=== PATIENT | female | born 1935 | race Caucasian/White ===

== ENCOUNTER 2019-05-07 17:13 | Inpatient (IN) | payer OTHER, BC ==
--- NOTE | 2019-05-07 17:26 | PDOC ---
History of Present Illness - General Stated Complaint: FALL Time Seen by Provider: 05/07/19 17:23 Past History - Past Medical History Allergies/Adverse Reactions: Allergies Allergy/AdvReac Type Severity Reaction Status Date / Time Penicillins Allergy Mild Rash Verified 05/07/19 17:27 Home Medications: Ambulatory Orders NK [No Known Home Medication] 05/07/19 COPD: Yes - Psycho Social/Smoking Cessation Hx Smoking History: Current every day smoker Have you smoked in the past 12 months: Yes Number of Cigarettes Smoked Daily: 30 'Breaking Loose' booklet given: 10/02/13 Hx Alcohol Use: No Drug/Substance Use Hx: No Substance Use Type: None ED Treatment Course - LABORATORY CBC & Chemistry Diagram: 05/07/19 18:00 05/07/19 18:00 Medical Decision Making - Medical Decision Making 05/07/19 17:49 HPI: 84yo F hx B12 deficiency (hasn't taken meds for years), smoking, and no physician f/u x 4years (doesn't want to go to doctor, PCP Nelson) presents from home (lives alone on bottom floor, ambulates without assistance, daughter-in- law lives upstairs) BIBA from home with likely syncope (vs mechanical fall) with head injury at approx 1100 this AM, unable to stand on own for approx 5hrs , in setting of NB diarrhea x several days. Riplnygu-nt-old lives upstairs but pt takes care of self on own. Pt refuses any sx. Pt states she just tripped and fell but denies LOC, head injury, any pains, any injuries, states couldn't get up so needed EMS to help but can't say why she couldn't stand up on her own. Pt denies head injury or falling on face despite obvious facial/head trauma. Pt denies syncope but cannot explain what happened or talk through events ( although once [id number] states something, pt will later repeat it as if she remembers it). At baseline pt ambulates without assistance. Remaining hx per [id number]. Endorses NB diarrhea x6 episodes over past several days. States pt is eating and drinking normally. Denies nausea, vomiting, abdominal pain, fever, chills, constipation, blood in stool, dysuria, hematuria, generalized weakness, fatigue, odd or off food, sick contacts, recent travel. Today LKN [id number] when [id number] left home. Pt returned at 1600 to find pt on floor between bathroom and kitchen. Due to cold lunch on table, daughter-in- law believes she had been there since 1100. Was unable to get pt up so called EMS. Pt denies headache, dizziness, vertigo, numbness/tingling, weakness, vision changes, shortness of breath, cough, chest pain, palpitations, leg swelling, confusion, blood thinner use, prodromal CP or palpitations or lightheadedness/dizziness, seizure like activity, incontinence, tongue-biting, back pain, neck pain, hip pain, abdominal pain. Pt states in [place] prior to fall. [id number] [place] [facility] [place] prior to today. PCP - Annlyle but hasn't been in approx 4yrs ROS: Constitutional: Negative for chills, fever, fatigue, diaphoresis. HENT: Negative for sore throat, rhinorrhea, congestion. Eyes: Negative for visual disturbance. Respiratory: Negative for shortness of breath, cough, and wheezing. Cardiovascular: Negative for chest pain, palpitations, and leg swelling. Gastrointestinal: Negative for abdominal pain, blood in stool, constipation, diarrhea, nausea, and vomiting. Genitourinary: Negative for dysuria, flank pain, and hematuria. Musculoskeletal: Negative for myalgias, back pain, and neck pain. Skin: Negative for rash. Neurological: Positive for syncope (pt denies) vs fall. Negative for light- headedness, dizziness, vertigo, weakness, numbness and headaches. Psychiatric/Behavioral: Negative for behavioral problems and confusion. PE: Gen: Alert, NAD, comfortable-appearing. HEENT: PERRL, EOMI, dry MM, NC, +ecchymosis and swelling to R forehead, + abrasion and swelling to chin. No conjunctival pallor. Sclera are non-icteric. Oropharynx is clear. CV: Regular rate and rhythm. No murmurs, rubs, or gallops. PULM: No resp distress. CTAB, no wheezes, rales, or rhonchi. ABD: soft, NT/ND, no rebound tenderness or guarding, no CVA tenderness. +Perineal excoriations per nurse Castellano. BACK: No TTP of c/t/l-spine. No step-offs or deformities. MSK: No bony deformities. 2+ pulses in all extremities. Pelvis stable, intact. NEURO: AAOx3. PERRL. CN 2-12 intact. 5/5 strength in all extremities. Sensation to light touch intact in all extremities. No pronator drift. No dysmetria. No dysdiadochokinesia. No abnormal nystagmus. EXTREMITIES: No cyanosis. No clubbing. No edema. No calf tenderness. PSYCH: Normal mood and thought pattern. SKIN: Warm and dry. Normal capillary refill. No rashes. Multiple ecchymoses diffusely. Abrasions to b/l big toes. No jaundice. MDM: 84yo F hx B12 deficiency (hasn't taken meds for years), smoking, and no physician f/u x 4years (doesn't want to go to doctor, PCP Nelson) presents from home (lives alone on bottom floor, ambulates without assistance, daughter-in- law lives upstairs) BIBA from home with likely syncope (vs mechanical fall) with head injury at approx 1100 this AM, unable to stand on own for approx 5hrs , in setting of NB diarrhea x several days. Hemodynamically stable, afebrile, neurologically intact, +ecchymosis and swelling to R forehead, +abrasion and swelling to chin. Ddx: vasovagal syncope 2/2 dehydration 2/2 diarrhea, SAH, ICH, TIA, ACS/ME, arrhythmia, infectious pathology (UTI, PNA), metabolic derangement, anemia, thyroid pathology. Obtain CTH/c-spine per [place] and [place] rules to r/o fx or ICH. No other pains or e/o trauma. -CTH/c-spine -CXR -EKG -CBC,CMP,Mg,Phos,Cardiac profile,Lipase,TSH,UA/UC -IVF -Dispo: likely admit tele obs for syncope eval 05/07/19 18:41 EKG reviewed: sinus rhythm with premature atrial complexes with aberrant conduction, 84bpm, normal intervals, QTc 465ms, low voltage QRS, no e/o acute ischemia. Compared to 08/19/13, new premature atrial complexes with aberrant conduction. 05/07/19 19:31 Labs reviewed. Trop 0.41. CK 1837 -2nd L IVF ordered CBC,CMP WBC 6.1 K/mm3 (4.0-10.0) 05/07/19 18:00 RBC 4.94 M/mm3 (3.60-5.2) 05/07/19 18:00 Hgb 14.2 GM/dL (10.7-15.3) 05/07/19 18:00 Hct 43.3 % (32.4-45.2) 05/07/19 18:00 MCV 87.6 fl (80-96) 05/07/19 18:00 MCH 28.7 pg (25.7-33.7) 05/07/19 18:00 MCHC 32.7 g/dl (32.0-36.0) 05/07/19 18:00 RDW 14.4 % (11.6-15.6) D 05/07/19 18:00 Plt Count 200 K/MM3 (134-434) 05/07/19 18:00 MPV 8.5 fl (7.5-11.1) 05/07/19 18:00 Absolute Neuts (auto) 5.7 K/mm3 (1.5-8.0) 05/07/19 18:00 Neutrophils % 93.7 % (42.8-82.8) H D 05/07/19 18:00 Lymphocytes % 2.3 % (8-40) L D 05/07/19 18:00 Monocytes % 3.9 % (3.8-10.2) 05/07/19 18:00 Eosinophils % 0.0 % (0-4.5) D 05/07/19 18:00 Basophils % 0.1 % (0-2.0) 05/07/19 18:00 Nucleated RBC % 0 % (0-0) 05/07/19 18:00 Sodium 139 mmol/L (136-145) 05/07/19 18:00 Potassium 4.1 mmol/L (3.5-5.1) 05/07/19 18:00 Chloride 109 mmol/L (98-107) H 05/07/19 18:00 Carbon Dioxide 23 mmol/L (21-32) 05/07/19 18:00 Anion Gap 7 MMOL/L (8-16) L 05/07/19 18:00 BUN 21.4 mg/dL (7-18) H 05/07/19 18:00 Creatinine 0.9 mg/dL (0.55-1.3) 05/07/19 18:00 Est GFR (CKD-EPI)AfAm 68.53 05/07/19 18:00 Est GFR (CKD-EPI)NonAf 59.13 05/07/19 18:00 Random Glucose 121 mg/dL (74-106) H 05/07/19 18:00 Calcium 8.6 mg/dL (8.5-10.1) 05/07/19 18:00 Phosphorus 2.6 mg/dL (2.5-4.9) 05/07/19 18:00 Magnesium 2.3 mg/dL (1.8-2.4) 05/07/19 18:00 Total Bilirubin 0.8 mg/dL (0.2-1) 05/07/19 18:00 AST 45 U/L (15-37) H 05/07/19 18:00 ALT 27 U/L (13-61) 05/07/19 18:00 Alkaline Phosphatase 178 U/L (45-117) H 05/07/19 18:00 Creatine Kinase 1837 U/L (26-192) H 05/07/19 18:00 Creatine Kinase Index 0.5 % (0.0-5.0) 05/07/19 18:00 CK-MB (CK-2) 11.0 ng/mL (0.5-3.6) H 05/07/19 18:00 Troponin I 0.41 ng/ml (0.00-0.05) H 05/07/19 18:00 Total Protein 6.9 g/dl (6.4-8.2) 05/07/19 18:00 Albumin 3.2 g/dl (3.4-5.0) L 05/07/19 18:00 Lipase 103 U/L (73-393) 05/07/19 18:00 TSH 0.82 uIU/ml (0.358-3.74) 05/07/19 18:00 CTH reviewed. Negative for acute pathology. Pending CT c-spine read, CXR, labs. Pt informed of results and agrees to admission. Pt signed out to Dr Castro. Discharge - Discharge Information Problems reviewed: Yes Clinical Impression/Diagnosis: Head injury, Syncope and collapse, Syncope, Elevated troponin - Follow up/Referral Referrals: Aretha Damon MD [Staff Physician] - - Patient Discharge Instructions - Post Discharge Activity
[2019-05-07] MEDS ORDERED: SODIUM CHLORIDE 0.9% 500 ML INFUS.BAG IV ONE ×2 (17:48→19:30)
[2019-05-07 18:26] VITALS: BMI 21.2
[2019-05-07 18:26] LABS: BASO % 0.1 % (0-2.0); HEMATOCRIT 43.3 % (32.4-45.2); HEMOGLOBIN 14.2 GM/dL (10.7-15.3); LYMPH % 2.3 % (8-40); MCH 28.7 pg (25.7-33.7); MCHC 32.7 g/dl (32.0-36.0); MEAN CELL VOLUME 87.6 fl (80-96); MEAN PLT VOLUME 8.5 fl (7.5-11.1); MONO % 3.9 % (3.8-10.2); NEUT % 93.7 % (42.8-82.8); PLATELET COUNT 200 K/MM3 (134-434); RBC 4.94 M/mm3 (3.60-5.2); RDW 14.4 % (11.6-15.6); WHITE BLOOD COUNT 6.1 K/mm3 (4.0-10.0)
[2019-05-07 18:58] LABS: PROTHROMBIN TIME (PATIENT) 11.8 SEC (9.7-13.0)
[2019-05-07 19:01] LABS: ACTIVATED PTT 24.3 SECONDS (25.2-36.5)
[2019-05-07 19:07] LABS: MAGNESIUM 2.3 mg/dL (1.8-2.4)
[2019-05-07 19:11] LABS: ALBUMIN 3.2 g/dl (3.4-5.0); BILIRUBIN,TOTAL 0.8 mg/dL (0.2-1); BLOOD UREA NITROGEN 21.4 mg/dL (7-18); CALCIUM 8.6 mg/dL (8.5-10.1); CREATININE 0.9 mg/dL (0.55-1.3); PHOSPHOROUS 2.6 mg/dL (2.5-4.9); POTASSIUM 4.1 mmol/L (3.5-5.1); TOT PROT 6.9 g/dl (6.4-8.2)
[2019-05-07 19:23] LABS: EPI CELLS 2.4 /HPF (0-5/HPF); HYALINE CASTS 34 /lpf (0-8); URINE APPEARANCE CLOUDY; URINE BACTERIA 12.4 /hpf (NEGATIVE); URINE BILIRUBIN NEGATIVE (NEGATIVE); URINE COLOR YELLOW; URINE GLUCOSE (UA) NEGATIVE (NEGATIVE); URINE KETONE TRACE (NEGATIVE); URINE LEUK ESTERASE NEGATIVE (NEGATIVE); URINE NITRITE NEGATIVE (NEGATIVE); URINE PROTEIN TRACE (NEGATIVE); URINE RBC 3 /hpf (0-4); URINE UROBILINOGEN 0.2 mg/dL (0.2-1.0); URINE WBC 2 /hpf (0-5)
[2019-05-07] MEDS ORDERED: ASPIRIN 81 MG CHEWABLE TABLETS PO ONE (19:46)
--- NOTE | 2019-05-07 19:54 | PDOC ---
*Physical Exam - Vital Signs Last Vital Signs Temp Pulse Resp BP Pulse Ox 99.1 F 82 16 125/70 99 05/07/19 17:28 05/07/19 17:28 05/07/19 17:28 05/07/19 17:28 05/07/19 17:28 ED Treatment Course - LABORATORY CBC & Chemistry Diagram: 05/07/19 18:00 05/07/19 18:00 - ADDITIONAL ORDERS Additional order review: Laboratory Results 05/07/19 05/07/19 05/07/19 18:00 18:00 18:00 PT with INR 11.80 INR 1.00 PTT (Actin FS) 24.3 L Sodium Potassium Chloride Carbon Dioxide Anion Gap BUN Creatinine Est GFR (CKD-EPI)AfAm Est GFR (CKD-EPI)NonAf Random Glucose Calcium Phosphorus Magnesium 2.3 Total Bilirubin AST ALT Alkaline Phosphatase Creatine Kinase Creatine Kinase Index CK-MB (CK-2) Troponin I Total Protein Albumin Lipase 103 TSH Urine Color Yellow Urine Appearance Cloudy Urine pH 5.0 Ur Specific [place] 1.029 Urine Protein Trace Urine Glucose (UA) Negative Urine Ketones Trace H Urine Blood 1+ H Urine Nitrite Negative Urine Bilirubin Negative Urine Urobilinogen 0.2 Ur Leukocyte Esterase Negative Urine WBC (Auto) 2 Urine RBC (Auto) 3 Urine Casts (Auto) 34 U Epithel Cells (Auto) 2.4 Urine Bacteria (Auto) 12.4 05/07/19 18:00 PT with INR INR PTT (Actin FS) Sodium 139 Potassium 4.1 Chloride 109 H Carbon Dioxide 23 Anion Gap 7 L BUN 21.4 H Creatinine 0.9 Est GFR (CKD-EPI)AfAm 68.53 Est GFR (CKD-EPI)NonAf 59.13 Random Glucose 121 H Calcium 8.6 Phosphorus 2.6 Magnesium Total Bilirubin 0.8 AST 45 H ALT 27 Alkaline Phosphatase 178 H Creatine Kinase 1837 H Creatine Kinase Index 0.5 CK-MB (CK-2) 11.0 H Troponin I 0.41 H Total Protein 6.9 Albumin 3.2 L Lipase TSH 0.82 Urine Color Urine Appearance Urine pH Ur Specific [place] Urine Protein Urine Glucose (UA) Urine Ketones Urine Blood Urine Nitrite Urine Bilirubin Urine Urobilinogen Ur Leukocyte Esterase Urine WBC (Auto) Urine RBC (Auto) Urine Casts (Auto) U Epithel Cells (Auto) Urine Bacteria (Auto) 05/07/19 18:00 RBC 4.94 MCV 87.6 MCHC 32.7 RDW 14.4 D MPV 8.5 Neutrophils % 93.7 H D Lymphocytes % 2.3 L D Monocytes % 3.9 Eosinophils % 0.0 D Basophils % 0.1 - RADIOLOGY Radiograph Interpretation: CT/HEAD CT WITHOUT CONTRAST Cranial CT without contrast Impression: No CT evidence of acute intracranial pathology. 05/07/19 19:56 CT/CERVICAL SPINE CT W/O CONTR Cervical spine CT without contrast Impression: No fracture is identified. 05/07/19 21:25 - Medications Given in the ED: ED Medications Discontinued Medications Generic Name Dose Route Start Last Admin Trade Name Freq PRN Reason Stop Dose Admin Sodium Chloride 1,000 ml 05/07/19 17:48 05/07/19 18:48 Normal Saline - IV 05/07/19 17:49 1,000 ml ONCE ONE Administration Medical Decision Making - Medical Decision Making The pt is an 84F w/ no reported PMH who presents s/p syncopal fall Received sign out from day team Pt noted to have Troponinemia to 0.41 -Will give ASA 324mg PO once Lytes unremarkable No leukocytosis No anemia Plan for admission for syncope and Troponinemia 05/07/19 19:48 Call placed to [facility], message left, awaiting call back 05/07/19 21:25 Increase in Trop from 0.41 to 0.61 noted, pt s/p ASA. Repeat ECG similar to previous. Pt currently w/o chest pain/pressure Case discussed with Dr. Guaman, will not initiate AC at this time Inpatient team updated 05/08/19 04:38 Discharge - Discharge Information Problems reviewed: Yes Clinical Impression/Diagnosis: Syncope and collapse, Elevated troponin Head injury Qualifiers: Encounter type: initial encounter Qualified Code(s): S09.90XA - Unspecified injury of head, initial encounter Syncope Qualifiers: Syncope type: unspecified Qualified Code(s): R55 - Syncope and collapse Condition: Fair - Admission Yes - Follow up/Referral - Patient Discharge Instructions - Post Discharge Activity
--- NOTE | 2019-05-07 19:55 | PDOC ---
Documentation entered by Shanna Flood SCRIBE, acting as scribe for Megan Jean Baptiste MD. Megan Jean Baptiste MD: This documentation has been prepared by the amberibe, Shanna Flood SCRIBE, under my direction and personally reviewed by me in its entirety. I confirm that the documentation accurately reflects all work, treatment, procedures, and medical decision making performed by me. Attending Attestation - Resident Resident Name: Samantha Valdez - ED Attending Attestation I have performed the following: I have examined & evaluated the patient, The case was reviewed & discussed with the resident, I agree w/resident's findings & plan, Exceptions are as noted - HPI HPI: 05/07/19 19:50 84-year-old female brought in by ambulance from home after being found on the floor by the family at approximately 4 PM this afternoon HPI the family states that 730 the patient was and her normal state which is alert and oriented and ambulatory taking care of her activities of daily living They have noted over the past few weeks she seems to have had some increased confusion, she has been weaker than usual and she has had 3-4 episodes of diarrhea Patient was not aware that she fell until was pointed out to her that she had abrasions on the chin and her forehead - Physicial Exam PE: 05/08/19 00:07 I agree with the resident's physical exam - Medical Decision Making 05/07/19 19:55CAT scan of the head did not show any acute intracranial pathology , no skull fracture no bleed no infarct Her troponin however is elevated to 0.41 Her CPKs also above 1800 consistent with being on the floor for some time Patient needs to be admitted to telemetry Impression probable syncope, TIA, ACS
[2019-05-07] MEDS ORDERED: ASPIRIN 81 MG CHEWABLE TABLETS ONE (19:58)
[2019-05-07 20:47] LABS: MACROCYTOSIS 1+; PLATELET ESTIMATE ADEQUATE
--- NOTE | 2019-05-08 00:44 | HP ---
Admitting History and Physical - Primary Care Physician PCP: Giuliana Llamas - Admission Chief Complaint: Syncope History of Present Illness: This is a 84 y/o woman with a PMHx of Who presents to the ED by ambulance from home after being found on the floor by the family at approximately 4 PM yesterday afternoon. Per the ED record: HPI the family states that 730 the patient was and her normal state which is alert and oriented and ambulatory taking care of her activities of daily living. They have noted over the past few weeks she seems to have had some increased confusion, she has been weaker than usual and she has had 3-4 episodes of diarrhea. The patient was not aware that she fell until was pointed out to her that she had abrasions on the chin and her forehead History Source: Family Member Limitations to Obtaining History: Clinical Condition, Poor Historian - Past Medical History Heme/Onc: Yes: B12 Deficiency - Smoking History Smoking history: Current every day smoker Have you smoked in the past 12 months: Yes Aproximately how many cigarettes per day: 30 - Alcohol/Substance Use Hx Alcohol Use: No History of Substance Use: reports: None - Social History Usual Living Arrangement: Yes: Alone ADL: Family Assistance History of Recent Travel: No Home Medications - Allergies Allergies/Adverse Reactions: Allergies Allergy/AdvReac Type Severity Reaction Status Date / Time Penicillins Allergy Mild Rash Verified 05/07/19 17:27 - Home Medications Home Medications: Ambulatory Orders NK [No Known Home Medication] 05/07/19 Family Medical History Family History: Unable to Obtain Review of Systems Unable to obtain ROS, reason: Poor Historian Physical Examination Vital Signs: Vital Signs Temperature 99.1 F 05/07/19 17:28 Pulse Rate 81 05/07/19 23:48 Respiratory Rate 20 05/07/19 23:48 Blood Pressure 110/60 05/07/19 23:48 O2 Sat by Pulse Oximetry (%) 99 05/07/19 23:48 Constitutional: Yes: Well Nourished, No Distress, Calm Eyes: Yes: WNL, Conjunctiva Clear, EOM Intact HENT: Yes: Normocephalic, Other (superficial abrasions to face, chin) Neck: Yes: WNL, Supple, Trachea Midline Cardiovascular: Yes: Pulse Irregular, S1, S2 Respiratory: Yes: WNL, Regular, CTA Bilaterally Gastrointestinal: Yes: WNL, Normal Bowel Sounds, Soft Renal/: Yes: Incontinence Breast(s): Yes: WNL Musculoskeletal: Yes: WNL Extremities: Yes: WNL Edema: No Peripheral Pulses WNL: Yes Integumentary: Yes: Erythema, Other (scab, erthema to b/l knees- appears old) Wound/Incision: Yes: Open to air Neurological: Yes: Alert, Confusion, Cran Nerves II-XII Intact ...Motor Strength: WNL Psychiatric: Yes: Alert Labs: CBC, BMP 05/07/19 18:00 05/07/19 18:00 Laboratory Results - last 24 hr 05/07/19 05/07/19 05/07/19 18:00 18:00 18:00 WBC 6.1 RBC 4.94 Hgb 14.2 Hct 43.3 MCV 87.6 MCH 28.7 MCHC 32.7 RDW 14.4 D Plt Count 200 MPV 8.5 Absolute Neuts (auto) 5.7 Total Counted 100 Neutrophils % 93.7 H D Neutrophils % (Manual) 82.0 Band Neutrophils % 8.0 Lymphocytes % 2.3 L D Lymphocytes % (Manual) 6.0 L Monocytes % 3.9 Monocytes % (Manual) 4 Eosinophils % 0.0 D Basophils % 0.1 Nucleated RBC % 0 Differential Comment Man diff performed Platelet Estimate Adequate Platelet Comment Slide scanned. Polychromasia 1+ Macrocytosis 1+ PT with INR INR PTT (Actin FS) Sodium 139 Potassium 4.1 Chloride 109 H Carbon Dioxide 23 Anion Gap 7 L BUN 21.4 H Creatinine 0.9 Est GFR (CKD-EPI)AfAm 68.53 Est GFR (CKD-EPI)NonAf 59.13 Random Glucose 121 H Calcium 8.6 Phosphorus 2.6 Magnesium 2.3 Total Bilirubin 0.8 AST 45 H ALT 27 Alkaline Phosphatase 178 H Creatine Kinase 1837 H Creatine Kinase Index 0.5 CK-MB (CK-2) 11.0 H Troponin I 0.41 H Total Protein 6.9 Albumin 3.2 L Lipase 103 Vitamin B12 TSH 0.82 Urine Color Urine Appearance Urine pH Ur Specific [place] Urine Protein Urine Glucose (UA) Urine Ketones Urine Blood Urine Nitrite Urine Bilirubin Urine Urobilinogen Ur Leukocyte Esterase Urine WBC (Auto) Urine RBC (Auto) Urine Casts (Auto) U Pathogenic Cast Auto U Epithel Cells (Auto) Urine Bacteria (Auto) 05/07/19 05/07/19 05/07/19 18:00 18:00 21:40 WBC RBC Hgb Hct MCV MCH MCHC RDW Plt Count MPV Absolute Neuts (auto) Total Counted Neutrophils % Neutrophils % (Manual) Band Neutrophils % Lymphocytes % Lymphocytes % (Manual) Monocytes % Monocytes % (Manual) Eosinophils % Basophils % Nucleated RBC % Differential Comment Platelet Estimate Platelet Comment Polychromasia Macrocytosis PT with INR 11.80 INR 1.00 PTT (Actin FS) 24.3 L Sodium Potassium Chloride Carbon Dioxide Anion Gap BUN Creatinine Est GFR (CKD-EPI)AfAm Est GFR (CKD-EPI)NonAf Random Glucose Calcium Phosphorus Magnesium Total Bilirubin AST ALT Alkaline Phosphatase Creatine Kinase 3037 H Creatine Kinase Index 0.6 CK-MB (CK-2) 18.4 H Troponin I 0.61 H* Total Protein Albumin Lipase Vitamin B12 TSH Urine Color Yellow Urine Appearance Cloudy Urine pH 5.0 Ur Specific [place] 1.029 Urine Protein Trace Urine Glucose (UA) Negative Urine Ketones Trace H Urine Blood 1+ H Urine Nitrite Negative Urine Bilirubin Negative Urine Urobilinogen 0.2 Ur Leukocyte Esterase Negative Urine WBC (Auto) 2 Urine RBC (Auto) 3 Urine Casts (Auto) 34 U Pathogenic Cast Auto Few U Epithel Cells (Auto) 2.4 Urine Bacteria (Auto) 12.4 05/07/19 21:40 WBC RBC Hgb Hct MCV MCH MCHC RDW Plt Count MPV Absolute Neuts (auto) Total Counted Neutrophils % Neutrophils % (Manual) Band Neutrophils % Lymphocytes % Lymphocytes % (Manual) Monocytes % Monocytes % (Manual) Eosinophils % Basophils % Nucleated RBC % Differential Comment Platelet Estimate Platelet Comment Polychromasia Macrocytosis PT with INR INR PTT (Actin FS) Sodium Potassium Chloride Carbon Dioxide Anion Gap BUN Creatinine Est GFR (CKD-EPI)AfAm Est GFR (CKD-EPI)NonAf Random Glucose Calcium Phosphorus Magnesium Total Bilirubin AST ALT Alkaline Phosphatase Creatine Kinase Creatine Kinase Index CK-MB (CK-2) Troponin I Total Protein Albumin Lipase Vitamin B12 312 TSH Urine Color Urine Appearance Urine pH Ur Specific [place] Urine Protein Urine Glucose (UA) Urine Ketones Urine Blood Urine Nitrite Urine Bilirubin Urine Urobilinogen Ur Leukocyte Esterase Urine WBC (Auto) Urine RBC (Auto) Urine Casts (Auto) U Pathogenic Cast Auto U Epithel Cells (Auto) Urine Bacteria (Auto) Intake & Output 05/05/19 05/06/19 05/07/1908/20 23:59 23:59 23:59 23:59 Weight 63.503 kg Current Medications Generic Name Dose Route Start Last Admin Trade Name Valentina PRN Reason Stop Dose Admin Aspirin 81 mg 05/08/19 10:00 Asa - PO DAILY CHON Sodium Chloride 1,000 mls @ 60 mls/hr 05/08/19 05:45 Normal Saline - IV ASDIR CHON Imaging - Results Chest X-ray: Image Reviewed Cat Scan: Report Reviewed, Image Reviewed EKG: Image Reviewed Problem List - Problems (1) Syncope Code(s): R55 - SYNCOPE AND COLLAPSE Qualifiers: Syncope type: unspecified Qualified Code(s): R55 - Syncope and collapse (2) Elevated troponin Code(s): R79.89 - OTHER SPECIFIED ABNORMAL FINDINGS OF BLOOD CHEMISTRY (3) Head injury Code(s): S09.90XA - UNSPECIFIED INJURY OF HEAD, INITIAL ENCOUNTER Qualifiers: Encounter type: initial encounter Qualified Code(s): S09.90XA - Unspecified injury of head, initial encounter (4) Vitamin B 12 deficiency Code(s): E53.8 - DEFICIENCY OF OTHER SPECIFIED B GROUP VITAMINS Assessment/Plan This is a 84 y/o woman with a PMHx of Vitamin B12 Deficiency (no taking meds> yrs), Smoker. Admitted to Telemetry for Syncope, s/p Fall Troponinemia for further evaluation of their emergent condition. Plan: # Syncope Likely secondary to arrhythmia vs vasovagal vs Dehydration Continue cardiac monitoring Serial Enzymes EKG reviewed Head CT reviewed Chest Xray-reviewed Echo Appreciate Cardiology consult Monitor CBC, BMP Fall Precautions # s/p Fall at Home see above Head CT- reviewed C-Spine CT- reviewed # Troponinemia r/o [place] Possibly due to rhabdomyolysis Cardiac monitoring Appreciate Cardiology consult- ED resident discussed case with Dr. Olivares - no AC NS bolus x2 given in ED Gentle IVF Trend CE Echo in am Serial EKGs # Vitamin B12 Deficiency stable B12 level- 312 FEN PO fluids as tolerated Replete lytes prn Low Na Diet DVT ppx OOB SCDs Heparin SQ Dispo: Requires Inpatient Care Visit type - Emergency Visit Emergency Visit: Yes ED Registration Date: 05/07/19 Care time: The patient presented to the Emergency Department on the above date and was hospitalized for further evaluation of their emergent condition. - New Patient This patient is new to me today: Yes Date on this admission: 05/08/19 - Critical Care Critical Care patient: No
[2019-05-08] MEDS ORDERED: SODIUM CHLORIDE 1,000 ML IV SCH ×2 (05:45→13:15)
[2019-05-08 05:54] LABS: BASO % 0.2 % (0-2.0); HEMATOCRIT 40.2 % (32.4-45.2); HEMOGLOBIN 13.2 GM/dL (10.7-15.3); LYMPH % 3.8 % (8-40); MCH 28.5 pg (25.7-33.7); MEAN CELL VOLUME 86.5 fl (80-96); MEAN PLT VOLUME 8.2 fl (7.5-11.1); MONO % 7.2 % (3.8-10.2); NEUT % 88.8 % (42.8-82.8); PLATELET COUNT 177 K/MM3 (134-434); RBC 4.64 M/mm3 (3.60-5.2); RDW 14.1 % (11.6-15.6); WHITE BLOOD COUNT 4.7 K/mm3 (4.0-10.0)
[2019-05-08 06:48] LABS: BLOOD UREA NITROGEN 15.2 mg/dL (7-18); CREATININE 0.7 mg/dL (0.55-1.3); PHOSPHOROUS 2.6 mg/dL (2.5-4.9); POTASSIUM 3.5 mmol/L (3.5-5.1)
--- NOTE | 2019-05-08 09:02 | PN ---
Progress Note, Physician - Current Medication List Current Medications: Active Medications Aspirin (Asa -) 81 mg PO DAILY [facility] Sodium Chloride (Normal Saline -) 1,000 mls @ 60 mls/hr IV ASDIR CHON Last Admin: 05/08/19 06:23 Dose: 60 mls/hr - Objective Vital Signs: Vital Signs Temperature 98.3 F 05/08/19 02:55 Pulse Rate 74 05/08/19 07:29 Respiratory Rate 16 05/08/19 07:29 Blood Pressure 123/68 05/08/19 07:29 O2 Sat by Pulse Oximetry (%) 94 L 05/08/19 07:29 Cardiovascular: Yes: Pulse Irregular, S1, S2 Respiratory: Yes: Regular, CTA Bilaterally Gastrointestinal: Yes: Normal Bowel Sounds, Soft Edema: No Labs: CBC, BMP 05/08/19 05:37 05/08/19 05:37 INR, PTT INR 1.00 (0.83-1.09) 05/07/19 18:00 Problem List - Problems (1) Syncope Assessment/Plan: Likely secondary to arrhythmia vs vasovagal vs Dehydration Continue cardiac monitoring Serial Enzymes EKG reviewed Head CT nad--mri Echo Cardiology consult Monitor CBC, BMP Fall Precautions Code(s): R55 - SYNCOPE AND COLLAPSE Qualifiers: Syncope type: unspecified Qualified Code(s): R55 - Syncope and collapse (2) Elevated troponin Assessment/Plan: r/o MT Cardiac monitoring Cardiology consult- ED Trend CE Echo Serial EKGs Code(s): R79.89 - OTHER SPECIFIED ABNORMAL FINDINGS OF BLOOD CHEMISTRY (3) Vitamin B 12 deficiency Code(s): E53.8 - DEFICIENCY OF OTHER SPECIFIED B GROUP VITAMINS (4) Fall Assessment/Plan: Head CT- reviewed C-Spine CT- no fx--djd Code(s): W19.XXXA - UNSPECIFIED FALL, INITIAL ENCOUNTER (5) Diarrhea Assessment/Plan: ivf cultures monitor Code(s): R19.7 - DIARRHEA, UNSPECIFIED (6) Rhabdomyolysis Assessment/Plan: ivf monitor renal consult Code(s): M62.82 - RHABDOMYOLYSIS (7) Arrhythmia Assessment/Plan: maybe pvc/apc monitor ekg Code(s): I49.9 - CARDIAC ARRHYTHMIA, UNSPECIFIED
[2019-05-08] MEDS ORDERED: POTASSIUM CHLORIDE TABS 20 MEQ TABLET.ER (FP) PO ONE ×2 (09:52→12:23)
[2019-05-08] MEDS: ASPIRIN 81 MG CHEWABLE TABLETS PO SCH (10:00)
[2019-05-08] MEDS ORDERED: D5-1/2NS+30 MEQ KCL - 30 MEQ/1,000 ML INFUS.BAG IV SCH (10:00)
--- NOTE | 2019-05-08 11:35 | EKG ---
Test Reason : Blood Pressure : / mmHG Vent. Rate : 076 BPM Atrial Rate : 076 BPM P-R Int : 184 ms QRS Dur : 082 ms QT Int : 420 ms P-R-T Axes : 000 -14 039 degrees QTc Int : 472 ms POOR DATA QUALITY, INTERPRETATION MAY BE ADVERSELY AFFECTED SINUS RHYTHM WITH PREMATURE ATRIAL COMPLEXES AND PREMATURE VENTRICULAR COMPLEXES OR FUSION COMPLEXES LOW VOLTAGE QRS NONSPECIFIC ST ABNORMALITY ABNORMAL ECG WHEN COMPARED WITH ECG OF 19-AUG-2013 17:36, FUSION COMPLEXES ARE NOW PRESENT PREMATURE VENTRICULAR COMPLEXES ARE NOW PRESENT PREMATURE ATRIAL COMPLEXES ARE NOW PRESENT NONSPECIFIC T WAVE ABNORMALITY, WORSE IN ANTEROLATERAL LEADS Confirmed by BEATRICE RIGGS, TERESSA ([id number]) on 05/08/2019 11:35:16 AM Referred By: Confirmed By:TERESSA BARRON MD
--- NOTE | 2019-05-08 11:36 | EKG ---
Test Reason : Blood Pressure : / mmHG Vent. Rate : 084 BPM Atrial Rate : 084 BPM P-R Int : 172 ms QRS Dur : 086 ms QT Int : 394 ms P-R-T Axes : 089 -19 040 degrees QTc Int : 465 ms SINUS RHYTHM WITH PREMATURE ATRIAL COMPLEXES WITH ABERRANT CONDUCTION LOW VOLTAGE QRS CANNOT RULE OUT ANTERIOR INFARCT , AGE UNDETERMINED ABNORMAL ECG WHEN COMPARED WITH ECG OF 19-AUG-2013 17:36, ABERRANT CONDUCTION IS NOW PRESENT Confirmed by BEATRICE RIGGS, TERESSA ([id number]) on 05/08/2019 11:36:02 AM Referred By: Confirmed By:TERESSA BARRON MD
--- NOTE | 2019-05-08 11:37 | EKG ---
Test Reason : Blood Pressure : / mmHG Vent. Rate : 076 BPM Atrial Rate : 076 BPM P-R Int : 184 ms QRS Dur : 088 ms QT Int : 472 ms P-R-T Axes : 064 011 052 degrees QTc Int : 531 ms SINUS RHYTHM WITH PREMATURE SUPRAVENTRICULAR COMPLEXES AND WITH OCCASIONAL PREMATURE VENTRICULAR COMPLEXES LOW VOLTAGE QRS PROLONGED QT ABNORMAL ECG WHEN COMPARED WITH ECG OF 07-MAY-2019 21:56, FUSION COMPLEXES ARE NO LONGER PRESENT NONSPECIFIC T WAVE ABNORMALITY NO LONGER EVIDENT IN ANTERIOR LEADS QT HAS LENGTHENED Confirmed by BEATRICE RIGGS, TERESSA ([id number]) on 05/08/2019 11:36:57 AM Referred By: GREGORIO CAI Confirmed By:TERESSA BARRON MD
--- NOTE | 2019-05-08 13:19 | CONSULT ---
Consultation: REQUESTING PROVIDER: NEPHROLOGY SERVICE CONSULT REQUEST: We have been asked to medically evaluate this patient for rhabdomyolysis. HISTORY OF PRESENT ILLNESS: Pt is an 84 y/o F with no known PMH (does not see a doctor regularly) who presents to ED [facility] after being found down at home. Pt was admitted for DDx syncope/CVA/arrhythmia. Nephrology was consulted for rhabdomyolysis. On my interview, pt was accompanied by [id number] who aided in history. She estimates that the pt was down for about 3 hours. Pt does not recall the events of or surrounding her fall. Pt also has been complaining of diarrhea for the last few weeks, 2-3 episodes per day. Family states pt is becoming mildly forgetful. REVIEW OF SYSTEMS: CONSTITUTIONAL: Absent: fever, chills, diaphoresis, generalized weakness, malaise, loss of appetite, weight change HEENT: Absent: rhinorrhea, nasal congestion, throat pain, throat swelling, difficulty swallowing, mouth swelling, ear pain, eye pain, visual changes CARDIOVASCULAR: Absent: chest pain, syncope, palpitations, irregular heart rate, lightheadedness , peripheral edema RESPIRATORY: Absent: cough, shortness of breath, dyspnea with exertion, orthopnea, wheezing, stridor, hemoptysis GASTROINTESTINAL:diarrhea, Absent: abdominal pain, abdominal distension, nausea, vomiting, constipation, melena, hematochezia GENITOURINARY: Absent: dysuria, frequency, urgency, hesitancy, hematuria, flank pain, genital pain MUSCULOSKELETAL: Absent: myalgia, arthralgia, joint swelling, back pain, neck pain SKIN: Absent: rash, itching, pallor HEMATOLOGIC/IMMUNOLOGIC: Absent: easy bleeding, easy bruising, lymphadenopathy, frequent infections ENDOCRINE: Absent: unexplained weight gain, unexplained weight loss, heat intolerance, cold intolerance NEUROLOGIC: LOC Absent: headache, focal weakness or paresthesias, dizziness, unsteady gait, seizure, mental status changes, bladder or bowel incontinence PSYCHIATRIC: Absent: anxiety, depression, suicidal or homicidal ideation, hallucinations. PHYSICAL EXAMINATION Vital Signs - 24 hr 05/07/19 05/07/19 05/08/19 17:28 23:48 02:55 Temperature 99.1 F 98.3 F Pulse Rate 82 Pulse Rate [ 81 76 Radial] Pulse Rate [ Right Radial] Respiratory 16 20 18 Rate Blood Pressure 125/70 Blood Pressure 110/60 135/74 [Left Arm] Blood Pressure [Right Arm] O2 Sat by Pulse 99 99 95 Oximetry (%) 05/08/19 05/08/19 05/08/19 04:43 07:29 12:58 Temperature 97.5 F L Pulse Rate Pulse Rate [ 73 Radial] Pulse Rate [ 74 65 Right Radial] Respiratory 20 16 18 Rate Blood Pressure Blood Pressure 137/84 [Left Arm] Blood Pressure 123/68 125/70 [Right Arm] O2 Sat by Pulse 96 94 L 97 Oximetry (%) GEN: NAD HEENT: facial abrasions, EOMI Neck: no bruits Cardio: soft heart sounds, regular, s1s2, no mrg noted Pulm: mild late expiratory wheeze L base Abd: soft, nontender, nondistended Ext: no edema noted Laboratory Results - last 24 hr 05/07/19 05/07/19 05/07/19 18:00 18:00 18:00 WBC 6.1 RBC 4.94 Hgb 14.2 Hct 43.3 MCV 87.6 MCH 28.7 MCHC 32.7 RDW 14.4 D Plt Count 200 MPV 8.5 Absolute Neuts (auto) 5.7 Total Counted 100 Neutrophils % 93.7 H D Neutrophils % (Manual) 82.0 Band Neutrophils % 8.0 Lymphocytes % 2.3 L D Lymphocytes % (Manual) 6.0 L Monocytes % 3.9 Monocytes % (Manual) 4 Eosinophils % 0.0 D Basophils % 0.1 Nucleated RBC % 0 Differential Comment Man diff performed Platelet Estimate Adequate Platelet Comment Slide scanned. Polychromasia 1+ Macrocytosis 1+ PT with INR INR PTT (Actin FS) Sodium 139 Potassium 4.1 Chloride 109 H Carbon Dioxide 23 Anion Gap 7 L BUN 21.4 H Creatinine 0.9 Est GFR (CKD-EPI)AfAm 68.53 Est GFR (CKD-EPI)NonAf 59.13 Random Glucose 121 H Calcium 8.6 Phosphorus 2.6 Magnesium 2.3 Total Bilirubin 0.8 AST 45 H ALT 27 Alkaline Phosphatase 178 H Creatine Kinase 1837 H Creatine Kinase Index 0.5 CK-MB (CK-2) 11.0 H Troponin I 0.41 H Total Protein 6.9 Albumin 3.2 L Triglycerides Cholesterol Total LDL Cholesterol HDL Cholesterol Lipase 103 Vitamin B12 TSH 0.82 Urine Color Urine Appearance Urine pH Ur Specific [place] Urine Protein Urine Glucose (UA) Urine Ketones Urine Blood Urine Nitrite Urine Bilirubin Urine Urobilinogen Ur Leukocyte Esterase Urine WBC (Auto) Urine RBC (Auto) Urine Casts (Auto) U Pathogenic Cast Auto U Epithel Cells (Auto) Urine Bacteria (Auto) 05/07/19 05/07/19 05/07/19 18:00 18:00 21:40 WBC RBC Hgb Hct MCV MCH MCHC RDW Plt Count MPV Absolute Neuts (auto) Total Counted Neutrophils % Neutrophils % (Manual) Band Neutrophils % Lymphocytes % Lymphocytes % (Manual) Monocytes % Monocytes % (Manual) Eosinophils % Basophils % Nucleated RBC % Differential Comment Platelet Estimate Platelet Comment Polychromasia Macrocytosis PT with INR 11.80 INR 1.00 PTT (Actin FS) 24.3 L Sodium Potassium Chloride Carbon Dioxide Anion Gap BUN Creatinine Est GFR (CKD-EPI)AfAm Est GFR (CKD-EPI)NonAf Random Glucose Calcium Phosphorus Magnesium Total Bilirubin AST ALT Alkaline Phosphatase Creatine Kinase 3037 H Creatine Kinase Index 0.6 CK-MB (CK-2) 18.4 H Troponin I 0.61 H* Total Protein Albumin Triglycerides Cholesterol Total LDL Cholesterol HDL Cholesterol Lipase Vitamin B12 TSH Urine Color Yellow Urine Appearance Cloudy Urine pH 5.0 Ur Specific [place] 1.029 Urine Protein Trace Urine Glucose (UA) Negative Urine Ketones Trace H Urine Blood 1+ H Urine Nitrite Negative Urine Bilirubin Negative Urine Urobilinogen 0.2 Ur Leukocyte Esterase Negative Urine WBC (Auto) 2 Urine RBC (Auto) 3 Urine Casts (Auto) 34 U Pathogenic Cast Auto Few U Epithel Cells (Auto) 2.4 Urine Bacteria (Auto) 12.4 05/07/19 05/08/19 05/08/19 21:40 05:37 05:37 WBC 4.7 RBC 4.64 Hgb 13.2 Hct 40.2 MCV 86.5 MCH 28.5 MCHC 33.0 RDW 14.1 Plt Count 177 MPV 8.2 Absolute Neuts (auto) 4.2 Total Counted Neutrophils % 88.8 H Neutrophils % (Manual) Band Neutrophils % Lymphocytes % 3.8 L D Lymphocytes % (Manual) Monocytes % 7.2 D Monocytes % (Manual) Eosinophils % 0.0 Basophils % 0.2 Nucleated RBC % 0 Differential Comment Platelet Estimate Platelet Comment Polychromasia Macrocytosis PT with INR INR PTT (Actin FS) Sodium 137 Potassium 3.5 Chloride 110 H Carbon Dioxide 18 L Anion Gap 9 BUN 15.2 Creatinine 0.7 Est GFR (CKD-EPI)AfAm 92.86 Est GFR (CKD-EPI)NonAf 80.12 Random Glucose 115 H Calcium 8.0 L Phosphorus 2.6 Magnesium 2.0 Total Bilirubin AST ALT Alkaline Phosphatase Creatine Kinase 5162 H Creatine Kinase Index 0.5 CK-MB (CK-2) 29.4 H Troponin I 0.64 H* Total Protein Albumin Triglycerides 75 Cholesterol 191 Total LDL Cholesterol 115 H HDL Cholesterol 65 H Lipase Vitamin B12 312 TSH Urine Color Urine Appearance Urine pH Ur Specific [place] Urine Protein Urine Glucose (UA) Urine Ketones Urine Blood Urine Nitrite Urine Bilirubin Urine Urobilinogen Ur Leukocyte Esterase Urine WBC (Auto) Urine RBC (Auto) Urine Casts (Auto) U Pathogenic Cast Auto U Epithel Cells (Auto) Urine Bacteria (Auto) Active Medications Generic Name Dose Route Start Last Admin Trade Name Freq PRN Reason Stop Dose Admin Aspirin 81 mg 05/08/19 10:00 05/08/19 10:00 Asa - PO 81 mg DAILY CHON Administration Cyanocobalamin 1,000 mcg 05/08/19 10:00 Vitamin B12 Injection - IM DAILY CHON Sodium Chloride 1,000 mls @ 50 mls/hr 05/08/19 13:15 Normal Saline - IV 05/09/19 13:07 ASDIR CHON ASSESSMENT/PLAN: Pt is an 84 y/o F with no known PMH (does not see a doctor regularly) who presents to ED [facility] after being found down at home. Pt was admitted for DDx syncope/CVA/arrhythmia. Nephrology was consulted for rhabdomyolysis. Rhabdo -no evidence of kidney injury at this time -CK > 5000 -will administer NS 1-2L/day -monitor lytes -monitor CK Dispo: We will continue to follow the patient. Thank you for this consultative opportunity. Visit type - Emergency Visit Emergency Visit: No - New Patient This patient is new to me today: No - Critical Care Critical Care patient: No ATTENDING PHYSICIAN STATEMENT I saw and evaluated the patient. I reviewed the resident's note and discussed the case with the resident. I agree with the resident's findings and plan as documented. SUBJECTIVE: OBJECTIVE: ASSESSMENT AND PLAN:
--- NOTE | 2019-05-08 14:32 | ECHO ---
Name: NEO NAIR Exam:Adult Echocardiogram Study Date: 05/08/2019 10:31 AM Age: 84 yrs Height: 68 in Weight: 140 lb BSA: 1.8 m2 MMode/2D Measurements & Calculations IVSd: 0.98 cm Ao root diam: 2.8 cm LVIDd: 3.5 cm LA dimension: 3.0 cm LVIDs: 2.7 cm LVPWd: 1.2 cm LVPWs: 1.4 cm EDV(Teich): 51.1 ml ESV(Teich): 28.0 ml LVOT diam: 2.1 cm LAV (MOD-bp): 55.0 ml RV S Santi: 14.0 cm/sec Doppler Measurements & Calculations MV E max santi: 74.0 cm/sec Ao V2 max: 123.8 cm/sec MV A max santi: 94.3 cm/sec Ao max P.2 mmHg MV E/A: 0.79 JON(V,D): 2.5 cm2 MV dec time: 0.13 sec LV V1 max P.1 mmHg TR max santi: 285.3 cm/sec LV V1 max: 87.4 cm/sec TR max P.8 mmHg PA V2 max: 80.4 cm/sec Med Peak E' Santi: 5.9 cm/sec PA max P.6 mmHg Med E/e': 12.5 Lat Peak E' Santi: 7.3 cm/sec Lat E/e': 10.1 Tech Comments technically difficlut. Procedure A two-dimensional transthoracic echocardiogram with color flow and Doppler was performed. Left Ventricle The left ventricular size, thickness and function are normal. The left ventricular ejection fraction is normal. The left ventricular wall motion is normal. Right Ventricle The right ventricle is not well visualized. A calcified moderator band is seen in the right ventricle . Atria Normal left and right atrial size and function. Mitral Valve There is mild mitral valve thickening. There is no mitral valve stenosis. There is trace to mild mitr al regurgitation. Tricuspid Valve The tricuspid valve is not well visualized. There is no tricuspid stenosis. There is moderate to whit re tricuspid regurgitation. Right ventricular systolic pressure is normal. Aortic Valve The aortic valve is not well visualized. There is mild aortic valve thickening. There is mild aortic sclerosis.;. The aortic valve is trileaflet. No hemodynamically significant valvular aortic stenosis. No aortic regurgitation is present. Pulmonic Valve The pulmonic valve is not well visualized. Great Vessels The aortic root is normal size. Pericardium/Pleura There is no pericardial effusion. Interpretation Summary The left ventricular size, thickness and function are normal The left ventricular ejection fraction is normal. The left ventricular wall motion is normal. There is trace to mild mitral regurgitation. Right ventricular systolic pressure is normal. The aortic valve is not well visualized. There is mild aortic sclerosis.; There is mild aortic valve thickening. The aortic valve is trileaflet. There is moderate to severe tricuspid regurgitation. MD Nehemias Lozoya 05/08/2019 02:31 PM
--- NOTE | 2019-05-08 14:47 | PN ---
Teaching Attending Note Name of Resident: Hakeem Rodriguez (Nephrology) ATTENDING PHYSICIAN STATEMENT I saw and evaluated the patient. I reviewed the resident's note and discussed the case with the resident. I agree with the resident's findings and plan as documented. SUBJECTIVE: 84 year old woman with no signifincat past medical history presented with fall at home and noted to have elevated CK levels indicating rhabdomyolysis. Also noted to have diarrhea at home. Seen resident H&P for remainder of HPI OBJECTIVE: Vital Signs Temperature 97.5 F L 05/08/19 12:58 Pulse Rate 65 05/08/19 12:58 Respiratory Rate 18 05/08/19 12:58 Blood Pressure 125/70 05/08/19 12:58 O2 Sat by Pulse Oximetry (%) 97 05/08/19 12:58 Intake & Output 05/05/19 05/06/19 05/07/19 05/08/19 23:59 23:59 23:59 23:59 Weight 63.503 kg NAD awake and alert neck supple no JVD RRR CTA no LE edema CBC, BMP 05/08/19 05:37 05/08/19 05:37 Current Medications Aspirin (Asa -) 81 mg PO DAILY [facility]ON Last Admin: 05/08/19 10:00 Dose: 81 mg Cyanocobalamin (Vitamin B12 Injection -) 1,000 mcg IM DAILY [facility]ON Sodium Chloride (Normal Saline -) 1,000 mls @ 50 mls/hr IV ASDIR CHON Stop: 05/09/19 13:07 Last Admin: 05/08/19 14:08 Dose: 50 mls/hr ASSESSMENT AND PLAN: 1. Rhabdomyolysis 2. Fall 3. Possible UTI 4. Non-anion gap metabolic acidosis 6. Diarrhea/Loose stools Continue isotonic fluids at ~2L daily. Trend CK Q12h Trend renal function and electrolytes daily f/u urine culture and give Abx as needed suspect that mild acidosis may be related to diarrhea Check urine anion gap Thank you Will follow
--- NOTE | 2019-05-08 15:47 | CON.CARD ---
Consult Consult Specialty:: Cardiology Referred by:: Dr. Damon Reason for Consultation:: elev trop - History of Present Illness Chief Complaint: fall History of Present Illness: 84 year old woman with no sig known pmh admitted with a fall at home and difficulty getting up. pt seen and examined today in nad. awake, alert, oriented. states that she remembers the episode very well. states that she was walking into the bathroom when she got a call and was trying to hurry up. she states she then fell forward onto the floor. states she felt too weak to get up at that point and remained on the floor until her daughter helped her. denies any chest pain, sob, palpitations. denies lightheadedness, dizziness, syncope, or near syncope. Found to have elevated CK c/w rhabdomyolysis and mild elev trop. currently states she feels well. - History Source History Provided By: Patient, Medical Record Limitations to Obtaining History: No Limitations - Alcohol/Substance Use Hx Alcohol Use: No History of Substance Use: reports: None - Smoking History Smoking history: Current every day smoker Have you smoked in the past 12 months: Yes Aproximately how many cigarettes per day: 30 - Social History ADL: Family Assistance History of Recent Travel: No Home Medications - Allergies Allergies/Adverse Reactions: Allergies Allergy/AdvReac Type Severity Reaction Status Date / Time Penicillins Allergy Mild Rash Verified 05/07/19 17:27 - Home Medications Home Medications: Ambulatory Orders NK [No Known Home Medication] 05/07/19 Family Medical History Family History: Denies Review of Systems - Review of Systems Constitutional: denies: No Symptoms, Chills, Diaphoresis, Fever, Lethargy, Loss of Appetite, Malaise, Night Sweats, Unintentional Wgt. Loss, Weakness, Other Eyes: denies: No Symptoms, Blind Spots, Blurred Vision, Double Vision, Eye Pain , Floaters, Photophobia, Recent Change in Vision, Other HENT: denies: No Symptoms, Difficult Swallowing, Ear Discharge, Ear Pain, Epistaxis, Gingival Bleeding, Hearing Loss, Mouth Swelling, Nasal Congestion, Ocular Prosthesis, Throat Pain, Toothache, Ringing in Ears, Other Neck: denies: No Symptoms, Decreased ROM, Lumps, Pain on Movement, Stiffness, Swollen Glands, Tenderness, Other Cardiovascular: denies: No Symptoms, Chest Pain, Edema, Palpitations, Shortness of Breath, Other Respiratory: denies: No Symptoms, Cough, Exercise Intolerance, Hemoptysis, Orthopnea, PND, Snoring, SOB, SOB on Exertion, Wheezing, Other Gastrointestinal: denies: No Symptoms, Abdominal Pain, Bloating, Constipation, Diarrhea, Dysphagia, Indigestion, Melena, Nausea, Rectal Bleeding, Vomiting, Vomiting Blood, Other Genitourinary: denies: No Symptoms, Burning, Discharge, Dysuria, Flank Pain, Frequency, Hematuria, Incontinence, Lesions, Menses, Pain, Testicular Mass, Testicular Pain, Testicular Swelling, Urgency, Vaginal Bleeding, Other Breasts: denies: No Symptoms Reported, See HPI, Breast Implants, Discharge from Nipple, Lumps, Pain, Skin Changes, Other Musculoskeletal: reports: Muscle Pain, Muscle Weakness. denies: No Symptoms, Back Pain, Crepitus, Decreased ROM, Extremity Pain, Joint Pain, Joint Swelling, Muscle Cramps, Other Integumentary: denies: No Symptoms, Blister, Bruising, Change in Color, Eczema, Erythema, Incision, Lesions, Lump, Pallor, Pruritis, Rash, Wound, Other Neurological: denies: No Symptoms, Change in LOC, Change in Speech, Confusion, Dizziness, Headache, Incoordination, Numbness, Parasthesia, Pre-Existing Deficit , Seizure, Syncope, Tremors, Unsteady Gait, Weakness, Other Endocrine: denies: No Symptoms, Excessive Sweating, Flushing, Increased Hunger, Increased Thirst, Intolerance to Cold, Intolerance to Heat, Unexplained Weight Gain, Unexplained Weight Loss, Other Hematology/Lymphatic: denies: No Symptoms, Easily Bruised, Excessive Bleeding, Swollen Glands, Other Psychiatric: denies: No Symptoms, Altered Sleep Pattern, Anxiety, Depression, Hallucinations, Panic, Paranoia, Suicidal, Other - Risk Factors Known Risk Factors: Yes: Age Vital Signs: Vital Signs Temperature 97.5 F L 05/08/19 12:58 Pulse Rate 65 05/08/19 12:58 Respiratory Rate 18 05/08/19 12:58 Blood Pressure 125/70 05/08/19 12:58 O2 Sat by Pulse Oximetry (%) 97 05/08/19 12:58 Constitutional: Yes: No Distress, Calm Eyes: Yes: Conjunctiva Clear, EOM Intact, PERRL HENT: Yes: Atraumatic, Normocephalic Neck: Yes: Supple, Trachea Midline Respiratory: Yes: Regular, CTA Bilaterally. No: Rales, Rhonchi, Wheezes Gastrointestinal: Yes: Normal Bowel Sounds, Soft. No: Distention, Tenderness Cardiovascular: Yes: Regular Rate and Rhythm. No: Bradycardia, Tachycardia, Pulse Irregular, Gallop, Rub, Varicosities JVD: No Carotid Bruit: No PMI: Non-Displaced Heart Sounds: Yes: S1, S2. No: Split S2, S3, S4, Clicks, Gallop, Rub, Bruit Murmur: Yes: Systolic Murmur, Grade 1 Extremities: Yes: WNL Edema: No Peripheral Pulses WNL: Yes Peripheral Pulses: 2+ Left Doralis Pedis, 2+ Right Dorsalis Pedis Neurological: Yes: Alert, Oriented Psychiatric: Yes: Alert, Oriented - Other Data Labs, Other Data: CBC, BMP 05/08/19 05:37 05/08/19 05:37 INR, PTT INR 1.00 (0.83-1.09) 05/07/19 18:00 Troponin, BNP 05/07/19 05/07/19 05/08/19 18:00 21:40 05:37 Troponin I 0.41 H 0.61 H* 0.64 H* Troponin, BNP 05/07/19 05/07/19 05/08/19 18:00 21:40 05:37 Troponin I 0.41 H 0.61 H* 0.64 H* nsr with apcs and pvcs, prolonged qtc Echo: Report Reviewed Imaging - Results Chest X-ray: Report Reviewed, Image Reviewed EKG: Report Reviewed, Image Reviewed Other: Report Reviewed, Image Reviewed Assessment/Plan 84 year old woman with no sig known pmh admitted with a fall at home and difficulty getting up. pt seen and examined today in nad. awake, alert, oriented. states that she remembers the episode very well. states that she was walking into the bathroom when she got a call and was trying to hurry up. she states she then fell forward onto the floor. states she felt too weak to get up at that point and remained on the floor until her daughter helped her. denies any chest pain, sob, palpitations. denies lightheadedness, dizziness, syncope, or near syncope. Found to have elevated CK c/w rhabdomyolysis and mild elev trop. currently states she feels well. Fall-presumed mechanical, pt denies syncope or near syncope although her report of the event has been questioned -unlikely arrhythmia induced -echo showed normal LVEF, mod TR, no no other sig valvular abnl -she was reported on the ground for approx 3 hours too weak to stand up on her own -can monitor tele 24 hours and if no sig arrhythmias tele can be dcd Elev trop -unlikely ACS -no concerning symptoms -no ischemia on ekg -likely elevated secondary to rhabdo as well -echo showed normal LVEF no evidence of PR -cont ASA -no statin in setting of rhabdo -cont tele x 24 hours as above
--- NOTE | 2019-05-08 19:01 | CON.NEURO ---
Consult Consult Specialty:: neuro Reason for Consultation:: fall - History of Present Illness Chief Complaint: fall History of Present Illness: 84 year old woman with no sig known pmh admitted with a fall at home and difficulty getting up. pt seen and examined today in nad. awake, alert, oriented. states that she remembers the episode very well. states that she was walking into the bathroom when she got a call and was trying to hurry up. she states she then fell forward onto the floor. states she felt too weak to get up at that point and remained on the floor until her daughter helped her. Pt was seen and examine at the bedside; hx as above ; she has tripped over and fall on the fl and hit her chin on the fl , but denies LOC ; felt weak ; she denies hx of stroke or seizure in the past ; no headache , visual symp, dizziness, etc. - History Source History Provided By: Patient, Medical Record Limitations to Obtaining History: No Limitations - Past Medical History ...: No - Alcohol/Substance Use Hx Alcohol Use: No History of Substance Use: reports: None - Smoking History Smoking history: Current every day smoker Have you smoked in the past 12 months: Yes Aproximately how many cigarettes per day: 30 - Social History ADL: Family Assistance History of Recent Travel: No Home Medications - Allergies Allergies/Adverse Reactions: Allergies Allergy/AdvReac Type Severity Reaction Status Date / Time Penicillins Allergy Mild Rash Verified 05/07/19 17:27 - Home Medications Home Medications: Ambulatory Orders NK [No Known Home Medication] 05/07/19 Review of Systems - Review of Systems Constitutional: reports: No Symptoms (all 14 organs reviewed and -ve beside HP.) Physical Exam-Neuro Vital Signs: Vital Signs Temperature 97.6 F 05/08/19 18:00 Pulse Rate 66 05/08/19 18:00 Respiratory Rate 20 05/08/19 18:00 Blood Pressure 145/93 05/08/19 18:00 O2 Sat by Pulse Oximetry (%) 93 L 05/08/19 16:13 Constitutional: Yes: Well Nourished, No Distress Neck: Yes: Supple Cardiovascular: Yes: Regular Rate and Rhythm Respiratory: Yes: CTA Bilaterally Musculoskeletal: Yes: WNL Edema: No Psychiatric: Yes: WNL Labs: CBC, BMP 05/08/19 05:37 05/08/19 05:37 INR, PTT INR 1.00 (0.83-1.09) 05/07/19 18:00 - Neuro Exam Level Of Consciousness: Yes: Alert, Oriented to Person, Oriented to Place, Oriented to Time Eyes: Yes: PERRLA Speech: WNL Cranial Nerves II-XII Intact: Yes Gag: Present DTR's: 1+ Left Bicep, 1+ Right Bicep, 1+ Left Tricep, 1+ Right Tricep, 1+ Left Brachioradialis, 1+ Right Brachioradialis, 1+ Left Achilles, 1+ Right Achilles Babinski: Present Response to light touch: Normal Response to pain prick: Normal Coordination: Normal: Finger to Nose, Heel to Lee Motor Strength: 5/5: Left Arm, Right Arm, Left Leg, Right Leg Gait: Deferred Imaging - Results Cat Scan: Report Reviewed (No acute finding), Image Reviewed MRI: Pending Problem List - Problems (1) Fall Code(s): W19.XXXA - UNSPECIFIED FALL, INITIAL ENCOUNTER (2) Rhabdomyolysis Code(s): M62.82 - RHABDOMYOLYSIS Assessment/Plan 84 y/o F, w no significant PMH, ambulatory at home independently p/w mechanical fall; denies any LOC , no seizure activities; no acute pathology on CAT scan head and neuro exam ;mechanical fall and rhabdo post fall ; doubt seizure; will obtain MRI brain wo; IVF , fall precautions; PT ; advised use safety grab bar in the bathroom and bench shower; night bulb at night . Health maintenanceper primary team. ADITYA Martin MD
--- NOTE | 2019-05-08 20:15 | RAPID ---
Physical Examination Vital Signs: Vital Signs Temperature 97.6 F 05/08/19 18:00 Pulse Rate 66 05/08/19 18:00 Respiratory Rate 20 05/08/19 18:00 Blood Pressure 145/93 05/08/19 18:00 O2 Sat by Pulse Oximetry (%) 93 L 05/08/19 16:13 Labs: CBC, BMP 05/08/19 05:37 05/08/19 05:37 Rapid Response - Rapid Response Assessment: Rapid response called overhead to 4S at 19:58. RR team arrived to find patient on ground. Pt was trying to get out of bed to tell nurse to turn off her lights and fell onto the ground. Denies hitting her head or loss of consciousness. Is not complaining of any pain s/p fall. VS: BP: 151/78 HR: 116 RR: 18 PE: Pt is alert and oriented x3. No confusion, remembers events of fall. CN II-XII intact Full sensation in upper and lower extremities Upper ext strength: 5/5 pushing, 2/5 pulling, 5/5 hand balloon tester Lower ext strength: 4/5 throughout Heart: Tachycardic, normal S1 and S2, no murmurs Lungs: CTAB Abd: soft, nontender No point tenderness >> F/u MRI scan.
[2019-05-09 07:25] LABS: BASO % 0.2 % (0-2.0); EOS % 0.1 % (0-4.5); HEMATOCRIT 39.4 % (32.4-45.2); HEMOGLOBIN 13.1 GM/dL (10.7-15.3); LYMPH % 7.5 % (8-40); MCH 28.8 pg (25.7-33.7); MCHC 33.3 g/dl (32.0-36.0); MEAN CELL VOLUME 86.5 fl (80-96); MEAN PLT VOLUME 8.5 fl (7.5-11.1); MONO % 11.8 % (3.8-10.2); NEUT % 80.4 % (42.8-82.8); PLATELET COUNT 178 K/MM3 (134-434); RBC 4.56 M/mm3 (3.60-5.2); RDW 14.3 % (11.6-15.6); WHITE BLOOD COUNT 6.4 K/mm3 (4.0-10.0)
--- NOTE | 2019-05-09 08:00 | PN ---
Progress Note, Physician - Current Medication List Current Medications: Active Medications Aspirin (Asa -) 81 mg PO DAILY [facility] Last Admin: 05/08/19 10:00 Dose: 81 mg Cyanocobalamin (Vitamin B12 Injection -) 1,000 mcg IM DAILY [facility] Sodium Chloride (Normal Saline -) 1,000 mls @ 50 mls/hr IV ASDIR [facility] Stop: 05/09/19 13:07 Last Admin: 05/08/19 14:08 Dose: 50 mls/hr - Objective Vital Signs: Vital Signs Temperature 98.2 F 05/09/19 06:26 Pulse Rate 69 05/09/19 06:26 Respiratory Rate 16 05/09/19 06:26 Blood Pressure 155/89 05/09/19 06:26 O2 Sat by Pulse Oximetry (%) 95 05/08/19 21:00 Cardiovascular: Yes: Pulse Irregular, S1, S2 Respiratory: Yes: Diminished, On Nasal O2 Gastrointestinal: Yes: Normal Bowel Sounds, Soft Neurological: Yes: Alert, Unsteady Gait, Weakness Labs: CBC, BMP 05/09/19 06:15 INR, PTT INR 1.00 (0.83-1.09) 05/07/19 18:00 Problem List - Problems (1) Syncope Assessment/Plan: Continue cardiac monitoring Serial Enzymes--trop high EKG Head CT nad--mri Echo Cardiology consult Monitor CBC, BMP Fall Precautions Code(s): R55 - SYNCOPE AND COLLAPSE Qualifiers: Syncope type: unspecified Qualified Code(s): R55 - Syncope and collapse (2) Elevated troponin Assessment/Plan: Rising r/o AR--EKG Cardiac monitoring Cardiology follow up Trend CE Echo Serial EKGs Code(s): R79.89 - OTHER SPECIFIED ABNORMAL FINDINGS OF BLOOD CHEMISTRY (3) Vitamin B 12 deficiency Code(s): E53.8 - DEFICIENCY OF OTHER SPECIFIED B GROUP VITAMINS (4) Fall Assessment/Plan: had @nd fall Head CT- reviewed C-Spine CT- no fx--djd Code(s): W19.XXXA - UNSPECIFIED FALL, INITIAL ENCOUNTER (5) Diarrhea Assessment/Plan: ivf cultures monitor Code(s): R19.7 - DIARRHEA, UNSPECIFIED (6) Rhabdomyolysis Assessment/Plan: ivf monitor renal consult Code(s): M62.82 - RHABDOMYOLYSIS (7) Arrhythmia Assessment/Plan: maybe pvc/apc monitor ekg Code(s): I49.9 - CARDIAC ARRHYTHMIA, UNSPECIFIED
[2019-05-09 08:11] LABS: ALBUMIN 2.7 g/dl (3.4-5.0); BILIRUBIN,TOTAL 0.6 mg/dL (0.2-1); BLOOD UREA NITROGEN 23.1 mg/dL (7-18); CALCIUM 8.7 mg/dL (8.5-10.1); CREATININE 1.2 mg/dL (0.55-1.3); MAGNESIUM 2.2 mg/dL (1.8-2.4); PHOSPHOROUS 2.8 mg/dL (2.5-4.9); POTASSIUM 3.8 mmol/L (3.5-5.1); TOT PROT 5.9 g/dl (6.4-8.2)
[2019-05-09] MEDS: ASPIRIN 81 MG CHEWABLE TABLETS PO SCH (09:04)
[2019-05-09] MEDS: CYANOCOBALAMIN (VITAMIN B-12) 1000 MCG/1 ML VIAL IM SCH ×2 (09:04→09:05)
[2019-05-09] MEDS ORDERED: ATORVASTATIN CA 20 MG TABLET (FP) PO ONE (09:45)
[2019-05-09] MEDS: metoPROLOL SUCCINATE 25 MG TAB.SR.24H (FP) PO SCH ×2 (11:11→22:08)
--- NOTE | 2019-05-09 11:48 | EKG ---
Test Reason : Blood Pressure : / mmHG Vent. Rate : 074 BPM Atrial Rate : 074 BPM P-R Int : 162 ms QRS Dur : 086 ms QT Int : 446 ms P-R-T Axes : 068 -13 024 degrees QTc Int : 495 ms SINUS RHYTHM WITH PREMATURE ATRIAL COMPLEXES CANNOT RULE OUT ANTERIOR INFARCT , AGE UNDETERMINED ABNORMAL ECG WHEN COMPARED WITH ECG OF 08-MAY-2019 09:17, PREMATURE VENTRICULAR COMPLEXES ARE NO LONGER PRESENT Confirmed by JANINA RIGGS, CHIVO ([id number]) on 05/09/2019 11:48:18 AM Referred By: Confirmed By:CHIVO ROA MD
[2019-05-09] MEDS ORDERED: SODIUM CHLORIDE 1,000 ML IV SCH (13:30)
[2019-05-09] MEDS ORDERED: LACTATED RINGERS SOLUTION 1,000 ML/1,000 ML INFUS.BAG IV SCH (15:15)
--- NOTE | 2019-05-09 15:24 | PN ---
Progress Note, Physician History of Present Illness: seen and examined today. pt awake and alert. had a mechanical fall last night with no LOC reported. no arrhythmias on tele. - Current Medication List Current Medications: Active Medications Aspirin (Asa -) 81 mg PO DAILY [facility] Last Admin: 05/09/19 09:04 Dose: 81 mg Atorvastatin Calcium (Lipitor -) 20 mg PO HS [facility] Cyanocobalamin (Vitamin B12 Injection -) 1,000 mcg IM DAILY [facility] Last Admin: 05/09/19 09:05 Dose: Not Given Sodium Chloride (Normal Saline -) 1,000 mls @ 83 mls/hr IV ASDIR CHON Lactated Ringer's (Lactated Ringers Solution) 1,000 ml in 1,000 mls @ 100 mls/ hr IV ASDIR [facility]ON Metoprolol Succinate (Toprol Xl -) 25 mg PO BID [facility] Last Admin: 05/09/19 11:11 Dose: 25 mg - Objective Vital Signs: Vital Signs Temperature 97.2 F L 05/09/19 14:00 Pulse Rate 83 05/09/19 14:00 Respiratory Rate 18 05/09/19 14:00 Blood Pressure 142/78 05/09/19 14:00 O2 Sat by Pulse Oximetry (%) 95 05/09/19 10:00 Constitutional: Yes: No Distress Eyes: Yes: Conjunctiva Clear HENT: Yes: Other (chin abrasion) Cardiovascular: Yes: Regular Rate and Rhythm, S1, S2. No: Bradycardia, Tachycardia, Pulse Irregular, Bruit, JVD, Gallop, Murmur, Rub, S3, S4, Varicosities Respiratory: Yes: Regular. No: Rales, Rhonchi, SOB, Wheezes Gastrointestinal: Yes: Normal Bowel Sounds, Tenderness Musculoskeletal: Yes: WNL Extremities: Yes: WNL Edema: No Peripheral Pulses WNL: Yes Peripheral Pulses: Left Doralis Pedis: 2+, Right Dorsalis Pedis: 2+ Neurological: Yes: Alert, Oriented Psychiatric: Yes: Alert, Oriented Labs: CBC, BMP 05/09/19 06:15 05/09/19 06:15 INR, PTT INR 1.00 (0.83-1.09) 05/07/19 18:00 - ....Imaging Chest X-ray: Report Reviewed, Image Reviewed EKG: Report Reviewed, Image Reviewed Other: Report Reviewed, Image Reviewed (tele-nsr, apcs, brief psvt) Assessment/Plan 84 year old woman with no sig known pmh admitted with a fall at home and difficulty getting up. states that she remembers the episode very well. states that she was walking into the bathroom when she got a call and was trying to hurry up. she states she then fell forward onto the floor. states she felt too weak to get up at that point and remained on the floor until her daughter helped her. denies any chest pain, sob, palpitations. denies lightheadedness, dizziness, syncope, or near syncope. Found to have elevated CK c/w rhabdomyolysis and mild elev trop. Fall-likely mechanical, pt denies syncope or near syncope although her report of the event has been questioned -recurrent fall last night that was witnessed as mechanical -unlikely arrhythmia induced -echo showed normal LVEF, mod TR, no no other sig valvular abnl -no arrhythmias on tele that would cause syncope Elev trop-slight uptrend this am with CK 5000s -unlikely ACS -no symptoms of chest pain or sob -no ischemia on ekg -likely elevated secondary to rhabdo as well -echo showed normal LVEF no evidence of DE -cont ASA -no statin in setting of rhabdo -no ischemic arrhythmias on tele -cont IVF hydration for rhabdo Arrhythmia -sinus with frequent apcs and short psvt on tele -Toprol was started -will cont to monitor tele tonight.
--- NOTE | 2019-05-09 17:16 | PN ---
Progress Note (short form) - Note Progress Note: Renal follow up for Rhabdomyolysis Seen and examined at the bedside awake and alert s/p fall earlier today no chest pain or shortness of breath making urine no muscle pain no flank pain Vital Signs Temperature 99.6 F 05/09/19 14:26 Pulse Rate 83 05/09/19 14:26 Respiratory Rate 18 05/09/19 14:26 Blood Pressure 142/78 05/09/19 14:26 O2 Sat by Pulse Oximetry (%) 95 05/09/19 10:00 Intake & Output 05/06/19 05/07/19 05/08/19 05/09/19 23:59 23:59 23:59 23:59 Intake Total 850 1533 Balance 850 1533 Weight 63.503 kg 63.503 kg NAD awake and alert neck supple no JVD RRR Fine rales at lung bases no LE edema CBC, BMP 05/09/19 06:15 05/09/19 06:15 Current Medications Aspirin (Asa -) 81 mg PO DAILY [facility] Last Admin: 05/09/19 09:04 Dose: 81 mg Atorvastatin Calcium (Lipitor -) 20 mg PO HS [facility] Cyanocobalamin (Vitamin B12 Injection -) 1,000 mcg IM DAILY [facility] Last Admin: 05/09/19 09:05 Dose: Not Given Sodium Chloride (Normal Saline -) 1,000 mls @ 83 mls/hr IV ASDIR CHON Lactated Ringer's (Lactated Ringers Solution) 1,000 ml in 1,000 mls @ 100 mls/ hr IV ASDIR CHON Metoprolol Succinate (Toprol Xl -) 25 mg PO BID [facility] Last Admin: 05/09/19 11:11 Dose: 25 mg ASSESSMENT AND PLAN: 1. Rhabdomyolysis 2. Fall 3. Possible UTI 4. Non-anion gap metabolic acidosis 6. Diarrhea/Loose stools Cr noted to have risen to 1.2 today from 0.7 continue isotonic fluids at 83 cc per hour monitor for any change in respiratory status Trend CK Daily Trend renal function and electrolytes daily f/u urine culture and give Abx as needed Trend serum bicab, no emergent indication for bicarbonate Thank you Will follow
--- NOTE | 2019-05-09 17:33 | PN ---
Progress Note (short form) - Note Progress Note: HPI : 84 year old woman with no sig known pmh admitted with a fall at home and difficulty getting up. pt seen and examined today in nad. awake, alert, oriented. states that she remembers the episode very well. states that she was walking into the bathroom when she got a call and was trying to hurry up. she states she then fell forward onto the floor. states she felt too weak to get up at that point and remained on the floor until her daughter helped her. Pt was seen and examine at the bedside; hx as above ; she has tripped over and fall on the fl and hit her chin on the fl , but denies LOC ; felt weak ; she denies hx of stroke or seizure in the past ; no headache , visual symp, dizziness, etc. 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 Correlate clinically to determine further evaluation and follow- up. - History Source History Provided By: Patient, Medical Record Limitations to Obtaining History: No Limitations - Past Medical History ...: No - Alcohol/Substance Use Hx Alcohol Use: No History of Substance Use: reports: None - Smoking History Smoking history: Current every day smoker Have you smoked in the past 12 months: Yes Aproximately how many cigarettes per day: 30 - Social History ADL: Family Assistance History of Recent Travel: No Home Medications - Allergies Allergies/Adverse Reactions: Allergies Allergy/AdvReac Type Severity Reaction Status Date / Time Penicillins Allergy Mild Rash Verified 05/07/19 17:27 - Home Medications Home Medications: Ambulatory Orders NK [No Known Home Medication] 05/07/19 Review of Systems - Review of Systems Constitutional: reports: No Symptoms (all 14 organs reviewed and -ve beside HP.) Physical Exam-Neuro Vital Signs: Vital Signs Temperature 99.6 F 05/09/19 14:26 Pulse Rate 83 05/09/19 14:26 Respiratory Rate 18 05/09/19 14:26 Blood Pressure 142/78 05/09/19 14:26 O2 Sat by Pulse Oximetry (%) 95 05/09/19 10:00 Constitutional: Yes: Well Nourished, No Distress Neck: Yes: Supple Cardiovascular: Yes: Regular Rate and Rhythm Respiratory: Yes: CTA Bilaterally Musculoskeletal: Yes: WNL Edema: No Psychiatric: Yes: WNL Labs: CBCD WBC 6.4 K/mm3 (4.0-10.0) 05/09/19 06:15 RBC 4.56 M/mm3 (3.60-5.2) 05/09/19 06:15 Hgb 13.1 GM/dL (10.7-15.3) 05/09/19 06:15 Hct 39.4 % (32.4-45.2) 05/09/19 06:15 MCV 86.5 fl (80-96) 05/09/19 06:15 MCHC 33.3 g/dl (32.0-36.0) 05/09/19 06:15 RDW 14.3 % (11.6-15.6) 05/09/19 06:15 Plt Count 178 K/MM3 (134-434) 05/09/19 06:15 MPV 8.5 fl (7.5-11.1) 05/09/19 06:15 CMP Sodium 141 mmol/L (136-145) 05/09/19 06:15 Potassium 3.8 mmol/L (3.5-5.1) 05/09/19 06:15 Chloride 113 mmol/L (98-107) H 05/09/19 06:15 Carbon Dioxide 18 mmol/L (21-32) L 05/09/19 06:15 Anion Gap 9 MMOL/L (8-16) 05/09/19 06:15 BUN 23.1 mg/dL (7-18) H 05/09/19 06:15 Creatinine 1.2 mg/dL (0.55-1.3) 05/09/19 06:15 Calcium 8.7 mg/dL (8.5-10.1) 05/09/19 06:15 Total Bilirubin 0.6 mg/dL (0.2-1) 05/09/19 06:15 AST 153 U/L (15-37) H 05/09/19 06:15 ALT 62 U/L (13-61) H 05/09/19 06:15 Alkaline Phosphatase 140 U/L (45-117) H 05/09/19 06:15 Total Protein 5.9 g/dl (6.4-8.2) L 05/09/19 06:15 Albumin 2.7 g/dl (3.4-5.0) L 05/09/19 06:15 - Neuro Exam Level Of Consciousness: Yes: Alert, Oriented to Person, Oriented to Place, Oriented to Time Eyes: Yes: PERRLA Speech: WNL Cranial Nerves II-XII Intact: Yes Gag: Present DTR's: 1+ Left Bicep, 1+ Right Bicep, 1+ Left Tricep, 1+ Right Tricep, 1+ Left Brachioradialis, 1+ Right Brachioradialis, 1+ Left Achilles, 1+ Right Achilles Babinski: Present Response to light touch: Normal Response to pain prick: Normal Coordination: Normal: Finger to Nose, Heel to Lee Motor Strength: 5/5: Left Arm, Right Arm, Left Leg, Right Leg Gait: Deferred Imaging - Results Cat Scan: Report Reviewed (No acute finding), Image Reviewed MRI: Pending Problem List - Problems (1) Fall Code(s): W19.XXXA - UNSPECIFIED FALL, INITIAL ENCOUNTER (2) Rhabdomyolysis Code(s): M62.82 - RHABDOMYOLYSIS Assessment/Plan 84 y/o F, w no significant PMH, ambulatory at home independently p/w mechanical fall; denies any LOC , no seizure activities; no acute pathology on CAT scan head and neuro exam ;mechanical fall and rhabdo post fall ; no evidence of seizure/stroke; MRI BRAIN --no acute pathology/white matter changes/ +smoker Rhabdo fluids, FU CPK, will DC statin in the interim , no evidence of clinical myopathy call back PRN thanks DR JONES
[2019-05-09] MEDS: LACTATED RINGERS SOLUTION 1,000 ML/1,000 ML INFUS.BAG IV SCH (22:07)
[2019-05-10] MEDS: LACTATED RINGERS SOLUTION 1,000 ML/1,000 ML INFUS.BAG IV SCH (06:11)
[2019-05-10 08:09] LABS: ALBUMIN 2.4 g/dl (3.4-5.0); BILIRUBIN,TOTAL 0.7 mg/dL (0.2-1); BLOOD UREA NITROGEN 20.1 mg/dL (7-18); CALCIUM 8.5 mg/dL (8.5-10.1); CREATININE 0.8 mg/dL (0.55-1.3); MAGNESIUM 2.4 mg/dL (1.8-2.4); PHOSPHOROUS 2.5 mg/dL (2.5-4.9); POTASSIUM 3.7 mmol/L (3.5-5.1); TOT PROT 5.4 g/dl (6.4-8.2)
--- NOTE | 2019-05-10 09:35 | PN ---
Progress Note, Physician - Current Medication List Current Medications: Active Medications Aspirin (Asa -) 81 mg PO DAILY [facility] Last Admin: 05/09/19 09:04 Dose: 81 mg Cyanocobalamin (Vitamin B12 Injection -) 1,000 mcg IM DAILY [facility] Last Admin: 05/09/19 09:05 Dose: Not Given Lactated Ringer's (Lactated Ringers Solution) 1,000 ml in 1,000 mls @ 83 mls/ hr IV ASDIR [facility] Last Admin: 05/10/19 06:11 Dose: 83 mls/hr Metoprolol Succinate (Toprol Xl -) 25 mg PO BID [facility] Last Admin: 05/09/19 22:08 Dose: 25 mg - Objective Vital Signs: Vital Signs Temperature 98.8 F 05/10/19 08:40 Pulse Rate 79 05/10/19 08:40 Respiratory Rate 18 05/10/19 08:40 Blood Pressure 144/75 05/10/19 08:40 O2 Sat by Pulse Oximetry (%) 94 L 05/09/19 23:00 Cardiovascular: Yes: S1, S2 Respiratory: Yes: Regular, CTA Bilaterally Gastrointestinal: Yes: Normal Bowel Sounds, Soft Neurological: Yes: Alert, Oriented, Confusion (--intermittent) Labs: CBC, BMP 05/09/19 06:15 05/10/19 06:00 INR, PTT INR 1.00 (0.83-1.09) 05/07/19 18:00 Problem List - Problems (1) Syncope Assessment/Plan: Continue cardiac monitoring Serial Enzymes--trop high--trending down EKG Head CT nad--mri--no cva Echo Cardiology consult Monitor CBC, BMP Fall Precautions Code(s): R55 - SYNCOPE AND COLLAPSE Qualifiers: Syncope type: unspecified Qualified Code(s): R55 - Syncope and collapse (2) Elevated troponin Assessment/Plan: Rising r/o CT--EKG Cardiac monitoring Cardiology follow up Trend CE Echo Serial EKGs Code(s): R79.89 - OTHER SPECIFIED ABNORMAL FINDINGS OF BLOOD CHEMISTRY (3) Vitamin B 12 deficiency Assessment/Plan: b12 given Code(s): E53.8 - DEFICIENCY OF OTHER SPECIFIED B GROUP VITAMINS (4) Fall Assessment/Plan: had @nd fall Head CT- reviewed C-Spine CT- no fx--djd Code(s): W19.XXXA - UNSPECIFIED FALL, INITIAL ENCOUNTER (5) Diarrhea Assessment/Plan: resolved cultures monitor Code(s): R19.7 - DIARRHEA, UNSPECIFIED (6) Rhabdomyolysis Assessment/Plan: ivf improving monitor renal consult Code(s): M62.82 - RHABDOMYOLYSIS (7) Arrhythmia Assessment/Plan: pvc/apc monitor ekg Code(s): I49.9 - CARDIAC ARRHYTHMIA, UNSPECIFIED Assessment/Plan dc planning--snf
[2019-05-10] MEDS: metoPROLOL SUCCINATE 25 MG TAB.SR.24H (FP) PO SCH ×2 (10:08→22:27)
[2019-05-10] MEDS: CYANOCOBALAMIN (VITAMIN B-12) 1000 MCG/1 ML VIAL IM SCH (10:08)
[2019-05-10] MEDS: ASPIRIN 81 MG CHEWABLE TABLETS PO SCH (10:08)
[2019-05-10] MEDS ORDERED: LACTATED RINGERS SOLUTION 1,000 ML/1,000 ML INFUS.BAG IV SCH (13:30)
--- NOTE | 2019-05-10 13:32 | PN ---
Progress Note (short form) - Note Progress Note: Renal follow up for Rhabdomyolysis Seen and examined at the bedside awake and alert no acute complaints tolerating oral diet making urine Vital Signs Temperature 98.8 F 05/10/19 08:40 Pulse Rate 79 05/10/19 08:40 Respiratory Rate 18 05/10/19 08:40 Blood Pressure 144/75 05/10/19 08:40 O2 Sat by Pulse Oximetry (%) 95 05/10/19 09:00 Intake & Output 05/07/19 05/08/19 05/09/19 05/10/19 23:59 23:59 23:59 23:59 Intake Total 850 1683 980 Output Total 1999 1300 Balance 850 317 -320 Weight 63.503 kg 63.503 kg NAD awake and alert neck supple no JVD RRR Fine rales at lung bases no LE edema CBC, BMP 05/09/19 06:15 05/10/19 06:00 Current Medications Aspirin (Asa -) 81 mg PO DAILY [facility] Last Admin: 05/10/19 10:08 Dose: 81 mg Cyanocobalamin (Vitamin B12 Injection -) 1,000 mcg IM DAILY [facility] Last Admin: 05/10/19 10:08 Dose: 1,000 mcg Lactated Ringer's (Lactated Ringers Solution) 1,000 ml in 1,000 mls @ 70 mls/ hr IV ASDIR [facility] Stop: 05/10/19 17:42 Metoprolol Succinate (Toprol Xl -) 25 mg PO BID [facility] Last Admin: 05/10/19 10:08 Dose: 25 mg ASSESSMENT AND PLAN: 1. Rhabdomyolysis 2. Fall 3. Possible UTI 4. Non-anion gap metabolic acidosis 6. Diarrhea/Loose stools Renal function is improved Can continue gentle IVF x 24 hours oral intake as tolerated monitor for any change in respiratory status CKs improved, < 5000 now Will follow up as needed. Please call with any questions or concerns
--- NOTE | 2019-05-10 15:12 | CONS ---
PHYSICAL MEDICINE AND REHABILITATION CONSULTATION DATE OF CONSULTATION: 05/10/2019 REFERRING PHYSICIAN: Aretha Damon MD HISTORY OF PRESENT ILLNESS: Patient is an 84-year-old, woman without significant past medical history who was admitted to [facility] after a fall. Patient evidently does not seek medical help on a regular basis and has no history. She was ambulating, trying to get to the bathroom quickly, when she slipped, and fell. Patient states she suffered no injury, but was unable to stand and ambulate, and was brought to [facility]. On admission, WBC is 6.1, hemoglobin 14.2, platelet count 200; sodium 137, potassium 3.5, BUN 15, creatinine 0.7; she had an elevated troponin of 0.64, which increased to 1.81 on repeat. Her vitamin B12 was low and she was started on B12 injections, IV fluid, for possible rhabdomyolysis. CT of the head showed no acute intracranial pathology. MRI of the brain on May 08 showed moderate atrophy, [id number], chronic microvascular ischemic changes, no acute pathology. Patient was evaluated by Physical Therapy, able to stand and get out of bed to a chair, but apparently she also had a fall while in the hospital striking her chin on the floor, and no loss of consciousness. Repeat blood work on May 09: WBC is 6.4, hemoglobin 13.1, platelet count 178; sodium 141, potassium 3.7, chloride 112, CO2 of 22, BUN 20.1, creatinine 0.8. Patient currently feels well, except for generalized weakness. No complaints of any joint arthralgias. REVIEW OF PAST MEDICAL AND SURGICAL HISTORY: As above; essentially negative. SOCIAL HISTORY: She lives in an apartment with 2 flights of steps to get in. She has a owijmbuc-of-enc who lives upstairs. FUNCTIONAL STATUS: Premorbidly, she states she was ambulatory without assistive device and not limited. Current function: Unable to stand and ambulate, when evaluated by therapy. REVIEW OF SYSTEMS: No headache. No lightheadedness, dizziness. No blurry vision or double vision. No nausea, vomiting, difficulty swallowing, difficulty chewing. No chest pain or shortness of breath. No dyspnea on exertion, cough or abdominal discomfort. She is urinating well, but has not moved her bowels since admission. She has no complaints of numbness, tingling in the upper or lower limbs. No isolated or focal weakness. No joint arthralgias. No neck or back pain. No skin rash, but she does have some abrasions from the fall including her chin and knees. PHYSICAL EXAMINATION: General: On examination, elderly woman who is sitting out of bed in a chair. She is awake, alert, cooperative, and in no acute distress. HEENT: She is normocephalic. She does again have abrasion on the chin from trauma, but no other areas of ecchymosis. No facial weakness. Her extraocular muscles appear intact. Neck: Supple. Extremities: Without any pitting edema or calf tenderness. Neuromuscular: Awake. Alert. Oriented x3. Cranial nerves 2 through 12 grossly intact. Good strength and range throughout her upper limbs. She has mild proximal weakness in her hip girdle, especially in her hip extensors, hip abductors at 3+ to 4- out of 5. Good knee flexion, extension, good dorsiflexion, plantarflexion, as well as hip flexion; all at least 4+ to 5- out of 5. Normal sensation to light touch, pinprick. Symmetric reflexes. Unable to stand and ambulate her, as she is not able to at this time. OVERALL IMPRESSION: 1. Deficits in mobility, activities of daily living, mainly due to deconditioning. 2. Status post multiple falls. 3. Borderline B12 level. Currently ongoing repletion. 4. Abrasion to the chin and knees from fall. 5. Elevated risk for DVT, due to immobility. 6. Increased troponin level; uncertain significance. 7. Increased risk for decubitus ulcerations, due to immobility. 8. Constipation. PLAN/SUGGESTIONS: 1. Continue physical therapy for mobilization, transfers, gait training, strengthening, and reconditioning. 2. Continue out of bed to chair. 3. DVT prophylaxis, until more mobile. 4. Fluid hydration. 5. Bowel regimen and laxative as needed. 6. Case Management for evaluation for short-term rehab in a [place] [facility] facility, which would be the recommended disposition. Thank you very much for this referral. NOELLE PERES M.D. [id number]
--- NOTE | 2019-05-10 15:49 | PN ---
Progress Note, Physician History of Present Illness: seen and examined today in [facility]. no overnight events. no new complaints. - Current Medication List Current Medications: Active Medications Aspirin (Asa -) 81 mg PO DAILY [facility] Last Admin: 05/10/19 10:08 Dose: 81 mg Cyanocobalamin (Vitamin B12 Injection -) 1,000 mcg IM DAILY [facility] Last Admin: 05/10/19 10:08 Dose: 1,000 mcg Lactated Ringer's (Lactated Ringers Solution) 1,000 ml in 1,000 mls @ 70 mls/ hr IV ASDIR [facility] Stop: 05/10/19 17:42 Metoprolol Succinate (Toprol Xl -) 25 mg PO BID [facility] Last Admin: 05/10/19 10:08 Dose: 25 mg - Objective Vital Signs: Vital Signs Temperature 97.5 F L 05/10/19 14:10 Pulse Rate 70 05/10/19 14:10 Respiratory Rate 18 05/10/19 14:10 Blood Pressure 104/64 05/10/19 14:10 O2 Sat by Pulse Oximetry (%) 95 05/10/19 09:00 Constitutional: Yes: No Distress, Calm Eyes: Yes: Conjunctiva Clear, EOM Intact Neck: Yes: Supple, Trachea Midline Cardiovascular: Yes: Regular Rate and Rhythm, S1, S2. No: Bradycardia, Tachycardia, Pulse Irregular, Bruit, JVD, Gallop, Murmur, Rub, S3, S4, Varicosities Respiratory: Yes: Regular, CTA Bilaterally. No: Rales, Rhonchi, Wheezes Gastrointestinal: Yes: Normal Bowel Sounds, Soft Extremities: Yes: WNL Edema: No Peripheral Pulses WNL: Yes Peripheral Pulses: Left Doralis Pedis: 2+, Right Dorsalis Pedis: 2+ Neurological: Yes: Alert Psychiatric: Yes: Alert Labs: CBC, BMP 05/09/19 06:15 05/10/19 06:00 INR, PTT INR 1.00 (0.83-1.09) 05/07/19 18:00 - ....Imaging Chest X-ray: Report Reviewed, Image Reviewed EKG: Report Reviewed, Image Reviewed Other: Report Reviewed, Image Reviewed (tele-no sig arrhythmias) Assessment/Plan 84 year old woman with no sig known pmh admitted with a fall at home and difficulty getting up. states that she remembers the episode very well. states that she was walking into the bathroom when she got a call and was trying to hurry up. she states she then fell forward onto the floor. states she felt too weak to get up at that point and remained on the floor until her daughter helped her. denies any chest pain, sob, palpitations. denies lightheadedness, dizziness, syncope, or near syncope. Found to have elevated CK c/w rhabdomyolysis and mild elev trop. Fall-likely mechanical, pt denies syncope or near syncope although her report of the event has been questioned -unlikely arrhythmia induced -echo showed normal LVEF, mod TR, no no other sig valvular abnl -no arrhythmias on tele that would cause syncope -dc tele Elev trop- -trended down with CK as expected -unlikely ACS -no symptoms of chest pain or sob -no ischemia on ekg -likely elevated secondary to rhabdo as well -echo showed normal LVEF no evidence of ND -cont ASA -no statin in setting of rhabdo -no ischemic arrhythmias on tele -cont IVF hydration for rhabdo -does not require ischemic work up during this admission Arrhythmia -sinus with frequent apcs and short psvt on tele -Toprol was started -no further arrhythmias overnight -can dc tele No additional inpatient cardiac work up is needed. Will see as needed. please call with any additional questions.
--- NOTE | 2019-05-10 16:34 | PN ---
Progress Note (short form) - Note Progress Note: ID CONSULT DICTATED S/P APPARENT SYNCOPE LOW GRADE FEVER ACUTE URINARY RETENTION AWAIT C/S OBSERVE OFF ANTIBIOTICS
--- NOTE | 2019-05-10 17:21 | CONS ---
INFECTIOUS DISEASE CONSULTATION DATE OF CONSULTATION: DATE OF DICTATION: 05/10/2019 HISTORY: The patient is an 84-year-old female evaluated for low-grade fever. History was obtained from the chart as she cannot give a reliable history. She was admitted to the hospital on May 07, 2019, after being found on the floor at her residence. She was admitted with apparent syncopal episode. According to the notes, she has been having increased confusion over the past several days associated with diarrhea. She was evaluated in the emergency room and subsequently admitted. Her course was complicated by acute urinary retention requiring catheterization and low-grade fever. She is awake. She is not verbally responsive. Offers no focal complaint. No reports of high-grade fever, shaking chills, labored breathing, cough, sputum production, vomiting, or grossly purulent urine. PAST MEDICAL HISTORY: Appears largely unremarkable. Patient has apparently not been under the care of a physician for some time. ALLERGIES: PENICILLIN. Nature of this allergy not known. MEDICATIONS: Aspirin, Lipitor, metoprolol. SOCIAL HISTORY: She lives at home. Positive history of tobacco use. SYSTEMS REVIEW: Neurologic: As per HPI. Cardiac: No reports of chest pain or palpitations. Respiratory: Negative cough or sputum production. Gastrointestinal: Positive for diarrhea. No vomiting. Genitourinary: Negative for urinary tract infection. LABORATORY DATA: White count 6.4, hematocrit 39.4, platelets 178, creatinine 0.8. Urinalysis, 2 white cells. Chest x-ray shows atelectasis left lung field. CAT scan of the abdomen and pelvis showed pleural effusions with some atelectasis versus lung consolidations at the bases and acute urinary retention. PHYSICAL EXAMINATION: General: She is awake. She is confused. She offers no complaints. Vital Signs: Temperature 97.5, maximum temperature 99.8, blood pressure 104/64, pulse 70 regular, respirations 18 per minute. HEENT: Sclerae anicteric. Heart: Sounds S1, S2. Lungs: Grossly clear. Poor inspiratory effort. Abdomen: Obese, soft, nontender. Extremities: 1+ edema. IMPRESSION: 1. Status post apparent syncopal episode, unclear etiology. 2. Low-grade fever. 3. Acute urinary retention status post catheterization. PLAN: Source of low-grade fever not clear at this time. Patient does not appear clinically toxic. White blood cell count normal. No clear infection focus. Would observe off antibiotic therapy. Await culture results. Aspiration precautions. We will follow. HARVEY POWERS M.D. GEOFFREY/[id number]
[2019-05-10] MEDS ORDERED: ATORVASTATIN CA 20 MG TABLET (FP) PO SCH (22:00)
[2019-05-11] MEDS ORDERED: SODIUM CHLORIDE 0.45% 1,000 ML IV SCH (06:15)
[2019-05-11 07:03] LABS: BLOOD UREA NITROGEN 12.1 mg/dL (7-18); CALCIUM 8.1 mg/dL (8.5-10.1); CREATININE 0.6 mg/dL (0.55-1.3); POTASSIUM 3.7 mmol/L (3.5-5.1)
--- NOTE | 2019-05-11 09:55 | PN ---
Progress Note, Physician - Current Medication List Current Medications: Active Medications Albuterol/Ipratropium (Duoneb -) 1 amp NEB RQID [facility] Aspirin (Asa -) 81 mg PO DAILY [facility] Last Admin: 05/10/19 10:08 Dose: 81 mg Cyanocobalamin (Vitamin B12 Injection -) 1,000 mcg IM DAILY [facility] Last Admin: 05/10/19 10:08 Dose: 1,000 mcg Sodium Chloride (1/2 Normal Saline) 1,000 mls @ 75 mls/hr IV ASDIR [facility] Metoprolol Succinate (Toprol Xl -) 25 mg PO BID [facility] Last Admin: 05/10/19 22:27 Dose: 25 mg - Objective Vital Signs: Vital Signs Temperature 97.5 F L 05/11/19 06:00 Pulse Rate 156 H 05/11/19 06:00 Respiratory Rate 18 05/11/19 06:00 Blood Pressure 137/68 05/11/19 06:00 O2 Sat by Pulse Oximetry (%) 94 L 05/10/19 21:00 Cardiovascular: Yes: S1, S2 Respiratory: Yes: Regular, CTA Bilaterally Gastrointestinal: Yes: Normal Bowel Sounds, Soft. No: Tenderness Genitourinary: Yes: Melchor Present Neurological: Yes: Alert, Oriented Labs: CBC, BMP 05/09/19 06:15 05/11/19 05:40 INR, PTT INR 1.00 (0.83-1.09) 05/07/19 18:00 Problem List - Problems (1) Syncope Assessment/Plan: Serial Enzymes--trop high--trending down EKG NSR APCS Head CT nad--mri--no cva Echo NL LV Cardiology consult Monitor CBC, BMP Fall Precautions Code(s): R55 - SYNCOPE AND COLLAPSE Qualifiers: Syncope type: unspecified Qualified Code(s): R55 - Syncope and collapse (2) Elevated troponin Assessment/Plan: TRENDING DOWN r/o ND--EKG NO ISCHEMIC CHANGES Cardiology follow up noted Code(s): R79.89 - OTHER SPECIFIED ABNORMAL FINDINGS OF BLOOD CHEMISTRY (3) Vitamin B 12 deficiency Assessment/Plan: b12 given Code(s): E53.8 - DEFICIENCY OF OTHER SPECIFIED B GROUP VITAMINS (4) Fall Assessment/Plan: had a fall Head CT- reviewed C-Spine CT- no fx--djd Code(s): W19.XXXA - UNSPECIFIED FALL, INITIAL ENCOUNTER (5) Diarrhea Assessment/Plan: resolved cultures monitor Code(s): R19.7 - DIARRHEA, UNSPECIFIED (6) Rhabdomyolysis Assessment/Plan: off vf improving monitor renal consult noted 05/08/19 05/09/19 05/10/19 05:37 06:15 06:00 Creatine Kinase 5162 H 5113 H 2390 H CK-MB (CK-2) Troponin I 1.81 H* 05/10/19 08:30 Creatine Kinase 2491 H CK-MB (CK-2) 6.8 H Troponin I 0.49 H Code(s): M62.82 - RHABDOMYOLYSIS (7) Arrhythmia Assessment/Plan: pvc/apc monitor ekg Code(s): I49.9 - CARDIAC ARRHYTHMIA, UNSPECIFIED (8) Hydronephrosis Assessment/Plan: melchor urology Code(s): N13.30 - UNSPECIFIED HYDRONEPHROSIS (9) Fever Assessment/Plan: low grade -resolved monitor off abx id appreciated Microbiology 05/09/19 17:00 Blood - Peripheral Venous Blood Culture - Preliminary NO GROWTH OBTAINED AFTER 24 HOURS, INCUBATION TO CONTINUE FOR 4 DAYS. 05/09/19 16:45 Blood - Peripheral Venous Blood Culture - Preliminary NO GROWTH OBTAINED AFTER 24 HOURS, INCUBATION TO CONTINUE FOR 4 DAYS. 05/07/19 18:00 Urine - Urine Clean Catch Urine Culture - Final NO GROWTH OBTAINED Code(s): R50.9 - FEVER, UNSPECIFIED (10) Pleural effusion Assessment/Plan: NL LV FUNCTION MAYBE DUE TO IVF__STOPPED--MONITOR Code(s): J90 - PLEURAL EFFUSION, NOT ELSEWHERE CLASSIFIED
[2019-05-11] MEDS: CYANOCOBALAMIN (VITAMIN B-12) 1000 MCG/1 ML VIAL IM SCH (10:18)
[2019-05-11] MEDS: metoPROLOL SUCCINATE 25 MG TAB.SR.24H (FP) PO SCH (10:19)
[2019-05-11] MEDS: ASPIRIN 81 MG CHEWABLE TABLETS PO SCH (10:19)
[2019-05-11] MEDS: ALBUTEROL SO4 2.5/IPRATROPIUM 0.5 INH SOL 3 ML VIAL.NEB. NEB SCH ×3 (13:31→21:10)
--- NOTE | 2019-05-11 14:23 | RAPID ---
Physical Examination Vital Signs: Vital Signs Temperature 98.2 F 05/11/19 11:33 Pulse Rate 110 H 05/11/19 11:33 Respiratory Rate 18 05/11/19 11:33 Blood Pressure 99/62 05/11/19 11:33 O2 Sat by Pulse Oximetry (%) 94 L 05/10/19 21:00 Labs: CBC, BMP 05/09/19 06:15 05/11/19 05:40 Rapid Response - Rapid Response Assessment: Rapid response was called for tachycardia. Pt was found to be in afib with RVR on monitor at 160. 10mg diltiazem was administered and pt's heart rate improved into the 80s still in afib. Pt was given lopressor 25mg PO to cover until evening metoprolol. Pt was given 1 dose therapeutic lovenox. 114/97 Pt awake and alert not tachypneic
[2019-05-11] MEDS ORDERED: dilTIAZem HCL 50 MG/10 ML - 10 ML VIAL IVPUSH ONE (14:28)
[2019-05-11] MEDS ORDERED: ENOXAPARIN NA (PORCINE) 60 MG/0.6 ML DISP.SYRIN SQ SCH (14:30)
[2019-05-11] MEDS ORDERED: METOPROLOL TARTRATE 25 MG TABLET (FP) PO ONE (14:31)
[2019-05-11] MEDS ORDERED: ENOXAPARIN NA (PORCINE) 60 MG/0.6 ML DISP.SYRIN SQ ONE (14:32)
--- NOTE | 2019-05-11 15:08 | EKG ---
Test Reason : Blood Pressure : / mmHG Vent. Rate : 083 BPM Atrial Rate : 357 BPM P-R Int : 000 ms QRS Dur : 086 ms QT Int : 368 ms P-R-T Axes : 000 004 -12 degrees QTc Int : 432 ms ATRIAL FIBRILLATION NONSPECIFIC ST ABNORMALITY ABNORMAL ECG WHEN COMPARED WITH ECG OF 09-MAY-2019 09:46, ATRIAL FIBRILLATION HAS REPLACED SINUS RHYTHM NON-SPECIFIC CHANGE IN ST SEGMENT IN INFERIOR LEADS QT HAS SHORTENED Confirmed by BEATRICE RIGGS, TERESSA ([id number]) on 05/11/2019 3:08:04 PM Referred By: Confirmed By:TERESSA BARRON MD
--- NOTE | 2019-05-11 15:10 | EKG ---
Test Reason : Blood Pressure : / mmHG Vent. Rate : 110 BPM Atrial Rate : 125 BPM P-R Int : 000 ms QRS Dur : 088 ms QT Int : 372 ms P-R-T Axes : 000 005 016 degrees QTc Int : 503 ms ATRIAL FIBRILLATION WITH RAPID VENTRICULAR RESPONSE WITH PREMATURE VENTRICULAR OR ABERRANTLY CONDUCTED COMPLEXES NONSPECIFIC ST ABNORMALITY ABNORMAL ECG WHEN COMPARED WITH ECG OF 11-MAY-2019 14:27, QT HAS LENGTHENED Confirmed by BEATRICE RIGGS, TERESSA ([id number]) on 05/11/2019 3:10:13 PM Referred By: Confirmed By:TERESSA BARRON MD
--- NOTE | 2019-05-11 15:26 | PN ---
Progress Note (short form) - Note Progress Note: GI CONSULT DICTATED MRCP ORDERED
--- NOTE | 2019-05-11 15:55 | CONS ---
DATE OF CONSULTATION: DATE OF DICTATION: 05/11/2019 GASTROENTEROLOGY CONSULTATION Patient is an 84-year-old woman with a past medical history of vitamin B12 deficiency, who was admitted to the hospital after being found on the floor in her house. Apparently she was walking to the bathroom and received a phone call, tried to hurry and ended up missing her step and falling to the floor. At that point she was unable to get up until the daughter helped her and subsequently brought her to the hospital for further evaluation. She was admitted with diagnoses of fall, rhabdomyolysis and syncope. During the course, a CT scan of the abdomen and pelvis was performed and revealed a questionable hepatic lobe lesion. The patient is a poor historian but denies any abdominal pain, nausea, vomiting, hematemesis, melena, hematochezia or weight loss. She has not had a recent endoscopic evaluation, and there is no history of liver disease. PAST MEDICAL AND SURGICAL HISTORY: As listed in the HPI. ALLERGIES: PENICILLIN. SOCIAL HISTORY: Does not drink, smoke or use drugs. FAMILY HISTORY: Noncontributory. PHYSICAL EXAMINATION: Vital Signs: Temperature 98, pulse 110, blood pressure 99/62, oxygen saturation 98%, respiratory rate 12. General: In no acute distress, awake, alert and oriented. Abdomen: Soft and nontender. Cardiovascular: S1 and S2, regular rate and rhythm. Lungs: Bilaterally clear to auscultation. Lower Extremities: Without edema. LABORATORY DATA: White blood cell count 6.4, hemoglobin 13, hematocrit 39, MCV 86, platelet count 178. INR 1. Sodium 142, potassium 3.7, BUN 12, creatinine 0.6, glucose 87, calcium 8.1. AST 100, ALT 57, alkaline phosphatase 125. Creatine kinase 2491. Troponin I 0.49. CULTURES: Negative so far. IMAGING: Her CT scan done on the of the abdomen and pelvis without contrast revealed: Bilateral pleural effusions, consolidations, atelectasis, left greater than right. Trace ascites. Questionable right lobe liver lesion. Bilateral hydronephrosis with perinephric stranding and fluid on the left side suggesting obstruction. No obstructing mass or calculus. IMPRESSION: 1. Abnormal liver tests, AST predominant, most likely secondary to underlying rhabdomyolysis after the fall. 2. Questionable right lobe lesion on a noncontrast study. This will need to be evaluated further with an MRCP. RECOMMENDATION: Continue diet as tolerated. Hydration as per primary team. Monitor LFTs. Further recommendations pending MRCP results. DO MALLORY TENORIO/[id number]
--- NOTE | 2019-05-11 16:25 | PN ---
Progress Note, Physician History of Present Illness: Pt seen and examined at bedside. She is laying down in bed and appears comfortable. She denies shortness of breath. - Current Medication List Current Medications: Active Medications Albuterol/Ipratropium (Duoneb -) 1 amp NEB RQID [facility] Aspirin (Asa -) 81 mg PO DAILY [facility] Last Admin: 05/11/19 10:19 Dose: 81 mg Cyanocobalamin (Vitamin B12 Injection -) 1,000 mcg IM DAILY [facility] Last Admin: 05/11/19 10:18 Dose: 1,000 mcg Metoprolol Succinate (Toprol Xl -) 25 mg PO BID [facility] Last Admin: 05/11/19 10:19 Dose: 25 mg - Objective Vital Signs: Vital Signs Temperature 97.5 F L 05/11/19 14:20 Pulse Rate 140 H 05/11/19 14:20 Respiratory Rate 18 05/11/19 14:20 Blood Pressure 101/72 05/11/19 14:20 O2 Sat by Pulse Oximetry (%) 94 L 05/10/19 21:00 Constitutional: Yes: Calm Eyes: Yes: Conjunctiva Clear HENT: Yes: Atraumatic Neck: Yes: Supple Cardiovascular: Yes: S1, S2 Respiratory: Yes: CTA Bilaterally Gastrointestinal: Yes: Normal Bowel Sounds, Soft Genitourinary: Yes: Jason Present Musculoskeletal: Yes: WNL Neurological: Yes: Oriented Psychiatric: Yes: Oriented Labs: CBC, BMP 05/09/19 06:15 INR, PTT INR 1.00 (0.83-1.09) 05/07/19 18:00 Assessment/Plan Current Medications Generic Name Dose Route Start Last Admin Trade Name Valentina PRN Reason Stop Dose Admin Albuterol/Ipratropium 1 amp 05/11/19 12:00 Duoneb - NEB RQID [facility] Aspirin 81 mg 05/08/19 10:00 05/11/19 10:19 Asa - PO 81 mg DAILY [facility] Administration Cyanocobalamin 1,000 mcg 05/08/19 10:00 05/11/19 10:18 Vitamin B12 Injection - IM 1,000 mcg DAILY [facility] Administration Metoprolol Succinate 25 mg 05/09/19 10:00 05/11/19 10:19 Toprol Xl - PO 25 mg BID [facility] Administration Laboratory Tests 05/10/19 08:30 Creatine Kinase 2491 H ASSESSMENT AND PLAN: 1. Rhabdomyolysis 2. Fall 3. Possible UTI 4. Non-anion gap metabolic acidosis 6. Diarrhea/Loose stools Plan - cont to monitor renal function - check cpk - encourage po intake - monitor for fluids daily
[2019-05-11 16:52] LABS: BLOOD UREA NITROGEN 14.9 mg/dL (7-18); CALCIUM 7.8 mg/dL (8.5-10.1); CREATININE 0.6 mg/dL (0.55-1.3); MAGNESIUM 2.2 mg/dL (1.8-2.4); POTASSIUM 3.6 mmol/L (3.5-5.1)
--- NOTE | 2019-05-11 17:29 | PN ---
Progress Note (short form) - Note Progress Note: Patient with new afib on telemetry Change metoprolol to lopressor 25mg q12 and uptitrate as tolerates Ensure no active infection If no contraindication as per primary team than can treat with anticoagulation. Can consider lovenox or heparin drip if possible procedure during admission. NOAC upon discharge. Report that patient is otherwise asymptomatic
[2019-05-11] MEDS ORDERED: SODIUM CHLORIDE 250 ML IV ONE (17:45)
[2019-05-11] MEDS: METOPROLOL TARTRATE 25 MG TABLET (FP) PO SCH (21:19)
[2019-05-12] MEDS: ENOXAPARIN NA (PORCINE) 60 MG/0.6 ML DISP.SYRIN SQ SCH ×2 (05:44→17:01)
[2019-05-12 06:36] LABS: BASO % 0.4 % (0-2.0); EOS % 1.6 % (0-4.5); HEMATOCRIT 36.7 % (32.4-45.2); HEMOGLOBIN 12.1 GM/dL (10.7-15.3); LYMPH % 15.2 % (8-40); MCH 28.4 pg (25.7-33.7); MCHC 32.9 g/dl (32.0-36.0); MEAN CELL VOLUME 86.4 fl (80-96); MEAN PLT VOLUME 8.8 fl (7.5-11.1); MONO % 12.7 % (3.8-10.2); NEUT % 70.1 % (42.8-82.8); PLATELET COUNT 179 K/MM3 (134-434); RBC 4.25 M/mm3 (3.60-5.2); RDW 14.3 % (11.6-15.6); WHITE BLOOD COUNT 5.4 K/mm3 (4.0-10.0)
[2019-05-12 07:04] LABS: ALBUMIN 2.3 g/dl (3.4-5.0); BILIRUBIN,TOTAL 0.7 mg/dL (0.2-1); CALCIUM 7.9 mg/dL (8.5-10.1); CREATININE 0.5 mg/dL (0.55-1.3); POTASSIUM 3.7 mmol/L (3.5-5.1); TOT PROT 5.1 g/dl (6.4-8.2)
--- NOTE | 2019-05-12 07:57 | PN.GI ---
GI Progress Note Subjective: loose bowel movements ; no other complaints - Objective Vital Signs: Vital Signs Temperature 98.1 F 05/12/19 06:00 Pulse Rate 65 05/12/19 06:00 Respiratory Rate 05/12/19 06:00 Blood Pressure 116/80 05/12/19 06:00 O2 Sat by Pulse Oximetry (%) 96 05/11/19 21:00 Constitutional: Well Nourished, No Distress, Calm Eyes: Yes: WNL HENT: Yes: WNL Neck: Yes: WNL Cardiovascular: Yes: WNL, Regular Rate and Rhythm Respiratory: Yes: WNL, Regular, CTA Bilaterally Gastrointestinal Inspection: Yes: WNL Edema: No Labs: CBC, BMP 05/12/19 05:40 05/12/19 05:40 INR, PTT INR 1.00 (0.83-1.09) 05/07/19 18:00 Problem List - Problems (1) Acute diarrhea Assessment/Plan: f/u mrcp stool c.diff pending results low residue lactose free diet Code(s): R19.7 - DIARRHEA, UNSPECIFIED (2) Liver lesion Code(s): K76.9 - LIVER DISEASE, UNSPECIFIED
[2019-05-12] MEDS: ALBUTEROL SO4 2.5/IPRATROPIUM 0.5 INH SOL 3 ML VIAL.NEB. NEB SCH ×4 (08:13→21:05)
--- NOTE | 2019-05-12 08:25 | PN ---
Progress Note, Physician Chief Complaint: No complaints today Afib yesterday on tele. Now in sinus with controlled rates. History of Present Illness: 84 year old woman with no sig known pmh admitted with a fall at home and difficulty getting up. states that she remembers the episode very well. states that she was walking into the bathroom when she got a call and was trying to hurry up. she states she then fell forward onto the floor. states she felt too weak to get up at that point and remained on the floor until her daughter helped her. denies any chest pain, sob, palpitations. denies lightheadedness, dizziness, syncope, or near syncope. Found to have elevated CK c/w rhabdomyolysis and mild elev trop. For possible MRCP - Current Medication List Current Medications: Active Medications Albuterol/Ipratropium (Duoneb -) 1 amp NEB RQID [facility] Last Admin: 05/12/19 08:13 Dose: 1 amp Aspirin (Asa -) 81 mg PO DAILY [facility] Last Admin: 05/11/19 10:19 Dose: 81 mg Cyanocobalamin (Vitamin B12 Injection -) 1,000 mcg IM DAILY [facility] Last Admin: 05/11/19 10:18 Dose: 1,000 mcg Enoxaparin Sodium (Lovenox -) 60 mg SQ Q12H [facility] Last Admin: 05/12/19 05:44 Dose: 60 mg Metoprolol Tartrate (Lopressor -) 25 mg PO BID [facility] Last Admin: 05/11/19 21:19 Dose: 25 mg - Objective Vital Signs: Vital Signs Temperature 98.1 F 05/12/19 06:00 Pulse Rate 65 05/12/19 06:00 Respiratory Rate 20 05/12/19 06:00 Blood Pressure 116/80 05/12/19 06:00 O2 Sat by Pulse Oximetry (%) 96 05/11/19 21:00 Constitutional: Yes: No Distress Neck: Yes: Supple Cardiovascular: Yes: Regular Rate and Rhythm, S1, S2. No: JVD, Murmur Respiratory: Yes: Diminished (bases) Gastrointestinal: Yes: Soft Edema: No Labs: CBC, BMP 05/12/19 05:40 05/12/19 05:40 INR, PTT INR 1.00 (0.83-1.09) 05/07/19 18:00 Problem List - Problems (1) Arrhythmia Code(s): I49.9 - CARDIAC ARRHYTHMIA, UNSPECIFIED Assessment/Plan 84 year old woman with no sig known pmh admitted with a fall at home and difficulty getting up. states that she remembers the episode very well. states that she was walking into the bathroom when she got a call and was trying to hurry up. she states she then fell forward onto the floor. states she felt too weak to get up at that point and remained on the floor until her daughter helped her. denies any chest pain, sob, palpitations. denies lightheadedness, dizziness, syncope, or near syncope. Found to have elevated CK c/w rhabdomyolysis and mild elev trop. Afib -echo showed normal LVEF, mod TR, no no other sig valvular abnl -Episode of afib with RVR yesterday. Metoprolol 25mg q12. Now in sinus rhythm with good HR's. Started on lovenox for AC. However, if she is not planned for any procedures would change this to a NOAC such as apixaban. -Will sign off at this time. Please call with any questions.
[2019-05-12] MEDS ORDERED: PT OWN MED DRAWER 7, Y5N ONE (08:53)
[2019-05-12] MEDS: CYANOCOBALAMIN (VITAMIN B-12) 1000 MCG/1 ML VIAL IM SCH (09:27)
[2019-05-12] MEDS: METOPROLOL TARTRATE 25 MG TABLET (FP) PO SCH ×2 (09:27→22:14)
[2019-05-12] MEDS: ASPIRIN 81 MG CHEWABLE TABLETS PO SCH (09:27)
--- NOTE | 2019-05-12 11:09 | PN ---
Progress Note, Physician - Current Medication List Current Medications: Active Medications Albuterol/Ipratropium (Duoneb -) 1 amp NEB RQID [facility] Last Admin: 05/12/19 08:13 Dose: 1 amp Aspirin (Asa -) 81 mg PO DAILY [facility] Last Admin: 05/12/19 09:27 Dose: 81 mg Cyanocobalamin (Vitamin B12 Injection -) 1,000 mcg IM DAILY [facility] Last Admin: 05/12/19 09:27 Dose: 1,000 mcg Enoxaparin Sodium (Lovenox -) 60 mg SQ Q12H [facility] Last Admin: 05/12/19 05:44 Dose: 60 mg Metoprolol Tartrate (Lopressor -) 25 mg PO BID [facility] Last Admin: 05/12/19 09:27 Dose: 25 mg - Objective Vital Signs: Vital Signs Temperature 98.1 F 05/12/19 06:00 Pulse Rate 65 05/12/19 06:00 Respiratory Rate 18 05/12/19 09:00 Blood Pressure 116/80 05/12/19 06:00 O2 Sat by Pulse Oximetry (%) 96 05/12/19 09:00 Cardiovascular: Yes: S1, S2 Respiratory: Yes: Regular, CTA Bilaterally Gastrointestinal: Yes: Normal Bowel Sounds, Soft Labs: CBC, BMP 05/12/19 05:40 05/12/19 05:40 INR, PTT INR 1.00 (0.83-1.09) 05/07/19 18:00 Problem List - Problems (1) Syncope Assessment/Plan: Serial Enzymes--trop high--trending down EKG NSR APCS Head CT nad--mri--no cva Echo NL LV Cardiology consult Monitor CBC, BMP Fall Precautions Code(s): R55 - SYNCOPE AND COLLAPSE Qualifiers: Syncope type: unspecified Qualified Code(s): R55 - Syncope and collapse (2) Elevated troponin Assessment/Plan: TRENDING DOWN r/o TN--EKG NO ISCHEMIC CHANGES Cardiology follow up noted Code(s): R79.89 - OTHER SPECIFIED ABNORMAL FINDINGS OF BLOOD CHEMISTRY (3) Vitamin B 12 deficiency Assessment/Plan: b12 given Code(s): E53.8 - DEFICIENCY OF OTHER SPECIFIED B GROUP VITAMINS (4) Fall Assessment/Plan: had a fall Head CT- reviewed C-Spine CT- no fx--djd Code(s): W19.XXXA - UNSPECIFIED FALL, INITIAL ENCOUNTER (5) Rhabdomyolysis Code(s): M62.82 - RHABDOMYOLYSIS (6) Arrhythmia Assessment/Plan: NEW ONSET AFIB AC Code(s): I49.9 - CARDIAC ARRHYTHMIA, UNSPECIFIED (7) Hydronephrosis Assessment/Plan: melchor urology Code(s): N13.30 - UNSPECIFIED HYDRONEPHROSIS (8) Fever Assessment/Plan: low grade -resolved monitor off abx id appreciated Microbiology 05/09/19 17:00 Blood - Peripheral Venous Blood Culture - Preliminary NO GROWTH OBTAINED AFTER 24 HOURS, INCUBATION TO CONTINUE FOR 4 DAYS. 05/09/19 16:45 Blood - Peripheral Venous Blood Culture - Preliminary NO GROWTH OBTAINED AFTER 24 HOURS, INCUBATION TO CONTINUE FOR 4 DAYS. 05/07/19 18:00 Urine - Urine Clean Catch Urine Culture - Final NO GROWTH OBTAINED Code(s): R50.9 - FEVER, UNSPECIFIED (9) Pleural effusion Assessment/Plan: NL LV FUNCTION MAYBE DUE TO IVF__STOPPED--MONITOR Code(s): J90 - PLEURAL EFFUSION, NOT ELSEWHERE CLASSIFIED (10) Afib Assessment/Plan: NEW ONSET MONITOR RATE ON METOPROLOL AC WITH LOVENOX PENDING GI W/U THEN ELIQUIS Code(s): I48.91 - UNSPECIFIED ATRIAL FIBRILLATION (11) Liver lesion Assessment/Plan: W/U PER GI AWAITING MRCP Code(s): K76.9 - LIVER DISEASE, UNSPECIFIED
--- NOTE | 2019-05-12 15:00 | PN ---
Progress Note, Physician History of Present Illness: Pt seen and examined at bedside. She is awake and appears comfortable. - Current Medication List Current Medications: Active Medications Albuterol/Ipratropium (Duoneb -) 1 amp NEB RQID [facility] Last Admin: 05/12/19 12:51 Dose: Not Given Aspirin (Asa -) 81 mg PO DAILY [facility] Last Admin: 05/12/19 09:27 Dose: 81 mg Cyanocobalamin (Vitamin B12 Injection -) 1,000 mcg IM DAILY [facility] Last Admin: 05/12/19 09:27 Dose: 1,000 mcg Enoxaparin Sodium (Lovenox -) 60 mg SQ Q12H [facility] Last Admin: 05/12/19 05:44 Dose: 60 mg Metoprolol Tartrate (Lopressor -) 25 mg PO BID [facility] Last Admin: 05/12/19 09:27 Dose: 25 mg - Objective Vital Signs: Vital Signs Temperature 97.8 F 05/12/19 10:00 Pulse Rate 77 05/12/19 10:00 Respiratory Rate 18 05/12/19 10:00 Blood Pressure 112/66 05/12/19 10:00 O2 Sat by Pulse Oximetry (%) 96 05/12/19 09:00 Constitutional: Yes: Calm Eyes: Yes: Conjunctiva Clear HENT: Yes: Atraumatic Neck: Yes: Supple Cardiovascular: Yes: S1, S2 Respiratory: Yes: CTA Bilaterally Gastrointestinal: Yes: Normal Bowel Sounds, Soft Genitourinary: Yes: Jason Present Musculoskeletal: Yes: WNL Edema: No Neurological: Yes: Oriented Psychiatric: Yes: Oriented Labs: CBC, BMP 05/12/19 05:40 05/12/19 05:40 INR, PTT INR 1.00 (0.83-1.09) 05/07/19 18:00 Assessment/Plan Current Medications Generic Name Dose Route Start Last Admin Trade Name Freq PRN Reason Stop Dose Admin Albuterol/Ipratropium 1 amp 05/11/19 12:00 05/12/19 12:51 Duoneb - NEB Not Given RQID [facility] Aspirin 81 mg 05/08/19 10:00 05/12/19 09:27 Asa - PO 81 mg DAILY [facility] Administration Cyanocobalamin 1,000 mcg 05/08/19 10:00 05/12/19 09:27 Vitamin B12 Injection - IM 1,000 mcg DAILY [facility] Administration Enoxaparin Sodium 60 mg 05/12/19 06:00 05/12/19 05:44 Lovenox - SQ 60 mg Q12H [facility] Administration Metoprolol Tartrate 25 mg 05/11/19 22:00 05/12/19 09:27 Lopressor - PO 25 mg BID [facility] Administration Laboratory Tests 05/10/19 05/12/19 08:30 05:40 Creatine Kinase 2491 H 1922 H ASSESSMENT AND PLAN: 1. Rhabdomyolysis 2. Fall 3. Possible UTI 4. Non-anion gap metabolic acidosis 6. Diarrhea/Loose stools Plan - cpk is improving - renal function stable - encourage po intake - repeat cpk in am
[2019-05-13] MEDS: ENOXAPARIN NA (PORCINE) 60 MG/0.6 ML DISP.SYRIN SQ SCH (06:06)
[2019-05-13] MEDS: ALBUTEROL SO4 2.5/IPRATROPIUM 0.5 INH SOL 3 ML VIAL.NEB. NEB SCH ×4 (07:53→21:21)
--- NOTE | 2019-05-13 07:54 | DS ---
Physical Examination Vital Signs: Vital Signs Temperature 98.3 F 05/13/19 06:00 Pulse Rate 56 L 05/13/19 06:00 Respiratory Rate 16 05/13/19 06:00 Blood Pressure 141/72 05/13/19 02:00 O2 Sat by Pulse Oximetry (%) 96 05/12/19 21:00 Constitutional: Yes: No Distress Cardiovascular: Yes: Pulse Irregular Respiratory: Yes: WNL Gastrointestinal: Yes: WNL ...Rectal Exam: Yes: Other Musculoskeletal: Yes: Muscle Weakness Labs: CBC, BMP 05/12/19 05:40 Discharge Summary Problems reviewed: Yes Reason For Visit: SYNCOPE,ELEVTED TROPONIN LEVEL Current Active Problems Acute diarrhea (Acute) Afib (Acute) Arrhythmia (Acute) Elevated troponin (Acute) Fall (Acute) Fever (Acute) Head injury (Acute) Hydronephrosis (Acute) Liver lesion (Acute) Pleural effusion (Acute) Rhabdomyolysis (Acute) Syncope (Acute) Syncope and collapse (Acute) Vitamin B 12 deficiency (Acute) Procedures: Principal: CT SCAN/LABS Hospital Course: ADMITTED ELEVATED CARDIAC ENZYMES, RAPID AFIB TX WITH MEDICATIONS IV AND PO WEAKNESS/UNSTEADY GAIT NEEDS SNF MONITOR LABS CPK OUTPATIENT Plan of Treatment: [facility], CHECK LABS, REPEAT CT SCAN ABDOMEN IN 4-6 WEEKS LIVER ETIOLOGY UNCLEAR THIS TIME WILL NEED GI EVAL OUTPATIENT Condition: Fair - Instructions Diet, Activity, Other Instructions: GI EVAL OUTPATIENT ELIQUIS STARTED BID MONITOR LABS CPK CHECK Referrals: Aretha Damon MD [Primary Care Provider] - Disposition: ALF FACILITY - Home Medications Comprehensive Discharge Medication List: Ambulatory Orders NK [No Known Home Medication] 05/07/19 Prescription Drug Monitoring Program (I-STOP) results: I-STOP not reviewed
[2019-05-13] MEDS ORDERED: PT OWN MED DRAWER 7, Y5N ONE (09:05)
[2019-05-13 09:18] LABS: BLOOD UREA NITROGEN 10.2 mg/dL (7-18); CALCIUM 8.1 mg/dL (8.5-10.1); CREATININE 0.5 mg/dL (0.55-1.3); POTASSIUM 4.2 mmol/L (3.5-5.1)
[2019-05-13] MEDS: METOPROLOL TARTRATE 25 MG TABLET (FP) PO SCH ×2 (09:39→22:01)
[2019-05-13] MEDS: ASPIRIN 81 MG CHEWABLE TABLETS PO SCH (09:39)
[2019-05-13] MEDS: CYANOCOBALAMIN (VITAMIN B-12) 1000 MCG/1 ML VIAL IM SCH (09:40)
[2019-05-13] MEDS: APIXABAN 5 MG TABLET PO SCH ×2 (09:40→22:01)
--- NOTE | 2019-05-13 12:03 | PN ---
Progress Note (short form) - Note Progress Note: Renal follow up for Rhabdomyolysis Seen and examined at the bedside awake and alert no acute complaints Vital Signs Temperature 98.6 F 05/13/19 08:49 Pulse Rate 66 05/13/19 08:49 Respiratory Rate 16 05/13/19 08:49 Blood Pressure 141/72 05/13/19 02:00 O2 Sat by Pulse Oximetry (%) 96 05/13/19 11:20 Intake & Output 05/10/19 05/11/19 05/12/19 05/13/19 23:59 23:59 23:59 23:59 Intake Total 2760 1160 750 350 Output Total 2400 2100 1750 Balance 360 -940 -1000 350 NAD awake and alert neck supple no JVD RRR Fine rales at lung bases no LE edema CBC, BMP 05/12/19 05:40 05/13/19 07:05 Current Medications Albuterol/Ipratropium (Duoneb -) 1 amp NEB RQID [facility] Last Admin: 05/13/19 11:19 Dose: Not Given Apixaban (Eliquis -) 5 mg PO BID [facility] Last Admin: 05/13/19 09:40 Dose: 5 mg Aspirin (Asa -) 81 mg PO DAILY [facility] Last Admin: 05/13/19 09:39 Dose: 81 mg Cyanocobalamin (Vitamin B12 Injection -) 1,000 mcg IM DAILY [facility] Last Admin: 05/13/19 09:40 Dose: 1,000 mcg Metoprolol Tartrate (Lopressor -) 25 mg PO BID [facility] Last Admin: 05/13/19 09:39 Dose: 25 mg ASSESSMENT AND PLAN: 1. Rhabdomyolysis 2. Fall 3. Possible UTI 4. Non-anion gap metabolic acidosis 6. Diarrhea/Loose stools Renal function improved and stable CKs have improved, continue oral fluid intake continue GI work up if discharged should be maintained off statin for now, check CK's as outpatient. Thank you Dontrell Colon DO
--- NOTE | 2019-05-13 16:39 | PN ---
Progress Note, Physician Chief Complaint: The patient appears comfortable at the time of exam. he reports no chest pain, shortness of breath, palpitation or dizziness. Telemetry reviewed, it showed sinus rhythm with one 13 beat atrial tachycardia. No recurrent atrial fibrillation. History of Present Illness: 84 year old woman with no sig known past medical history admitted with a fall at home and difficulty getting up. She states she felt too weak to get up at that point. No symptoms of any chest pain, sob, palpitations. denies lightheadedness, dizziness, syncope, or near syncope. Found to have elevated CK c/w rhabdomyolysis and mild elev trop. She was found to have paroxysmal atrial fibrillation spontaneously cardioverted to sinus. - Current Medication List Current Medications: Active Medications Albuterol/Ipratropium (Duoneb -) 1 amp NEB RQID [facility] Last Admin: 05/13/19 16:20 Dose: Not Given Apixaban (Eliquis -) 5 mg PO BID [facility] Last Admin: 05/13/19 09:40 Dose: 5 mg Aspirin (Asa -) 81 mg PO DAILY [facility] Last Admin: 05/13/19 09:39 Dose: 81 mg Cyanocobalamin (Vitamin B12 Injection -) 1,000 mcg IM DAILY [facility] Last Admin: 05/13/19 09:40 Dose: 1,000 mcg Metoprolol Tartrate (Lopressor -) 25 mg PO BID [facility] Last Admin: 05/13/19 09:39 Dose: 25 mg - Objective Vital Signs: Vital Signs Temperature 97.6 F 05/13/19 13:40 Pulse Rate 75 05/13/19 13:40 Respiratory Rate 18 05/13/19 13:40 Blood Pressure 106/56 L 05/13/19 13:40 O2 Sat by Pulse Oximetry (%) 96 05/13/19 11:20 General: Well developed. Well nourished. No acute distress. Head: Normocephalic. Atraumatic, Eyes: PERRLA, EOMI. Sclerae anicteric. Conjunctivae clear. Neck: Supple. No JVD. No bruits. Heart: Normal S1, S2: Regular rhythm and rate. No murmur. No gallop or rub. Lungs: Symmetrical air entry. Clear to auscultation. No crackles. No wheezing or rhonchi. Abdomen: Soft. Bowel sound positive. Non tender. No masses. Extremities: Stasis and trace edema. No clubbing or cyanosis. PD 2+, equal bilaterally. Labs: CBC, BMP 05/12/19 05:40 05/13/19 07:05 INR, PTT INR 1.00 (0.83-1.09) 05/07/19 18:00 Assessment/Plan 84 year old woman with no sig known past medical history admitted with a fall at home and difficulty getting up. She states she felt too weak to get up at that point. No symptoms of any chest pain, sob, palpitations. denies lightheadedness, dizziness, syncope, or near syncope. Found to have elevated CK c/w rhabdomyolysis and mild elev trop. She was found to have paroxysmal atrial fibrillation spontaneously cardioverted to sinus. Paroxysmal atrial fibrillation: Currently in sinus with runs of atach. Continue Eliquis for stroke prevention. Continue metoprolol 25mg q12. May stop aspirin. Please do not hesitate to call us for reconsult at any time if any further questions or additional issue arises regarding this patient.
--- NOTE | 2019-05-13 20:40 | CON.GU ---
Consult Consult Specialty:: urology Reason for Consultation:: bilateral hydronephrosis - History of Present Illness Chief Complaint: bilateral hydronephrosis History of Present Illness: Patient is an 84 yo female admitted with sycope and elevated tropinin levels. the patient denies flank pain or nausea or vomiting or gross hematuria. Patient is currently with a melchor catheter - Past Medical History ...: No - Alcohol/Substance Use Hx Alcohol Use: No History of Substance Use: reports: None - Smoking History Smoking history: Current every day smoker Have you smoked in the past 12 months: Yes Aproximately how many cigarettes per day: 30 - Social History ADL: Family Assistance History of Recent Travel: No Home Medications - Allergies Allergies/Adverse Reactions: Allergies Allergy/AdvReac Type Severity Reaction Status Date / Time Penicillins Allergy Mild Rash Verified 05/07/19 17:27 - Home Medications Home Medications: Ambulatory Orders Albuterol 2.5/Ipratropium 0.5 [Duoneb -] 1 amp NEB RQID amp 05/13/19 Apixaban [Eliquis -] 5 mg PO BID tablet 05/13/19 Aspirin [ASA -] 81 mg PO DAILY tab.chew 05/13/19 Cyanocobalamin Vit B-12 Inj. [Vitamin B12 Injection -] 1,000 mcg IM DAILY #3 vial 05/13/19 Metoprolol Tartrate [Lopressor -] 25 mg PO BID tablet 05/13/19 Physical Exam- Vital Signs: Vital Signs Temperature 97.4 F L 05/13/19 17:00 Pulse Rate 75 05/13/19 17:00 Respiratory Rate 18 05/13/19 17:00 Blood Pressure 121/61 05/13/19 17:00 O2 Sat by Pulse Oximetry (%) 96 05/13/19 11:20 Constitutional: Yes: No Distress, Calm Eyes: Yes: WNL, Conjunctiva Clear, EOM Intact HENT: Yes: WNL, Atraumatic, Normocephalic, Other Neck: Yes: WNL, Supple Cardiovascular: Yes: Pulse Irregular Respiratory: Yes: Regular Gastrointestinal: Yes: Normal Bowel Sounds, Soft Renal/: Yes: WNL Kidneys: Yes: WNL Pelvis: Yes: Bladder Non Palpable External Genitalia: Yes: WNL (melchor draining clear urine) Labs: CBC, BMP 05/12/19 05:40 05/13/19 07:05 Imaging - Results Cat Scan: Report Reviewed (no evidence of ureteral obstruction with mild amount or retention) Assessment/Plan impression bilateral hydronephrosis with normal renal function urinary retention plan follow MRI done (report not ready) d/c melchor if MRI shows no further issues regarding ureteral obstruction
--- NOTE | 2019-05-14 07:57 | DS ---
Physical Examination Vital Signs: Vital Signs Temperature 98.1 F 05/14/19 06:00 Pulse Rate 66 05/14/19 06:00 Respiratory Rate 18 05/14/19 06:00 Blood Pressure 123/66 05/14/19 06:00 O2 Sat by Pulse Oximetry (%) 96 05/13/19 21:00 Labs: CBC, BMP 05/12/19 05:40 05/13/19 07:05 Discharge Summary Problems reviewed: Yes Reason For Visit: SYNCOPE,ELEVTED TROPONIN LEVEL Current Active Problems Acute diarrhea (Acute) Afib (Acute) Arrhythmia (Acute) Elevated troponin (Acute) Fall (Acute) Fever (Acute) Head injury (Acute) Hydronephrosis (Acute) Liver lesion (Acute) Pleural effusion (Acute) Rhabdomyolysis (Acute) Syncope (Acute) Syncope and collapse (Acute) Vitamin B 12 deficiency (Acute) Hospital Course: ADMITTED ELEVATED CARDIAC ENZYMES, RAPID AFIB TX WITH MEDICATIONS IV AND PO WEAKNESS/UNSTEADY GAIT NEEDS SNF MONITOR LABS CPK OUTPATIENT - Problems (1) Syncope Assessment/Plan: Serial Enzymes--trop high--trending down EKG NSR APCS Head CT nad--mri--no cva Echo NL LV Cardiology consult Monitor CBC, BMP Fall Precautions Code(s): R55 - SYNCOPE AND COLLAPSE Qualifiers: Syncope type: unspecified Qualified Code(s): R55 - Syncope and collapse (2) Elevated troponin Assessment/Plan: TRENDING DOWN r/o AL--EKG NO ISCHEMIC CHANGES Cardiology follow up noted Code(s): R79.89 - OTHER SPECIFIED ABNORMAL FINDINGS OF BLOOD CHEMISTRY (3) Vitamin B 12 deficiency Assessment/Plan: b12 given Code(s): E53.8 - DEFICIENCY OF OTHER SPECIFIED B GROUP VITAMINS (4) Fall Assessment/Plan: had a fall Head CT- reviewed C-Spine CT- no fx--djd Code(s): W19.XXXA - UNSPECIFIED FALL, INITIAL ENCOUNTER (5) Rhabdomyolysis Code(s): M62.82 - RHABDOMYOLYSIS (6) Arrhythmia Assessment/Plan: NEW ONSET AFIB AC Code(s): I49.9 - CARDIAC ARRHYTHMIA, UNSPECIFIED (7) Hydronephrosis Assessment/Plan: [facility] urology Code(s): N13.30 - UNSPECIFIED HYDRONEPHROSIS (8) Fever Assessment/Plan: low grade -resolved monitor off abx id appreciated Microbiology 05/09/19 17:00 Blood - Peripheral Venous Blood Culture - Preliminary NO GROWTH OBTAINED AFTER 24 HOURS, INCUBATION TO CONTINUE FOR 4 DAYS. 05/09/19 16:45 Blood - Peripheral Venous Blood Culture - Preliminary NO GROWTH OBTAINED AFTER 24 HOURS, INCUBATION TO CONTINUE FOR 4 DAYS. 05/07/19 18:00 Urine - Urine Clean Catch Urine Culture - Final NO GROWTH OBTAINED Code(s): R50.9 - FEVER, UNSPECIFIED (9) Pleural effusion Assessment/Plan: NL LV FUNCTION MAYBE DUE TO IVF__STOPPED--MONITOR Code(s): J90 - PLEURAL EFFUSION, NOT ELSEWHERE CLASSIFIED (10) Afib Assessment/Plan: NEW ONSET MONITOR RATE ON METOPROLOL AC WITH LOVENOX PENDING GI W/U THEN ELIQUIS Code(s): I48.91 - UNSPECIFIED ATRIAL FIBRILLATION (11) Liver lesion Assessment/Plan: W/U PER GI AWAITING MRCP Code(s): K76.9 - LIVER DISEASE, UNSPECIFIED Plan of Treatment: [facility], CHECK LABS, REPEAT CT SCAN ABDOMEN IN 4-6 WEEKS LIVER ETIOLOGY UNCLEAR THIS TIME WILL NEED GI EVAL OUTPATIENT Condition: Fair - Instructions Diet, Activity, Other Instructions: GI EVAL OUTPATIENT ELIQUIS STARTED BID MONITOR LABS CPK CHECK Referrals: Aretha Damon MD [Primary Care Provider] - Disposition: HALF-WAY FACILITY - Home Medications Comprehensive Discharge Medication List: Ambulatory Orders Albuterol 2.5/Ipratropium 0.5 [Duoneb -] 1 amp NEB RQID amp 05/13/19 Apixaban [Eliquis -] 5 mg PO BID tablet 05/13/19 Aspirin [ASA -] 81 mg PO DAILY tab.chew 05/13/19 Cyanocobalamin Vit B-12 Inj. [Vitamin B12 Injection -] 1,000 mcg IM DAILY #3 vial 05/13/19 Metoprolol Tartrate [Lopressor -] 25 mg PO BID tablet 05/13/19
[2019-05-14] MEDS: ASPIRIN 81 MG CHEWABLE TABLETS PO SCH (09:14)
[2019-05-14] MEDS: APIXABAN 5 MG TABLET PO SCH (09:14)
[2019-05-14] MEDS: CYANOCOBALAMIN (VITAMIN B-12) 1000 MCG/1 ML VIAL IM SCH (09:15)
[2019-05-14] MEDS: METOPROLOL TARTRATE 25 MG TABLET (FP) PO SCH (09:20)
[2019-05-14] MEDS: ALBUTEROL SO4 2.5/IPRATROPIUM 0.5 INH SOL 3 ML VIAL.NEB. NEB SCH ×2 (09:35→13:07)
[2019-05-14 14:54] VITALS: BP 94/57; PULSE 68; TEMP 97.7
--- NOTE | 2019-05-14 15:31 | PN.GI ---
GI Progress Note Subjective: No focal coomplaints. Transaminases trened to normal MRCP: CBD normal caliber, 5mm cyst in tail of pancreas and no liver lesion noted. Renal findings, T10 vertebral finding - Objective Vital Signs: Vital Signs Temperature 97.7 F 05/14/19 14:40 Pulse Rate 68 05/14/19 14:40 Respiratory Rate 18 05/14/19 14:40 Blood Pressure 94/57 L 05/14/19 14:40 O2 Sat by Pulse Oximetry (%) 96 05/14/19 10:00 Constitutional: Calm Eyes: No: Sclera Icterus Cardiovascular: Yes: Regular Rate and Rhythm Respiratory: Yes: CTA Bilaterally Gastrointestinal Inspection: No: Distention ...Auscultate: Yes: Normoactive Bowel Sounds ...Palpate: Yes: Soft. No: Tenderness ...Percussion: No: Tympanitic Edema: No (No LE edema) Neurological: Yes: Alert Labs: CBC, BMP 05/12/19 05:40 05/13/19 07:05 INR, PTT INR 1.00 (0.83-1.09) 05/07/19 18:00 Problem List - Problems (1) Abnormal liver function tests Assessment/Plan: Improving as rhabdomyolysis improves F/U of Vertebral findings on MRI per PMD F/U of renal findings on MRI per urology Code(s): R94.5 - ABNORMAL RESULTS OF LIVER FUNCTION STUDIES
== END 2019-05-14 17:21 | DRG 558 ==
LOC: JER 17:13 → JERBED 20:31 → J4S 05-08 15:11
PROVIDERS: ADMIT Family Medicine; ATTEND Family Medicine
DX: M62.82 Rhabdomyolysis (principal); K86.2 Cyst of pancreas; N13.30 Unspecified hydronephrosis; E87.2 Acidosis; J90 Pleural effusion, not elsewhere classified; I48.0 Paroxysmal atrial fibrillation; R55 Syncope and collapse; E86.0 Dehydration; R19.7 Diarrhea, unspecified; R50.9 Fever, unspecified; K76.9 Liver disease, unspecified; S09.90XA Unspecified injury of head, initial encounter; E53.8 Deficiency of other specified B group vitamins; F17.210 Nicotine dependence, cigarettes, uncomplicated; R79.89 Other specified abnormal findings of blood chemistry; I49.9 Cardiac arrhythmia, unspecified; R94.5 Abnormal results of liver function studies; R33.9 Retention of urine, unspecified; R00.0 Tachycardia, unspecified; R26.81 Unsteadiness on feet; W18.39XA Other fall on same level, initial encounter; Y92.098 Other place in other non-institutional residence as the place of occurrence of the external cause
CPT/HCPCS: 36415; 70450-TC; 70551-TC; 71045-TC-FY; 72125-TC; 74176-TC; 74181-TC; 80048; 80053; 80061; 81003; 82436; 82550; 82553; 82607; 83036; 83690; 83721; 83735; 84100; 84133; 84300; 84443; 84484; 85025; 85610; 85730; 87040; 87086; 93005; 93010; 93306-TC; 94640; 97116-GP; 97161-GP; 99285-25; J7030

== ENCOUNTER 2019-06-29 14:48 | Inpatient (IN) | payer OTHER, BC ==
--- NOTE | 2019-06-29 14:55 | PDOC ---
History of Present Illness - General Chief Complaint: Hematuria Stated Complaint: BLOOD IN URINE Time Seen by Provider: 06/29/19 14:50 History Source: Patient Exam Limitations: No Limitations - History of Present Illness Initial Comments: Hx limited bc patient is a poor historian. Daughter in law at bedside helps with history. Samantha Guzman is an 84 yo F, recently discharged to [facility] 05/15/19, w a hx of A-fib on apixaban, falls and syncope, hydronephrosis, rhabdomyolysis and elevated trops, pleural effusions, a liver lesion, vitamin B12 deficiency, and an unsteady gait who presents to the [facility] er via [facility] because she has blood in her urine. Per the [place] papers patient has been experiencing hematuria for almost a month and is currently being treated for a UTI with levaquin. The daughter in law states the patient has experienced anorexia over the past month but has not lost any weight and has not been waking up in the middle of the night sweating. The patient has also been urinating more frequently than usual but has not been experiencing dysuria. Denies recent fevers, chest pain, SOB, difficulty breathing, headache, nausea, vomiting, or diarrhea. PCP: Aretha Damon Urologist: [place] PSH: None reported Social Hx: [facility] resident. Smokes 30 cigarettes daily. Allergies: Penicillins Meds: 1) Levaquin 2) Albuterol 2.5/Ipratropium 0.5 [Duoneb -] 1 amp NEB RQID amp 05/13/19 3) Apixaban [Eliquis -] 5 mg PO BID tablet 05/13/19 4) Aspirin [ASA -] 81 mg PO DAILY tab.chew 05/13/19 5) Cyanocobalamin Vit B-12 Inj. [Vitamin B12 Injection -] 1,000 mcg IM DAILY #3 vial 05/13/19 6) Metoprolol Tartrate [Lopressor -] 25 mg PO BID tablet 05/13/19 Past History - Past Medical History Allergies/Adverse Reactions: Allergies Allergy/AdvReac Type Severity Reaction Status Date / Time Penicillins Allergy Mild Rash Verified 06/29/19 15:41 Home Medications: Ambulatory Orders Albuterol 2.5/Ipratropium 0.5 [Duoneb -] 1 amp NEB RQID amp 05/13/19 Apixaban [Eliquis -] 5 mg PO BID tablet 05/13/19 Aspirin [ASA -] 81 mg PO DAILY tab.chew 05/13/19 Metoprolol Tartrate [Lopressor -] 25 mg PO BID tablet 05/13/19 Acetaminophen 650 mg PO Q6H 06/29/19 Cyanocobalamin Vit B-12 Inj. [Vitamin B12 Injection -] 1,000 mcg IM ASDIR Polyvinyl Alcohol [Artificial Tears] 1 drop OD BID 06/29/19 levoFLOXacin 500 MG IVPB [Levaquin 500 mg Premixed Ivpb -] 500 mg IVPB DAILY COPD: No - Psycho Social/Smoking Cessation Hx Smoking History: Current every day smoker Have you smoked in the past 12 months: Yes Number of Cigarettes Smoked Daily: 30 'Breaking Loose' booklet given: 05/08/19 Hx Alcohol Use: No Drug/Substance Use Hx: No Substance Use Type: None Hx Substance Use Treatment: No Review of Systems - Review of Systems Able to Perform ROS?: Yes Comments:: CONSTITUTIONAL: Absent: fever, no chills, no fatigue EYES: Absent: visual changes ENT: Absent: ear pain, no sore throat CARDIOVASCULAR: Absent: chest pain, no palpitations RESPIRATORY: Absent: cough, no SOB GI: Present: Abdominal pain Absent: no nausea, no vomiting, no constipation, no diarrhea GENITOURINARY: Present: frequency, hematuria Absent: dysuria, urgency, hesitancy MUSKULOSKELETAL: Absent: back pain, no arthralgia, no myalgia SKIN: Absent: rash NEURO: Absent: headache *Physical Exam - Physical Exam GENERAL: Well-appearing, well-nourished. No apparent distress. HEENT: Normocephalic, atraumatic. PERRL, EOM intact. CARDIOVASCULAR: Normal S1, S2. Regular rate and rhythm. PULMONARY: No evidence of respiratory distress. Lungs clear to auscultation bilaterally. No wheezing, rales or rhonchi. ABDOMEN: There is suprapubic abdominal TTP. Still soft and non-distended. EXTREMITIES: Limited ROM in all four extremities. No gross deformities. Hematoma on left hand. SKIN: Warm, dry. No rash other than scattered hematomas. NEUROLOGICAL: Alert to time, not to place or date. No focal neurological deficits. ED Treatment Course - LABORATORY CBC & Chemistry Diagram: 06/29/19 16:03 06/29/19 16:03 - RADIOLOGY Radiograph Interpretation: CTAP: FINDINGS: Atelectasis, scarring, and mild bronchiectasis in lung bases. No pleural effusions. Nonspecific hyperdense liver parenchyma, most often due to medication usage. The gallbladder, pancreas, and spleen are grossly unremarkable. Proximal duodenal diverticulum. 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 2 cm indeterminate left adrenal nodule. Mild bilateral renal cortical scarring. Bilateral pelvocaliectasis. No renal or urinary calculi. Ectatic aorta without yony aneurysm. *Substantial stool in the distal colon and rectum with mild adjacent edema suggestive of stercoral proctocolitis. Indwelling Jason catheter within the bladder. No obvious diverticulitis. No evidence for appendicitis, small bowel obstruction , free fluid, or free air. Moderate left femoral hernia containing fat Vertebral hemangioma at T10. Perineural cysts in the sacrum Medical Decision Making - Medical Decision Making Samantha Guzman is an 84 yo F, recently discharged to [facility] 05/15/19, w a hx of A-fib on apixaban, falls and syncope, hydronephrosis, rhabdomyolysis and elevated trops, pleural effusions, a liver lesion, vitamin B12 deficiency, and an unsteady gait who presents to the [facility] er via [facility] because she has blood in her urine. Per the [place] papers patient has been experiencing hematuria for almost a month and is currently being treated for a UTI with levaquin. The daughter in law states the patient has experienced anorexia over the past month but has not lost any weight and has not been waking up in the middle of the night sweating. The patient has also been urinating more frequently than usual but has not been experiencing dysuria. Vital Signs Temp Pulse Resp BP Pulse Ox 97.4 F L 89 18 104/69 99 06/29/19 15:06 06/29/19 15:06 06/29/19 15:06 06/29/19 15:06 06/29/19 15:06 DDx IBNLT: UTI, pyelonephritis, hemorrhagic cystitis, bladder/uterine cancer or other malignancy, rhabdomyolysis, electrolyte/metabolic disturbance, anemia Plan: labs, EKG, urine, POCUS US, CT, Uro consult, re-assess. EKG: NS rate of 80, Narrow complexes, LAD, no hypertrophy, no ST elevations or depressions, QTc 445, WI 168 Labs: Hb stable Urine: Yony blood and bacteria - Treating with Ceftriaxone POCUS: b/l mild hydro, random cysts CT: *Substantial stool in the distal colon and rectum with mild adjacent edema suggestive of stercoral proctocolitis. Re-assessment: Patient feels well but considering she is anticoagulated and has yony hematuria we want to admit her for frequent H&H checks as well as a UTI which is not being treated appropriately with flouroquinolones - Will start patient on Ceftriaxone for UTI (Rash allergy to penicillin not verified) Uro Consult: Dr. Hannah Disposition: Med/Surg Discharge - Discharge Information Problems reviewed: Yes Clinical Impression/Diagnosis: Hemorrhagic cystitis, Yony hematuria, Anticoagulated UTI (urinary tract infection) Qualifiers: Urinary tract infection type: acute cystitis Hematuria presence: with hematuria Qualified Code(s): N30.01 - Acute cystitis with hematuria Condition: Stable - Admission Yes - Follow up/Referral - Patient Discharge Instructions - Post Discharge Activity
[2019-06-29] MEDS ORDERED: ACETAMINOPHEN 325 MG TABLET (FP) PO ONE (15:26)
[2019-06-29] MEDS ORDERED: SODIUM CHLORIDE 500 ML IV STA (15:27)
[2019-06-29] MEDS ORDERED: ACETAMINOPHEN 325 MG TABLET (FP) ONE (15:33)
[2019-06-29 16:20] LABS: BASO % 0.6 % (0-2.0); EOS % 1.5 % (0-4.5); HEMATOCRIT 35.9 % (32.4-45.2); HEMOGLOBIN 11.9 GM/dL (10.7-15.3); LYMPH % 11.9 % (8-40); MCH 28.5 pg (25.7-33.7); MCHC 33.1 g/dl (32.0-36.0); MEAN CELL VOLUME 86.3 fl (80-96); MEAN PLT VOLUME 7.3 fl (7.5-11.1); PLATELET COUNT 379 K/MM3 (134-434); RBC 4.16 M/mm3 (3.60-5.2); RDW 15.3 % (11.6-15.6); WHITE BLOOD COUNT 6.1 K/mm3 (4.0-10.0)
[2019-06-29 16:34] LABS: INR 1.3 (0.83-1.09); PROTHROMBIN TIME (PATIENT) 15.4 SEC (9.7-13.0)
[2019-06-29 16:36] LABS: ACTIVATED PTT 31.5 SECONDS (25.2-36.5)
[2019-06-29 16:50] LABS: ALBUMIN 2.1 g/dl (3.4-5.0); BILIRUBIN,TOTAL 0.4 mg/dL (0.2-1); BLOOD UREA NITROGEN 15.8 mg/dL (7-18); CALCIUM 8.1 mg/dL (8.5-10.1); CREATININE 0.7 mg/dL (0.55-1.3); POTASSIUM 4.2 mmol/L (3.5-5.1)
[2019-06-29 17:10] LABS: EPI CELLS 0 /HPF (0-5/HPF); HYALINE CASTS 0 /lpf (0-8); URINE APPEARANCE TURBID; URINE COLOR RED; URINE RBC >200 /hpf (0-4)
[2019-06-29 17:11] LABS: URINE BACTERIA MODERATE /hpf (NEGATIVE)
--- NOTE | 2019-06-29 17:24 | PDOC ---
Attending Attestation - Resident Resident Name: Cristo Ashford - ED Attending Attestation I have performed the following: I have examined & evaluated the patient, The case was reviewed & discussed with the resident, I agree w/resident's findings & plan - HPI HPI: 06/29/19 17:26 84 yo F, recently discharged to [facility] 05/15/19, w a hx of A-fib on apixaban , falls and syncope, hydronephrosis, rhabdomyolysis and elevated trops, pleural effusions, a liver lesion, vitamin B12 deficiency, and an unsteady gait who presents to the [facility] er via [facility] because she has hematuria. Per the [place] papers patient has been experiencing hematuria for almost a month and is currently being treated for a UTI with levaquin. The daughter in law states the patient has experienced anorexia over the past month but has not lost any weight and has not been waking up in the middle of the night sweating. The patient has also been urinating more frequently than usual but has not been experiencing dysuria. PCP: Aretha Damon - Physicial Exam PE: 06/29/19 17:27 Agree with the resident's HPI and PE as documented in the electronic medical record. NAD, well appearing, EOMI, PERRL, nl conjunctiva, anicteric; neck supple. lungs clear, RRR, abdomen soft nontender. no rebound, guarding. melchor in place, +yony hematuria, dark tea colored. Back nontender. JAEGER x4, no focal neuro deficits. No peripheral edema. normal color for ethnicity, WWP. 06/29/19 19:08 - Medical Decision Making 06/29/19 17:27 Vital Signs Temp Pulse Resp BP Pulse Ox 97.4 F L 89 18 104/69 99 06/29/19 15:06 06/29/19 15:06 06/29/19 15:06 06/29/19 15:06 06/29/19 15:06 ddx. pyelonephritis, hemorrhagic cystitis, obstruction, hydronephrosis, renal colic/ureterolithiasis, anemia, electrolyte/metabolic derangements. medication side effect. labs and lytes wnl, Cr normal ck level wnl. UA with yony blood and WBCs becky with possible hemorrhagic cystitis no h/o anaphylaxis with pcn, unlikely for cross reactivity with 3rd gen cephalosporin. IV ceftriaxone, failed outpatient levaquin abx. for empiric/broader coverage f/u urine cultures pocus renal and bladder with b/l mild hydronephrisis, renal cysts. bladder nondistended, empty with melchor in place. no pelvic FF. CT a/p noncontrast to eval for any obstruction consider CBI for yony hematuria, given this could be infectious vs inflammatory vs medication/AC use and side effect pt is nonosbtructed, and non symptomatic CT from imaging on-call reveals indwelling Melchor within the bladder intact, femoral hernia with fat, substantial stool burden in the distal colon and rectum. There is bilateral renal cortical scarring and bilateral topical calyectasis no stones and no evidence of obstruction. uro cs with Dr Jose Craven as inpatient, admit to Dr Damon for hemorrhagic cystitis, yony hematuria on AC, cbc/checks 06/29/19 18:47 06/29/19 19:07 06/29/19 19:09
[2019-06-29] MEDS ORDERED: CEFTRIAXONE 1,000 MG in DEXTROSE 5%-WATER - 50 ML IVPB ONE (18:49)
[2019-06-29] MEDS ORDERED: SODIUM CHLORIDE 0.9% 500 ML INFUS.BAG IV ONE (18:54)
[2019-06-29] MEDS ORDERED: CYANOCOBALAMIN (VITAMIN B-12) 1000 MCG/1 ML VIAL IM SCH (19:15)
[2019-06-29] MEDS ORDERED: CEFTRIAXONE 1 GM/50 ML BAG ONE (19:15)
[2019-06-29] MEDS ORDERED: ALBUTEROL SO4 2.5/IPRATROPIUM 0.5 INH SOL 3 ML VIAL.NEB. NEB ONE (19:32)
[2019-06-29] MEDS ORDERED: ALBUTEROL SO4 2.5/IPRATROPIUM 0.5 INH SOL 3 ML VIAL.NEB. NEB SCH (20:00)
[2019-06-29 20:20] LABS: BASO % 0.6 % (0-2.0); EOS % 1.4 % (0-4.5); HEMATOCRIT 34.2 % (32.4-45.2); HEMOGLOBIN 11.3 GM/dL (10.7-15.3); LYMPH % 14.6 % (8-40); MCH 28.5 pg (25.7-33.7); MCHC 32.9 g/dl (32.0-36.0); MEAN CELL VOLUME 86.5 fl (80-96); MONO % 13.3 % (3.8-10.2); NEUT % 70.1 % (42.8-82.8); PLATELET COUNT 325 K/MM3 (134-434); RBC 3.96 M/mm3 (3.60-5.2); RDW 15.2 % (11.6-15.6); WHITE BLOOD COUNT 4.3 K/mm3 (4.0-10.0)
[2019-06-29] MEDS: DOCUSATE SODIUM 100 MG CAPSULE (FP) PO SCH (22:20)
[2019-06-29] MEDS: METOPROLOL TARTRATE 25 MG TABLET (FP) PO SCH (22:20)
[2019-06-29] MEDS: SENNOSIDES 8.6MG TABLET (FP) PO SCH (22:20)
[2019-06-29] MEDS: SODIUM CHLORIDE 1,000 ML IV SCH (22:21)
--- NOTE | 2019-06-29 23:05 | HP ---
Admitting History and Physical - Primary Care Physician PCP: Aretha Damon - Admission Chief Complaint: Hematuria History of Present Illness: 84 year old F with h/o Afib on eliquis and vitamin B12 def who was hospitalized in May 2019 for fall/syncope c/b rhabdomyolysis, trop leak, hydronephrosis, pleural effusions and incidental finding of liver lesion who presented to ED via EMS from [facility] on the afternoon of for evaluation due to gross hematuria x 1.5days. Patient is a poor historian and as per [place] records pt was being treated for UTI with levaquin, but she continued to experience symptoms as per daughter in-law of urianry frequency, anorexia and suprapubic tenderness. In ED: Vitals: BP 94/57, HR 68, T 97.7, RR 18 Point of care US revealed mild b/l hydronephrosis. CT abd/pelvis: Substantial stool in the distal colon and rectum with mild adjacent edema suggestive of stercoral proctocolitis. 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: Yes: Dementia Cardiovascular: Yes: AFIB Gastrointestinal: Yes: Constipation, Hiatal Hernia Reproductive: Yes: Postmenopausal ...: No Heme/Onc: Yes: B12 Deficiency - Past Surgical History Past Surgical History: Yes: None - Smoking History Smoking history: Current every day smoker Have you smoked in the past 12 months: Yes Aproximately how many cigarettes per day: 30 (1.5PPD x 60yrs) If you are a former smoker, when did you quit?: 03/2020 - Alcohol/Substance Use Hx Alcohol Use: No History of Substance Use: reports: None - Social History Usual Living Arrangement: Yes: Retirement ADL: Family Assistance Occupation: Retired History of Recent Travel: No Home Medications - Allergies Allergies/Adverse Reactions: Allergies Allergy/AdvReac Type Severity Reaction Status Date / Time Penicillins Allergy Mild Rash Verified 06/29/19 15:41 - Home Medications Home Medications: Ambulatory Orders Albuterol 2.5/Ipratropium 0.5 [Duoneb -] 1 amp NEB RQID amp 05/13/19 Apixaban [Eliquis -] 5 mg PO BID tablet 05/13/19 Aspirin [ASA -] 81 mg PO DAILY tab.chew 05/13/19 Metoprolol Tartrate [Lopressor -] 25 mg PO BID tablet 05/13/19 Acetaminophen 650 mg PO Q6H 06/29/19 Cyanocobalamin Vit B-12 Inj. [Vitamin B12 Injection -] 1,000 mcg IM ASDIR Polyvinyl Alcohol [Artificial Tears] 1 drop OD BID 06/29/19 levoFLOXacin 500 MG IVPB [Levaquin 500 mg Premixed Ivpb -] 500 mg IVPB DAILY Family Medical History Family History: Unable to Obtain (pt is a poor historian) Review of Systems - Review of Systems Constitutional: reports: Lethargy, Loss of Appetite, Weakness Eyes: reports: No Symptoms HENT: reports: No Symptoms Neck: reports: No Symptoms Cardiovascular: reports: No Symptoms Respiratory: reports: No Symptoms Gastrointestinal: reports: No Symptoms Genitourinary: reports: Frequency, Hematuria, Other (pelvic discomfort) Breasts: reports: No Symptoms Reported Musculoskeletal: reports: No Symptoms Integumentary: reports: No Symptoms Neurological: reports: Unsteady Gait, Weakness Endocrine: reports: No Symptoms Hematology/Lymphatic: reports: No Symptoms Psychiatric: reports: No Symptoms Physical Examination Vital Signs: Vital Signs Temperature 97.4 F L 06/29/19 15:06 Pulse Rate 74 06/29/19 18:53 Respiratory Rate 06/29/19 18:53 Blood Pressure 98/53 L 06/29/19 18:53 O2 Sat by Pulse Oximetry (%) 96 06/29/19 18:53 Constitutional: Yes: No Distress, Calm, Other (elderly Female) Eyes: Yes: Conjunctiva Clear, PERRL HENT: Yes: Atraumatic, Normocephalic, Other (dry mucous membranes) Neck: Yes: Trachea Midline, Tenderness Cardiovascular: Yes: Regular Rate and Rhythm Respiratory: Yes: Regular, CTA Bilaterally, Diminished (at the bases) Gastrointestinal: Yes: Normal Bowel Sounds, Soft, Abdomen, Obese Renal/: Yes: Melchor Present, Hematuria, Other (+ pelvic pain to palpation) Musculoskeletal: Yes: Muscle Weakness Extremities: Yes: WNL Edema: No Peripheral Pulses WNL: Yes Integumentary: Yes: WNL Neurological: Yes: Alert, Oriented ...Motor Strength: WNL Labs: CBC, BMP 06/29/19 20:02 06/29/19 16:03 Imaging - Results Chest X-ray: Image Reviewed (CXR 06/29/19 (my read) mild pulm congestion) Problem List - Problems (1) Prophylactic measure Assessment/Plan: SCDs holding Eliquis PT evaluation Code(s): Z29.9 - ENCOUNTER FOR PROPHYLACTIC MEASURES, UNSPECIFIED (2) Wilber hematuria Assessment/Plan: Urology consult placed Maintain melchor Melchor flush w/ 60ml saline as needed for large clots trend H/H d/c eliquis hold Aspirin x 7days awaiting Ucx- no abx prescribed Code(s): R31.0 - GROSS HEMATURIA (3) Afib Assessment/Plan: rate control with lopressor EKG PRN Code(s): I48.91 - UNSPECIFIED ATRIAL FIBRILLATION (4) Vitamin B 12 deficiency Assessment/Plan: vitamin B 12 100mcg daily check level with AM labs Code(s): E53.8 - DEFICIENCY OF OTHER SPECIFIED B GROUP VITAMINS Assessment/Plan Code status: Full Precautions: bleeding and fall precautions constipation - bowel regimen with senna and colace Nebs PRN wheezing/SOB Visit type - Emergency Visit Emergency Visit: Yes ED Registration Date: 06/29/19 Care time: The patient presented to the Emergency Department on the above date and was hospitalized for further evaluation of their emergent condition. - New Patient This patient is new to me today: Yes Date on this admission: 06/29/19 - Critical Care Critical Care patient: No
[2019-06-29] MEDS ORDERED: ALBUTEROL SO4 2.5/IPRATROPIUM 0.5 INH SOL 3 ML VIAL.NEB. NEB PRN (23:22)
[2019-06-29] MEDS: ARTIFICIAL TEARS (POLYVINYL ALCOHOL) OPTH DROPS OD SCH (23:43)
[2019-06-30] MEDS: ACETAMINOPHEN 325 MG TABLET (FP) PO SCH ×4 (00:59→21:28)
--- NOTE | 2019-06-30 08:23 | PN ---
Progress Note, Physician Chief Complaint: Hematuria Afib History of Present Illness: Previous notes and events reviewed awake and alert NAD pink tinged urine noted in FC denies chest pain or palpitations Hg stable UC pending - Current Medication List Current Medications: Active Medications Acetaminophen (Tylenol -) 650 mg PO Q6HPO [facility] Last Admin: 06/30/19 05:57 Dose: 650 mg Albuterol/Ipratropium (Duoneb -) 1 amp NEB Q6H PRN PRN Reason: SHORT OF BREATH/WHEEZING Artificial Tears (Artificial Tears) 1 drop OD BID [facility] Last Admin: 06/29/19 23:43 Dose: 1 drop Aspirin (Asa -) 81 mg PO DAILY [facility] Cyanocobalamin (Vitamin B12 -) 100 mcg PO DAILY [facility] Docusate Sodium (Colace -) 100 mg PO BID [facility] Last Admin: 06/29/19 22:20 Dose: 100 mg Sodium Chloride (Normal Saline -) 1,000 mls @ 42 mls/hr IV ASDIR [facility] Last Admin: 06/29/19 22:21 Dose: 42 mls/hr Metoprolol Tartrate (Lopressor -) 25 mg PO BID [facility] Last Admin: 06/29/19 22:20 Dose: 25 mg Senna (Senna -) 2 tab PO HS [facility] Last Admin: 06/29/19 22:20 Dose: 2 tab - Objective Vital Signs: Vital Signs Temperature 98.0 F 06/30/19 04:00 Pulse Rate 77 06/30/19 04:00 Respiratory Rate 18 06/30/19 04:00 Blood Pressure 108/54 L 06/30/19 04:00 O2 Sat by Pulse Oximetry (%) 95 06/29/19 22:00 Constitutional: Yes: No Distress, Calm Eyes: Yes: Conjunctiva Clear HENT: Yes: Atraumatic Cardiovascular: Yes: Regular Rate and Rhythm Respiratory: Yes: Regular, CTA Bilaterally Gastrointestinal: Yes: Normal Bowel Sounds, Soft Genitourinary: Yes: Jason Present Musculoskeletal: Yes: Muscle Weakness Extremities: Yes: WNL Edema: No Neurological: Yes: Alert, Oriented Psychiatric: Yes: Alert, Oriented Labs: CBC, BMP 06/29/19 20:02 06/29/19 16:03 INR, PTT INR 1.30 (0.83-1.09) H 06/29/19 16:03 - ....Imaging Chest X-ray: Report Reviewed Cat Scan: Pending Problem List - Problems (1) Wilber hematuria Assessment/Plan: Urology consult FC Eliquis and Aspirin on hold-Cardiology consult UC pending Hg stable at 11.3 flush FC with 60cc as needed if large clots Code(s): R31.0 - GROSS HEMATURIA (2) UTI (urinary tract infection) Assessment/Plan: UC pending Urology consult no leukocytosis afebrile Ceftriaxone given in ER Code(s): N39.0 - URINARY TRACT INFECTION, SITE NOT SPECIFIED Qualifiers: Urinary tract infection type: acute cystitis Hematuria presence: with hematuria Qualified Code(s): N30.01 - Acute cystitis with hematuria (3) Afib Assessment/Plan: Eliquis on hold due to hematuria Cardiology consult Metoprolol for rate control Code(s): I48.91 - UNSPECIFIED ATRIAL FIBRILLATION (4) Vitamin B 12 deficiency Assessment/Plan: Vitamin B12 daily Code(s): E53.8 - DEFICIENCY OF OTHER SPECIFIED B GROUP VITAMINS Assessment/Plan see problem list SCDs
[2019-06-30 08:43] LABS: BASO % 0.9 % (0-2.0); EOS % 2.6 % (0-4.5); HEMATOCRIT 31.7 % (32.4-45.2); HEMOGLOBIN 10.5 GM/dL (10.7-15.3); LYMPH % 22.1 % (8-40); MCH 28.4 pg (25.7-33.7); MCHC 33.1 g/dl (32.0-36.0); MEAN CELL VOLUME 85.7 fl (80-96); MONO % 13.9 % (3.8-10.2); NEUT % 60.5 % (42.8-82.8); PLATELET COUNT 304 K/MM3 (134-434); RDW 15.4 % (11.6-15.6); WHITE BLOOD COUNT 3.4 K/mm3 (4.0-10.0)
[2019-06-30 09:03] LABS: ALBUMIN 1.9 g/dl (3.4-5.0); BILIRUBIN,TOTAL 0.3 mg/dL (0.2-1); BLOOD UREA NITROGEN 7.5 mg/dL (7-18); CALCIUM 8.1 mg/dL (8.5-10.1); CREATININE 0.6 mg/dL (0.55-1.3); MAGNESIUM 2.1 mg/dL (1.8-2.4); PHOSPHOROUS 3.1 mg/dL (2.5-4.9); POTASSIUM 3.9 mmol/L (3.5-5.1); TOT PROT 5.2 g/dl (6.4-8.2)
[2019-06-30 09:19] LABS: INR 1.2 (0.83-1.09); PROTHROMBIN TIME (PATIENT) 14.2 SEC (9.7-13.0)
[2019-06-30 09:21] LABS: ACTIVATED PTT 29.8 SECONDS (25.2-36.5)
[2019-06-30] MEDS ORDERED: ASPIRIN 81 MG CHEWABLE TABLETS PO SCH (10:00)
--- NOTE | 2019-06-30 10:11 | CON.CARD ---
Consult Consult Specialty:: Cardiology Referred by:: Dr. Damon Reason for Consultation:: Management of AC - History of Present Illness Chief Complaint: " I fell" History of Present Illness: Poor historian: history is obtained from review of EMR "Samantha Guzman is an 84 yo F, recently discharged to [facility] 05/15/19, w a hx of A-fib on apixaban, falls and syncope, hydronephrosis, rhabdomyolysis and elevated trops, pleural effusions, a liver lesion, vitamin B12 deficiency, and an unsteady gait who presents to the [facility] er via [facility] because she has blood in her urine. Per the [place] papers patient has been experiencing hematuria for almost a month and is currently being treated for a UTI with levaquin. The daughter in law states the patient has experienced anorexia over the past month but has not lost any weight and has not been waking up in the middle of the night sweating. " She presently denies CP, SOB, palps. ECG: NSR 73bpm, Qtc: 464. 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 Cardio/Vascular: Yes: AFIB Gastrointestinal: Yes: Constipation, Hiatal Hernia ...: No - Past Surgical History Past Surgical History: Yes: None - Alcohol/Substance Use Hx Alcohol Use: No History of Substance Use: reports: None - Smoking History Smoking history: Current every day smoker Have you smoked in the past 12 months: Yes Aproximately how many cigarettes per day: 30 (1.5PPD x 60yrs) If you are a former smoker, when did you quit?: 03/2020 - Social History ADL: Family Assistance Occupation: Retired History of Recent Travel: No Home Medications - Allergies Allergies/Adverse Reactions: Allergies Allergy/AdvReac Type Severity Reaction Status Date / Time Penicillins Allergy Mild Rash Verified 06/29/19 15:41 - Home Medications Home Medications: Ambulatory Orders Albuterol 2.5/Ipratropium 0.5 [Duoneb -] 1 amp NEB RQID amp 05/13/19 Apixaban [Eliquis -] 5 mg PO BID tablet 05/13/19 Aspirin [ASA -] 81 mg PO DAILY tab.chew 05/13/19 Metoprolol Tartrate [Lopressor -] 25 mg PO BID tablet 05/13/19 Acetaminophen 650 mg PO Q6H 06/29/19 Cyanocobalamin Vit B-12 Inj. [Vitamin B12 Injection -] 1,000 mcg IM ASDIR Polyvinyl Alcohol [Artificial Tears] 1 drop OD BID 06/29/19 levoFLOXacin 500 MG IVPB [Levaquin 500 mg Premixed Ivpb -] 500 mg IVPB DAILY Family Medical History Family History: Unremarkable (non-contributory) Review of Systems Findings/Remarks: see HPI - Review of Systems Constitutional: reports: No Symptoms Eyes: reports: No Symptoms HENT: reports: No Symptoms Neck: reports: No Symptoms Cardiovascular: reports: No Symptoms Respiratory: reports: No Symptoms Gastrointestinal: reports: No Symptoms Genitourinary: reports: No Symptoms Breasts: reports: No Symptoms Reported Musculoskeletal: reports: No Symptoms Integumentary: reports: No Symptoms Neurological: reports: No Symptoms Endocrine: reports: No Symptoms Hematology/Lymphatic: reports: No Symptoms Psychiatric: reports: No Symptoms - Risk Factors Known Risk Factors: Yes: Age Vital Signs: Vital Signs Temperature 98.0 F 06/30/19 04:00 Pulse Rate 77 06/30/19 04:00 Respiratory Rate 18 06/30/19 04:00 Blood Pressure 108/54 L 06/30/19 04:00 O2 Sat by Pulse Oximetry (%) 95 06/29/19 22:00 Constitutional: Yes: No Distress, Calm Respiratory: Yes: CTA Bilaterally Gastrointestinal: Yes: Soft Renal/: Yes: Other (CULLEN IN PLACE) Cardiovascular: Yes: Regular Rate and Rhythm JVD: No Heart Sounds: Yes: S1, S2 (rrr, no M/R/G) Edema: No - Other Data Labs, Other Data: CBC, BMP 06/30/19 07:55 06/30/19 07:55 INR, PTT INR 1.20 (0.83-1.09) H 06/30/19 07:55 Imaging - Results Chest X-ray: Report Reviewed EKG: Image Reviewed Assessment/Plan IMP: Dementia History of falls. UTI with gross hematuria PAF with normal LVEF (echo here 05/2019) REC: -While the [id number] score warrants AC, she has a documented history of falls (see prior admission) and now is dealing with gross hematuria from a suspected UTI. -At this time, risks of full AC >> potential benefits. -Agree with holding AC to allow for evaluation. -Moving forward, full AC needs to be reconsidered in this patient with dementia/ falls. She does not seem to be an ideal candidate for full AC. Would likely use ASA 81mg daily, but will need to discuss all options with family -Suggest formal PT evaluation prior to d/c to evaluate gait and falls risk. Will follow.
[2019-06-30] MEDS ORDERED: PT OWN MED DRAWER 7, Y5N ONE (10:18)
[2019-06-30] MEDS: DOCUSATE SODIUM 100 MG CAPSULE (FP) PO SCH ×2 (10:29→21:31)
[2019-06-30] MEDS: METOPROLOL TARTRATE 25 MG TABLET (FP) PO SCH ×2 (10:29→21:31)
[2019-06-30] MEDS: ARTIFICIAL TEARS (POLYVINYL ALCOHOL) OPTH DROPS OD SCH ×2 (10:31→21:32)
[2019-06-30] MEDS: CYANOCOBALAMIN (VITAMIN B-12) 100 MCG TABLET PO SCH (10:31)
--- NOTE | 2019-06-30 12:01 | EKG ---
Test Reason : Blood Pressure : / mmHG Vent. Rate : 077 BPM Atrial Rate : 077 BPM P-R Int : 176 ms QRS Dur : 100 ms QT Int : 412 ms P-R-T Axes : 084 -21 052 degrees QTc Int : 466 ms NORMAL SINUS RHYTHM LOW VOLTAGE QRS CANNOT RULE OUT ANTERIOR INFARCT (CITED ON OR BEFORE 29-JUN-2019) ABNORMAL ECG WHEN COMPARED WITH ECG OF 29-JUN-2019 18:55, NO SIGNIFICANT CHANGE WAS FOUND Confirmed by HARVEY HENDRICKS MD ([id number]) on 06/30/2019 12:01:03 PM Referred By: Nakita GEE Confirmed By:HARVEY HENDRICKS MD
--- NOTE | 2019-06-30 12:08 | EKG ---
Test Reason : Blood Pressure : / mmHG Vent. Rate : 080 BPM Atrial Rate : 080 BPM P-R Int : 168 ms QRS Dur : 084 ms QT Int : 386 ms P-R-T Axes : 079 -35 062 degrees QTc Int : 445 ms POOR DATA QUALITY, INTERPRETATION MAY BE ADVERSELY AFFECTED NORMAL SINUS RHYTHM LEFT AXIS DEVIATION CANNOT RULE OUT ANTERIOR INFARCT , AGE UNDETERMINED ABNORMAL ECG Confirmed by HARVEY HENDRICKS MD ([id number]) on 06/30/2019 12:07:57 PM Referred By: Confirmed By:HARVEY HENDRICKS MD
[2019-06-30] MEDS: SENNOSIDES 8.6MG TABLET (FP) PO SCH (21:31)
[2019-07-01] MEDS: ACETAMINOPHEN 325 MG TABLET (FP) PO SCH ×5 (00:19→23:00)
[2019-07-01] MEDS: SODIUM CHLORIDE 1,000 ML IV SCH ×2 (06:04→19:30)
[2019-07-01 07:13] LABS: HEMATOCRIT 32.9 % (32.4-45.2); HEMOGLOBIN 10.8 GM/dL (10.7-15.3); MCH 28.7 pg (25.7-33.7); MCHC 32.8 g/dl (32.0-36.0); MEAN CELL VOLUME 87.5 fl (80-96); PLATELET COUNT 319 K/MM3 (134-434); RBC 3.76 M/mm3 (3.60-5.2); RDW 15.7 % (11.6-15.6); WHITE BLOOD COUNT 5.9 K/mm3 (4.0-10.0)
[2019-07-01 07:41] LABS: ALBUMIN 2.1 g/dl (3.4-5.0); BILIRUBIN,TOTAL 0.4 mg/dL (0.2-1); BLOOD UREA NITROGEN 6.7 mg/dL (7-18); CALCIUM 8.1 mg/dL (8.5-10.1); CREATININE 0.5 mg/dL (0.55-1.3); POTASSIUM 3.9 mmol/L (3.5-5.1); TOT PROT 5.3 g/dl (6.4-8.2)
[2019-07-01] MEDS ORDERED: PT OWN MED DRAWER 7, Y5N ONE (10:08)
[2019-07-01] MEDS: METOPROLOL TARTRATE 25 MG TABLET (FP) PO SCH ×2 (10:12→21:25)
[2019-07-01] MEDS: DOCUSATE SODIUM 100 MG CAPSULE (FP) PO SCH ×2 (10:12→21:24)
[2019-07-01] MEDS: CYANOCOBALAMIN (VITAMIN B-12) 100 MCG TABLET PO SCH (10:13)
[2019-07-01] MEDS: ARTIFICIAL TEARS (POLYVINYL ALCOHOL) OPTH DROPS OD SCH ×2 (10:14→21:26)
[2019-07-01 14:24] VITALS: BMI 20.9
--- NOTE | 2019-07-01 15:13 | CON.GU ---
Consult Consult Specialty:: urology Referred by:: Nelson Reason for Consultation:: gross hematuria - History of Present Illness Chief Complaint: gross hematuria History of Present Illness: 84 year old F with h/o Afib on eliquis and vitamin B12 def who was hospitalized in May 2019 for fall/syncope c/b rhabdomyolysis, trop leak, hydronephrosis, pleural effusions and incidental finding of liver lesion who presented to ED via EMS from [facility] [place] for evaluation due to gross hematuria x 1.5days. Patient is a poor historian. Patient was being treated for a uti and was on levaquing. - History Source History Provided By: Patient - Past Medical History [employer]: Yes: Dementia Cardio/Vascular: Yes: AFIB Gastrointestinal: Yes: Constipation, Hiatal Hernia ...: No - Past Surgical History Past Surgical History: Yes: None - Alcohol/Substance Use Hx Alcohol Use: No History of Substance Use: reports: None - Smoking History Smoking history: Current every day smoker Have you smoked in the past 12 months: Yes Aproximately how many cigarettes per day: 30 (1.5PPD x 60yrs) If you are a former smoker, when did you quit?: 03/2020 - Social History ADL: Family Assistance Occupation: Retired History of Recent Travel: No Home Medications - Allergies Allergies/Adverse Reactions: Allergies Allergy/AdvReac Type Severity Reaction Status Date / Time Penicillins Allergy Mild Rash Verified 06/29/19 15:41 - Home Medications Home Medications: Ambulatory Orders Albuterol 2.5/Ipratropium 0.5 [Duoneb -] 1 amp NEB RQID amp 05/13/19 Apixaban [Eliquis -] 5 mg PO BID tablet 05/13/19 Aspirin [ASA -] 81 mg PO DAILY tab.chew 05/13/19 Metoprolol Tartrate [Lopressor -] 25 mg PO BID tablet 05/13/19 Acetaminophen 650 mg PO Q6H 06/29/19 Cyanocobalamin Vit B-12 Inj. [Vitamin B12 Injection -] 1,000 mcg IM ASDIR Polyvinyl Alcohol [Artificial Tears] 1 drop OD BID 06/29/19 levoFLOXacin 500 MG IVPB [Levaquin 500 mg Premixed Ivpb -] 500 mg IVPB DAILY Physical Exam- Vital Signs: Vital Signs Temperature 97.8 F 07/01/19 08:05 Pulse Rate 77 03/02/20 08:05 Respiratory Rate 20 07/01/19 08:05 Blood Pressure 122/61 07/01/19 08:05 O2 Sat by Pulse Oximetry (%) 95 06/30/19 09:00 Constitutional: Yes: No Distress, Calm Eyes: Yes: WNL, Conjunctiva Clear, EOM Intact HENT: Yes: WNL, Atraumatic Neck: Yes: WNL, Supple, Trachea Midline Cardiovascular: Yes: Regular Rate and Rhythm Respiratory: Yes: Regular Gastrointestinal: Yes: WNL, Normal Bowel Sounds, Soft Renal/: Yes: WNL Kidneys: Yes: WNL Pelvis: Yes: WNL, Bladder Non Palpable (melchor draining yellow urine with debri) Labs: CBC, BMP 07/01/19 06:20 07/01/19 06:20 Imaging - Results Cat Scan: Report Reviewed (mild bilateral pelvocliectasis) Assessment/Plan imp gross hematuria s/p uti on eliquis mild bilateral hydronephrosis with normal renal function without evidence of colic plan would recommend d/c of melchor patient will be scheduled for a cystoscopy as an outpatient
--- NOTE | 2019-07-01 16:14 | PN ---
Progress Note (short form) - Note Progress Note: s: no chest pain, palps, dizziness, dyspnea Current Medications Acetaminophen (Tylenol -) 650 mg PO Q6HPO [facility] Last Admin: 07/01/19 13:06 Dose: 650 mg Albuterol/Ipratropium (Duoneb -) 1 amp NEB Q6H PRN PRN Reason: SHORT OF BREATH/WHEEZING Artificial Tears (Artificial Tears) 1 drop OD BID [facility] Last Admin: 07/01/19 10:14 Dose: 1 drop Aspirin (Asa -) 81 mg PO DAILY [facility] Last Admin: 06/30/19 10:29 Dose: 81 mg Cyanocobalamin (Vitamin B12 -) 100 mcg PO DAILY [facility] Last Admin: 07/01/19 10:13 Dose: 100 mcg Docusate Sodium (Colace -) 100 mg PO BID [facility] Last Admin: 07/01/19 10:12 Dose: 100 mg Sodium Chloride (Normal Saline -) 1,000 mls @ 42 mls/hr IV ASDIR [facility] Last Admin: 07/01/19 06:04 Dose: 42 mls/hr Metoprolol Tartrate (Lopressor -) 25 mg PO BID [facility] Last Admin: 07/01/19 10:12 Dose: 25 mg Senna (Senna -) 2 tab PO HS [facility] Last Admin: 06/30/19 21:31 Dose: 2 tab Vital Signs Period Temp Pulse Resp BP Sys/Guo Pulse Ox Last 24 Hr 97.3 F-98.8 F 68-77 20-20 99-122/58-69 Constitutional: Yes: No Distress, Calm Respiratory: Yes: CTA Bilaterally Gastrointestinal: Yes: Soft Cardiovascular: Yes: Regular Rate and Rhythm JVD: No Heart Sounds: Yes: S1, S2 (rrr, no M/R/G) Edema: No no jaundice, diaphoresis not agitated Imaging - Results Chest X-ray: Report Reviewed EKG: Image Reviewed Assessment/Plan IMP: Dementia History of falls. UTI with gross hematuria PAF with normal LVEF (echo here 05/2019) REC: - [id number] score warrants AC, she has a documented history of falls (see prior admission) and now is dealing with gross hematuria from a suspected UTI. - holding AC to allow for evaluation - anticoagulation needs to be discussed in this patient with dementia/falls as she may not be a candidate for AC - PT evaluation prior to d/c to evaluate gait and falls risk
--- NOTE | 2019-07-01 16:49 | PN ---
Progress Note, Physician Chief Complaint: hematuria History of Present Illness: 84 year old female with PMH afib, frequent falls, b12 deficiency, presents from [facility] for hematuria, being seen by cardiology and . - Current Medication List Current Medications: Active Medications Acetaminophen (Tylenol -) 650 mg PO Q6HPO [facility] Last Admin: 07/01/19 13:06 Dose: 650 mg Albuterol/Ipratropium (Duoneb -) 1 amp NEB Q6H PRN PRN Reason: SHORT OF BREATH/WHEEZING Artificial Tears (Artificial Tears) 1 drop OD BID [facility] Last Admin: 07/01/19 10:14 Dose: 1 drop Aspirin (Asa -) 81 mg PO DAILY [facility] Last Admin: 06/30/19 10:29 Dose: 81 mg Cyanocobalamin (Vitamin B12 -) 100 mcg PO DAILY [facility] Last Admin: 07/01/19 10:13 Dose: 100 mcg Docusate Sodium (Colace -) 100 mg PO BID [facility] Last Admin: 07/01/19 10:12 Dose: 100 mg Sodium Chloride (Normal Saline -) 1,000 mls @ 42 mls/hr IV ASDIR [facility] Last Admin: 07/01/19 06:04 Dose: 42 mls/hr Metoprolol Tartrate (Lopressor -) 25 mg PO BID [facility] Last Admin: 07/01/19 10:12 Dose: 25 mg Senna (Senna -) 2 tab PO HS [facility] Last Admin: 06/30/19 21:31 Dose: 2 tab - Objective Vital Signs: Vital Signs Temperature 97.7 F 07/01/19 14:00 Pulse Rate 71 07/01/19 14:00 Respiratory Rate 20 07/01/19 14:00 Blood Pressure 99/58 L 07/01/19 14:00 O2 Sat by Pulse Oximetry (%) 95 06/30/19 09:00 Constitutional: Yes: Well Nourished, No Distress HENT: Yes: Atraumatic, Normocephalic Neck: Yes: Supple Cardiovascular: Yes: Pulse Irregular Respiratory: Yes: Regular, CTA Bilaterally Gastrointestinal: Yes: Normal Bowel Sounds Genitourinary: Yes: Melchor Present Neurological: Yes: Alert Psychiatric: Yes: Alert Labs: CBC, BMP 07/01/19 06:20 07/01/19 06:20 INR, PTT INR 1.20 (0.83-1.09) H 06/30/19 07:55 Problem List - Problems (1) Wilber hematuria Assessment/Plan: eval appreciated remove melchor outpatient cystoscopy Code(s): R31.0 - GROSS HEMATURIA (2) Frequent falls Assessment/Plan: PT eval dispo likely back to [facility] Code(s): R29.6 - REPEATED FALLS (3) UTI (urinary tract infection) Assessment/Plan: urine culture no growth no antbx Code(s): N39.0 - URINARY TRACT INFECTION, SITE NOT SPECIFIED Qualifiers: Urinary tract infection type: acute cystitis Hematuria presence: with hematuria Qualified Code(s): N30.01 - Acute cystitis with hematuria (4) Afib Assessment/Plan: cardiology consult appreciated anticoagulation being held Code(s): I48.91 - UNSPECIFIED ATRIAL FIBRILLATION (5) Vitamin B 12 deficiency Assessment/Plan: monitor Code(s): E53.8 - DEFICIENCY OF OTHER SPECIFIED B GROUP VITAMINS
[2019-07-01] MEDS: SENNOSIDES 8.6MG TABLET (FP) PO SCH (21:25)
[2019-07-02] MEDS: ACETAMINOPHEN 325 MG TABLET (FP) PO SCH ×4 (05:05→23:06)
--- NOTE | 2019-07-02 07:50 | PN ---
Progress Note, Physician - Current Medication List Current Medications: Active Medications Acetaminophen (Tylenol -) 650 mg PO Q6HPO [facility] Last Admin: 07/02/19 05:05 Dose: 650 mg Albuterol/Ipratropium (Duoneb -) 1 amp NEB Q6H PRN PRN Reason: SHORT OF BREATH/WHEEZING Artificial Tears (Artificial Tears) 1 drop OD BID [facility] Last Admin: 07/01/19 21:26 Dose: 1 drop Aspirin (Asa -) 81 mg PO DAILY [facility] Last Admin: 06/30/19 10:29 Dose: 81 mg Cyanocobalamin (Vitamin B12 -) 100 mcg PO DAILY [facility] Last Admin: 07/01/19 10:13 Dose: 100 mcg Docusate Sodium (Colace -) 100 mg PO BID [facility] Last Admin: 07/01/19 21:24 Dose: 100 mg Sodium Chloride (Normal Saline -) 1,000 mls @ 42 mls/hr IV ASDIR [facility] Last Admin: 07/01/19 19:30 Dose: Not Given Metoprolol Tartrate (Lopressor -) 25 mg PO BID [facility] Last Admin: 07/01/19 21:25 Dose: 25 mg Senna (Senna -) 2 tab PO HS [facility] Last Admin: 07/01/19 21:25 Dose: 2 tab - Objective Vital Signs: Vital Signs Temperature 97.7 F 07/02/19 06:00 Pulse Rate 70 07/02/19 06:00 Respiratory Rate 20 07/02/19 06:00 Blood Pressure 123/53 L 07/02/19 06:00 O2 Sat by Pulse Oximetry (%) 96 07/01/19 21:00 Cardiovascular: Yes: Regular Rate and Rhythm Respiratory: Yes: Regular, CTA Bilaterally Gastrointestinal: Yes: Normal Bowel Sounds, Soft Genitourinary: Yes: Melchor Present Labs: CBC, BMP 07/01/19 06:20 07/01/19 06:20 INR, PTT INR 1.20 (0.83-1.09) H 06/30/19 07:55 Assessment/Plan - Problems (1) Wilber hematuria Assessment/Plan: due to anticoagulant use r/o cystitis follow labs hold benito hand appreciated remove melchor if able to urinate outpatient cystoscopy Code(s): R31.0 - GROSS HEMATURIA (2) Frequent falls Assessment/Plan: PT eval dispo likely back to [facility] Code(s): R29.6 - REPEATED FALLS (3) UTI (urinary tract infection) Assessment/Plan: urine culture no growth no antbx Code(s): N39.0 - URINARY TRACT INFECTION, SITE NOT SPECIFIED Qualifiers: Urinary tract infection type: acute cystitis Hematuria presence: with hematuria Qualified Code(s): N30.01 - Acute cystitis with hematuria (4) Afib Assessment/Plan: cardiology consult appreciated anticoagulation being held Code(s): I48.91 - UNSPECIFIED ATRIAL FIBRILLATION (5) Vitamin B 12 deficiency Assessment/Plan: monitor Code(s): E53.8 - DEFICIENCY OF OTHER SPECIFIED B GROUP VITAMINS
[2019-07-02 08:36] LABS: BASO % 0.6 % (0-2.0); EOS % 2.3 % (0-4.5); HEMATOCRIT 33.3 % (32.4-45.2); HEMOGLOBIN 10.8 GM/dL (10.7-15.3); LYMPH % 9.8 % (8-40); MCH 28.2 pg (25.7-33.7); MCHC 32.6 g/dl (32.0-36.0); MEAN CELL VOLUME 86.6 fl (80-96); MEAN PLT VOLUME 7.2 fl (7.5-11.1); NEUT % 79.3 % (42.8-82.8); PLATELET COUNT 308 K/MM3 (134-434); RBC 3.84 M/mm3 (3.60-5.2); RDW 15.9 % (11.6-15.6); WHITE BLOOD COUNT 6.5 K/mm3 (4.0-10.0)
[2019-07-02 08:47] LABS: BILIRUBIN,TOTAL 0.4 mg/dL (0.2-1); BLOOD UREA NITROGEN 7.4 mg/dL (7-18); CALCIUM 7.9 mg/dL (8.5-10.1); CREATININE 0.5 mg/dL (0.55-1.3); POTASSIUM 3.8 mmol/L (3.5-5.1); TOT PROT 5.3 g/dl (6.4-8.2)
[2019-07-02] MEDS ORDERED: PT OWN MED DRAWER 7, Y5N ONE (09:09)
[2019-07-02] MEDS: DOCUSATE SODIUM 100 MG CAPSULE (FP) PO SCH ×2 (09:14→21:26)
[2019-07-02] MEDS: METOPROLOL TARTRATE 25 MG TABLET (FP) PO SCH ×2 (09:14→21:26)
[2019-07-02] MEDS: CYANOCOBALAMIN (VITAMIN B-12) 100 MCG TABLET PO SCH (09:14)
[2019-07-02] MEDS: ARTIFICIAL TEARS (POLYVINYL ALCOHOL) OPTH DROPS OD SCH ×2 (09:15→21:24)
--- NOTE | 2019-07-02 12:54 | PN ---
Progress Note (short form) - Note Progress Note: s: no chest pain, palps, dizziness, dyspnea Current Medications Acetaminophen (Tylenol -) 650 mg PO Q6HPO [facility] Last Admin: 07/02/19 11:09 Dose: 650 mg Albuterol/Ipratropium (Duoneb -) 1 amp NEB Q6H PRN PRN Reason: SHORT OF BREATH/WHEEZING Artificial Tears (Artificial Tears) 1 drop OD BID [facility] Last Admin: 07/02/19 09:15 Dose: 1 drop Aspirin (Asa -) 81 mg PO DAILY [facility] Last Admin: 06/30/19 10:29 Dose: 81 mg Cyanocobalamin (Vitamin B12 -) 100 mcg PO DAILY [facility] Last Admin: 07/02/19 09:14 Dose: 100 mcg Docusate Sodium (Colace -) 100 mg PO BID [facility] Last Admin: 07/02/19 09:14 Dose: 100 mg Sodium Chloride (Normal Saline -) 1,000 mls @ 42 mls/hr IV ASDIR [facility] Last Admin: 07/01/19 19:30 Dose: Not Given Metoprolol Tartrate (Lopressor -) 25 mg PO BID [facility] Last Admin: 07/02/19 09:14 Dose: 25 mg Senna (Senna -) 2 tab PO HS [facility] Last Admin: 07/01/19 21:25 Dose: 2 tab Vital Signs Period Temp Pulse Resp BP Sys/Guo Pulse Ox Last 24 Hr 97.5 F-98.1 F 70-74 18-20 96-123/52-62 96 Constitutional: Yes: No Distress, Calm Respiratory: Yes: CTA Bilaterally Gastrointestinal: Yes: Soft Cardiovascular: Yes: Regular Rate and Rhythm JVD: No Heart Sounds: Yes: S1, S2 (rrr, no M/R/G) Edema: No no jaundice, diaphoresis not agitated Imaging - Results Chest X-ray: Report Reviewed EKG: Image Reviewed Assessment/Plan IMP: Dementia History of falls. UTI with gross hematuria PAF with normal LVEF (echo here 05/2019) REC: - [id number] score warrants AC, she has a documented history of falls (see prior admission) and now is dealing with gross hematuria from a suspected UTI. - holding AC to allow for evaluation - anticoagulation needs to be discussed in this patient with dementia/falls as she may not be a candidate for AC - PT evaluation prior to d/c to evaluate gait and falls risk, may benefit from rehab
[2019-07-02] MEDS: SENNOSIDES 8.6MG TABLET (FP) PO SCH (21:26)
[2019-07-02] MEDS: SODIUM CHLORIDE 1,000 ML IV SCH ×2 (21:27→21:28)
[2019-07-03] MEDS: ACETAMINOPHEN 325 MG TABLET (FP) PO SCH ×4 (05:48→23:52)
[2019-07-03] MEDS ORDERED: PT OWN MED DRAWER 7, Y5N ONE (09:22)
[2019-07-03] MEDS: CYANOCOBALAMIN (VITAMIN B-12) 100 MCG TABLET PO SCH (09:38)
[2019-07-03] MEDS: METOPROLOL TARTRATE 25 MG TABLET (FP) PO SCH ×2 (09:38→22:48)
[2019-07-03] MEDS: ARTIFICIAL TEARS (POLYVINYL ALCOHOL) OPTH DROPS OD SCH ×2 (09:38→22:48)
[2019-07-03] MEDS: DOCUSATE SODIUM 100 MG CAPSULE (FP) PO SCH ×2 (09:38→22:47)
--- NOTE | 2019-07-03 10:29 | PN ---
Progress Note, Physician Chief Complaint: UTI Hematuria - Current Medication List Current Medications: Active Medications Acetaminophen (Tylenol -) 650 mg PO Q6HPO [facility] Last Admin: 07/03/19 05:48 Dose: 650 mg Albuterol/Ipratropium (Duoneb -) 1 amp NEB Q6H PRN PRN Reason: SHORT OF BREATH/WHEEZING Artificial Tears (Artificial Tears) 1 drop OD BID [facility] Last Admin: 07/03/19 09:38 Dose: 1 drop Aspirin (Asa -) 81 mg PO DAILY [facility] Last Admin: 06/30/19 10:29 Dose: 81 mg Cyanocobalamin (Vitamin B12 -) 100 mcg PO DAILY [facility] Last Admin: 07/03/19 09:38 Dose: 100 mcg Docusate Sodium (Colace -) 100 mg PO BID [facility] Last Admin: 07/03/19 09:38 Dose: 100 mg Sodium Chloride (Normal Saline -) 1,000 mls @ 42 mls/hr IV ASDIR [facility] Last Admin: 07/02/19 21:28 Dose: 42 mls/hr Metoprolol Tartrate (Lopressor -) 25 mg PO BID [facility] Last Admin: 07/03/19 09:38 Dose: 25 mg Senna (Senna -) 2 tab PO HS [facility] Last Admin: 07/02/19 21:26 Dose: 2 tab - Objective Vital Signs: Vital Signs Temperature 97.8 F 07/03/19 09:00 Pulse Rate 67 07/03/19 09:00 Respiratory Rate 18 07/03/19 09:00 Blood Pressure 133/69 07/03/19 09:00 O2 Sat by Pulse Oximetry (%) 97 07/02/19 21:00 Constitutional: Yes: Well Nourished, No Distress, Calm Cardiovascular: Yes: Regular Rate and Rhythm Respiratory: Yes: Regular, CTA Bilaterally Gastrointestinal: Yes: Normal Bowel Sounds, Soft Genitourinary: Yes: Melchor Present Musculoskeletal: Yes: Muscle Weakness Extremities: Yes: WNL Edema: No Peripheral Pulses WNL: Yes Neurological: Yes: Alert, Pre-Existing Deficit Psychiatric: Yes: Alert Labs: CBC, BMP 07/02/19 07:30 07/02/19 07:30 INR, PTT INR 1.20 (0.83-1.09) H 06/30/19 07:55 Problem List - Problems (1) Wilber hematuria Assessment/Plan: -resolved -Melchor draining clear yellow urine -resume AC Problems reviewed: Yes Code(s): R31.0 - GROSS HEMATURIA (2) Frequent falls Assessment/Plan: -2/2 to B12 def -Needs SNF -PT on board, walked 20 ft Problems reviewed: Yes Code(s): R29.6 - REPEATED FALLS (3) UTI (urinary tract infection) Assessment/Plan: -UC is negative -afebrile -off abx Problems reviewed: Yes Code(s): N39.0 - URINARY TRACT INFECTION, SITE NOT SPECIFIED (4) Vitamin B 12 deficiency Problems reviewed: Yes Code(s): E53.8 - DEFICIENCY OF OTHER SPECIFIED B GROUP VITAMINS (5) Urinary retention Assessment/Plan: -Given melchor trial yesterday but was not tamsulosin -Will start pt on tamsulosin today -Voiding trial in AM, if retaining >300 ml after 8-10 hours, will need to re- insert melchor and keep it. Problems reviewed: Yes Code(s): R33.9 - RETENTION OF URINE, UNSPECIFIED Assessment/Plan Spoke to daughter in law Ms Robertson Plan to go back to [facility] when ready for discharge.
[2019-07-03] MEDS: TAMSULOSIN HCL 0.4 MG CAP PO SCH (10:40)
--- NOTE | 2019-07-03 14:10 | PN ---
Progress Note (short form) - Note Progress Note: s: no chest pain, palps, dizziness, dyspnea Current Medications Generic Name Dose Route Start Last Admin Trade Name Freq PRN Reason Stop Dose Admin Acetaminophen 650 mg 06/30/19 00:00 07/03/19 11:28 Tylenol - PO Not Given Q6HPO [facility] Albuterol/Ipratropium 1 amp 06/29/19 23:22 Duoneb - NEB Q6H PRN SHORT OF BREATH/WHEEZING Apixaban 5 mg 07/03/19 22:00 Eliquis - PO BID [facility] Artificial Tears 1 drop 06/29/19 22:00 07/03/19 09:38 Artificial Tears OD 1 drop BID [facility] Administration Aspirin 81 mg 06/30/19 10:00 06/30/19 10:29 Asa - PO 81 mg DAILY [facility] Administration Cyanocobalamin 100 mcg 06/30/19 10:00 07/03/19 09:38 Vitamin B12 - PO 100 mcg DAILY [facility] Administration Docusate Sodium 100 mg 06/29/19 22:00 07/03/19 09:38 Colace - PO 100 mg BID [facility] Administration Sodium Chloride 1,000 mls @ 42 mls/hr 06/29/19 19:15 07/02/19 21:28 Normal Saline - IV 42 mls/hr ASDIR [facility] Administration Metoprolol Tartrate 25 mg 06/29/19 22:00 07/03/19 09:38 Lopressor - PO 25 mg BID [facility] Administration Senna 2 tab 06/29/19 22:00 07/02/19 21:26 Senna - PO 2 tab HS [facility] Administration Tamsulosin HCl 0.4 mg 07/03/19 08:30 07/03/19 10:40 Flomax - PO 0.4 mg DAILY@0830 [facility] Administration Vital Signs Period Temp Pulse Resp BP Sys/Guo Pulse Ox Last 24 Hr 97.8 F-98.1 F 67-80 18-20 105-133/55-74 97 Constitutional: Yes: No Distress, Calm Respiratory: Yes: CTA Bilaterally Gastrointestinal: Yes: Soft Cardiovascular: Yes: Regular Rate and Rhythm JVD: No Heart Sounds: Yes: S1, S2 (rrr, no M/R/G) Edema: No no jaundice, diaphoresis not agitated CBC, BMP 07/02/19 07:30 07/02/19 07:30 Imaging - Results Chest X-ray: Report Reviewed EKG: Image Reviewed Assessment/Plan IMP: Dementia History of falls. UTI with gross hematuria PAF with normal LVEF (echo here 05/2019) REC: - [id number] score warrants AC, she has been on eliquis - PT evaluation prior to d/c to evaluate gait and falls risk given continued use of AC.
[2019-07-03] MEDS: APIXABAN 5 MG TABLET PO SCH (22:47)
[2019-07-03] MEDS: SENNOSIDES 8.6MG TABLET (FP) PO SCH (22:47)
[2019-07-03] MEDS: SODIUM CHLORIDE 1,000 ML IV SCH (22:49)
[2019-07-04 07:16] VITALS: TEMP 97.8
[2019-07-04] MEDS: ACETAMINOPHEN 325 MG TABLET (FP) PO SCH ×3 (07:34→17:21)
[2019-07-04] MEDS: TAMSULOSIN HCL 0.4 MG CAP PO SCH (08:59)
[2019-07-04] MEDS ORDERED: PT OWN MED DRAWER 7, Y5N ONE (10:03)
[2019-07-04] MEDS: METOPROLOL TARTRATE 25 MG TABLET (FP) PO SCH (10:07)
[2019-07-04] MEDS: DOCUSATE SODIUM 100 MG CAPSULE (FP) PO SCH (10:07)
[2019-07-04] MEDS: APIXABAN 5 MG TABLET PO SCH (10:07)
[2019-07-04] MEDS: CYANOCOBALAMIN (VITAMIN B-12) 100 MCG TABLET PO SCH (10:07)
[2019-07-04] MEDS: ARTIFICIAL TEARS (POLYVINYL ALCOHOL) OPTH DROPS OD SCH (10:13)
--- NOTE | 2019-07-04 11:19 | DS ---
Physical Examination Vital Signs: Vital Signs Temperature 97.8 F 07/04/19 06:00 Pulse Rate 74 07/04/19 06:00 Respiratory Rate 18 07/04/19 06:00 Blood Pressure 110/66 07/04/19 06:00 O2 Sat by Pulse Oximetry (%) 94 L 07/03/19 21:00 Findings/Remarks: Laboratory Last Values WBC 6.5 K/mm3 (4.0-10.0) 07/02/19 07:30 RBC 3.84 M/mm3 (3.60-5.2) 07/02/19 07:30 Hgb 10.8 GM/dL (10.7-15.3) 07/02/19 07:30 Hct 33.3 % (32.4-45.2) 07/02/19 07:30 MCV 86.6 fl (80-96) 07/02/19 07:30 MCH 28.2 pg (25.7-33.7) 07/02/19 07:30 MCHC 32.6 g/dl (32.0-36.0) 07/02/19 07:30 RDW 15.9 % (11.6-15.6) H 07/02/19 07:30 Plt Count 308 K/MM3 (134-434) 07/02/19 07:30 MPV 7.2 fl (7.5-11.1) L 07/02/19 07:30 Absolute Neuts (auto) 5.1 K/mm3 (1.5-8.0) 07/02/19 07:30 Neutrophils % 79.3 % (42.8-82.8) D 07/02/19 07:30 Lymphocytes % 9.8 % (8-40) D 07/02/19 07:30 Monocytes % 8.0 % (3.8-10.2) 07/02/19 07:30 Eosinophils % 2.3 % (0-4.5) 07/02/19 07:30 Basophils % 0.6 % (0-2.0) 07/02/19 07:30 Nucleated RBC % 0 % (0-0) 07/02/19 07:30 PT with INR 14.20 SEC (9.7-13.0) H 06/30/19 07:55 INR 1.20 (0.83-1.09) H 06/30/19 07:55 PTT (Actin FS) 29.8 SECONDS (25.2-36.5) 06/30/19 07:55 Sodium 143 mmol/L (136-145) 07/02/19 07:30 Potassium 3.8 mmol/L (3.5-5.1) 07/02/19 07:30 Chloride 112 mmol/L (98-107) H 07/02/19 07:30 Carbon Dioxide 25 mmol/L (21-32) 07/02/19 07:30 Anion Gap 6 MMOL/L (8-16) L 07/02/19 07:30 BUN 7.4 mg/dL (7-18) 07/02/19 07:30 Creatinine 0.5 mg/dL (0.55-1.3) L 07/02/19 07:30 Est GFR (CKD-EPI)AfAm 103.73 07/02/19 07:30 Est GFR (CKD-EPI)NonAf 89.50 07/02/19 07:30 Random Glucose 73 mg/dL (74-106) L 07/02/19 07:30 Hemoglobin A1c % 5.4 % (4.2-6.3) 06/30/19 07:55 Calcium 7.9 mg/dL (8.5-10.1) L 07/02/19 07:30 Phosphorus 3.1 mg/dL (2.5-4.9) 06/30/19 07:55 Magnesium 2.1 mg/dL (1.8-2.4) 06/30/19 07:55 Total Bilirubin 0.4 mg/dL (0.2-1) 07/02/19 07:30 AST 13 U/L (15-37) L 07/02/19 07:30 ALT 13 U/L (13-61) 07/02/19 07:30 Alkaline Phosphatase 102 U/L (45-117) 07/02/19 07:30 Creatine Kinase 47 U/L (26-192) 06/29/19 16:03 Total Protein 5.3 g/dl (6.4-8.2) L 07/02/19 07:30 Albumin 2.0 g/dl (3.4-5.0) L 07/02/19 07:30 Vitamin B12 1610 pg/ml (193-986) H 06/30/19 07:55 Urine Color Red 06/29/19 16:03 Urine Appearance Turbid 06/29/19 16:03 Urine pH No Result Required. 06/29/19 16:03 Ur Specific [place] No Result Required. 06/29/19 16:03 Urine Protein No Result Required. 06/29/19 16:03 Urine Glucose (UA) No Result Required. 06/29/19 16:03 Urine Ketones No Result Required. 06/29/19 16:03 Urine Blood No Result Required. 06/29/19 16:03 Urine Nitrite No Result Required. 06/29/19 16:03 Urine Bilirubin No Result Required. 06/29/19 16:03 Urine Urobilinogen No Result Required. 06/29/19 16:03 Ur Leukocyte Esterase No Result Required. 06/29/19 16:03 Urine WBC (Auto) 5-10 /hpf (0-5) 06/29/19 16:03 Urine RBC (Auto) >200 /hpf (0-4) 06/29/19 16:03 Urine Casts (Auto) 0 /lpf (0-8) 06/29/19 16:03 U Epithel Cells (Auto) 0 /HPF (0-5/HPF) 06/29/19 16:03 Urine Bacteria (Auto) Moderate /hpf (NEGATIVE) 06/29/19 16:03 Blood Type B POSITIVE 06/29/19 16:03 Antibody Screen Negative 06/29/19 16:03 Home Medication List Medication Instructions Recorded Confirmed Type Acetaminophen 650 mg PO Q6H 06/29/19 06/29/19 History Cyanocobalamin Vit B-12 Inj. 1,000 mcg IM ASDIR 06/29/19 06/29/19 History [Vitamin B12 Injection -] Polyvinyl Alcohol [Artificial 1 drop OD BID 06/29/19 06/29/19 History Tears] levoFLOXacin 500 MG IVPB [Levaquin 500 mg IVPB DAILY 06/29/19 06/29/19 History 500 mg Premixed Ivpb -] Active Medications Generic Name Dose Route Start Last Admin Trade Name Freq PRN Reason Stop Dose Admin Acetaminophen 650 mg 06/30/19 00:00 07/04/19 07:34 Tylenol - PO Not Given Q6HPO CHON Albuterol/Ipratropium 1 amp 06/29/19 23:22 Duoneb - NEB Q6H PRN SHORT OF BREATH/WHEEZING Apixaban 5 mg 07/03/19 22:00 07/04/19 10:07 Eliquis - PO 5 mg BID CHON Administration Artificial Tears 1 drop 06/29/19 22:00 07/04/19 10:13 Artificial Tears OD 1 drop BID CHON Administration Aspirin 81 mg 06/30/19 10:00 06/30/19 10:29 Asa - PO 81 mg DAILY CHON Administration Cyanocobalamin 100 mcg 06/30/19 10:00 07/04/19 10:07 Vitamin B12 - PO 100 mcg DAILY CHON Administration Docusate Sodium 100 mg 06/29/19 22:00 07/04/19 10:07 Colace - PO 100 mg BID CHON Administration Sodium Chloride 1,000 mls @ 42 mls/hr 06/29/19 19:15 07/03/19 22:49 Normal Saline - IV Not Given ASDIR [facility] Metoprolol Tartrate 25 mg 06/29/19 22:00 07/04/19 10:07 Lopressor - PO 25 mg BID CHON Administration Senna 2 tab 06/29/19 22:00 07/03/19 22:47 Senna - PO 2 tab HS CHON Administration Tamsulosin HCl 0.4 mg 07/03/19 08:30 07/04/19 08:59 Flomax - PO 0.4 mg DAILY@0830 CHON Administration Microbiology 06/29/19 16:03 Urine - Urine - Catheterized Urine Culture - Final NO GROWTH OBTAINED Constitutional: Yes: No Distress, Calm Eyes: Yes: Conjunctiva Clear HENT: Yes: Atraumatic Cardiovascular: Yes: Regular Rate and Rhythm Respiratory: Yes: Regular, CTA Bilaterally Gastrointestinal: Yes: Normal Bowel Sounds, Soft Musculoskeletal: Yes: Muscle Weakness Extremities: Yes: WNL Edema: No Neurological: Yes: Alert Psychiatric: Yes: Alert Labs: CBC, BMP 07/02/19 07:30 07/02/19 07:30 Discharge Summary Problems reviewed: Yes Reason For Visit: URINARY TRACT INFECTION GROSS HEMATURIA HEMMORRHAG Current Active Problems Anticoagulated (Acute) Wilber hematuria (Acute) Frequent falls (Acute) Hemorrhagic cystitis (Acute) Prophylactic measure (Acute) UTI (urinary tract infection) (Acute) UTI (urinary tract infection) (Acute) Urinary retention (Acute) Hospital Course: 84 year old F with h/o Afib on eliquis and vitamin B12 def who was hospitalized in May 2019 for fall/syncope c/b rhabdomyolysis, trop leak, hydronephrosis, pleural effusions and incidental finding of liver lesion who [facility] for evaluation due to gross hematuria x 1.5days. Patient is a poor historian and as per [place] records pt was being treated for UTI with levaquin, but she continued to experience symptoms as per daughter in-law of urianry frequency, anorexia and suprapubic tenderness. Patient was evaluated by Urology and started on Flomax. AC was held due to hematuria and cardiology consulted. After hematuria cleared restarted on AC. Labs are stable. FC removed and will discharge back to SNF if able to void on own. Condition: Stable - Instructions Diet, Activity, Other Instructions: Follow up with PCP in 2 weeks of discharge Follow up with Urology Dr Hannah for follow up with urine retention continue with Flomax daily return to ER if develop severe pain, respiratory distress, ches tpain, palpitations Referrals: Aretha Damon MD [Primary Care Provider] - Stewart Hannah MD [Staff Physician] - Disposition: [facility] - Home Medications Comprehensive Discharge Medication List: Ambulatory Orders Albuterol 2.5/Ipratropium 0.5 [Duoneb -] 1 amp NEB RQID amp 05/13/19 Apixaban [Eliquis -] 5 mg PO BID tablet 05/13/19 Aspirin [ASA -] 81 mg PO DAILY tab.chew 05/13/19 Metoprolol Tartrate [Lopressor -] 25 mg PO BID tablet 05/13/19 Acetaminophen 650 mg PO Q6H 06/29/19 Cyanocobalamin Vit B-12 Inj. [Vitamin B12 Injection -] 1,000 mcg IM ASDIR 06/29/19 Polyvinyl Alcohol [Artificial Tears] 1 drop OD BID 06/29/19 levoFLOXacin 500 MG IVPB [Levaquin 500 mg Premixed Ivpb -] 500 mg IVPB DAILY 06/29/19
--- NOTE | 2019-07-04 11:32 | PN ---
Progress Note (short form) - Note Progress Note: s: no chest pain, palps, dizziness, dyspnea Current Medications Generic Name Dose Route Start Last Admin Trade Name Freq PRN Reason Stop Dose Admin Acetaminophen 650 mg 06/30/19 00:00 07/04/19 07:34 Tylenol - PO Not Given Q6HPO CHON Albuterol/Ipratropium 1 amp 06/29/19 23:22 Duoneb - NEB Q6H PRN SHORT OF BREATH/WHEEZING Apixaban 5 mg 07/03/19 22:00 07/04/19 10:07 Eliquis - PO 5 mg BID CHON Administration Artificial Tears 1 drop 06/29/19 22:00 07/04/19 10:13 Artificial Tears OD 1 drop BID CHON Administration Aspirin 81 mg 06/30/19 10:00 06/30/19 10:29 Asa - PO 81 mg DAILY CHON Administration Cyanocobalamin 100 mcg 06/30/19 10:00 07/04/19 10:07 Vitamin B12 - PO 100 mcg DAILY CHON Administration Docusate Sodium 100 mg 06/29/19 22:00 07/04/19 10:07 Colace - PO 100 mg BID CHON Administration Sodium Chloride 1,000 mls @ 42 mls/hr 06/29/19 19:15 07/03/19 22:49 Normal Saline - IV Not Given ASDIR [facility] Metoprolol Tartrate 25 mg 06/29/19 22:00 07/04/19 10:07 Lopressor - PO 25 mg BID CHON Administration Senna 2 tab 06/29/19 22:00 07/03/19 22:47 Senna - PO 2 tab HS CHON Administration Tamsulosin HCl 0.4 mg 07/03/19 08:30 07/04/19 08:59 Flomax - PO 0.4 mg DAILY@0830 CHON Administration Vital Signs Period Temp Pulse Resp BP Sys/Guo Pulse Ox Last 24 Hr 97.5 F-97.8 F 74-86 18-20 107-118/64-77 94 Constitutional: Yes: No Distress, Calm Respiratory: Yes: CTA Bilaterally Gastrointestinal: Yes: Soft Cardiovascular: Yes: Regular Rate and Rhythm JVD: No Heart Sounds: Yes: S1, S2 (rrr, no M/R/G) Edema: No no jaundice, diaphoresis not agitated CBC, BMP 07/02/19 07:30 07/02/19 07:30 Imaging - Results Chest X-ray: Report Reviewed EKG: Image Reviewed Assessment/Plan IMP: Dementia History of falls. UTI with gross hematuria PAF with normal LVEF (echo here 05/2019) REC: - [id number] score warrants AC, she has been on eliquis - cardiac sánchez stable
[2019-07-04 15:39] VITALS: BP 102/61; PULSE 70
== END 2019-07-04 18:11 | DRG 813 ==
LOC: JER 14:48 → JERBED 18:15 → J8W 21:03
PROVIDERS: ADMIT Family Medicine; ATTEND Family Medicine
DX: D68.32 Hemorrhagic disorder due to extrinsic circulating anticoagulants (principal); N30.01 Acute cystitis with hematuria; M62.82 Rhabdomyolysis; N13.30 Unspecified hydronephrosis; N28.1 Cyst of kidney, acquired; K76.9 Liver disease, unspecified; E53.8 Deficiency of other specified B group vitamins; R26.81 Unsteadiness on feet; F03.90 Unspecified dementia, unspecified severity, without behavioral disturbance, psychotic disturbance, mood disturbance, and anxiety; K59.09 Other constipation; K44.9 Diaphragmatic hernia without obstruction or gangrene; R55 Syncope and collapse; I48.0 Paroxysmal atrial fibrillation; R29.6 Repeated falls; R33.9 Retention of urine, unspecified; R63.0 Anorexia; Z68.21 Body mass index [BMI] 21.0-21.9, adult
CPT/HCPCS: 36415; 71045-TC-FY; 74176-TC; 76775; 80053; 81003; 82550; 82607; 83036; 83735; 84100; 85025; 85027; 85610; 85730; 86850; 86900; 86901; 87086; 93005; 93010; 97116-GP; 97161-GP; 99285-25; J7030

== ENCOUNTER 2019-07-06 21:20 | Emergency (ER) | payer OTHER, BC ==
[2019-07-06 21:40] VITALS: TEMP 97; BMI 27.4
--- NOTE | 2019-07-06 22:04 | PDOC ---
Attending Attestation - Resident Resident Name: Krunal Griffin - ED Attending Attestation I have performed the following: I have examined & evaluated the patient, The case was reviewed & discussed with the resident, I agree w/resident's findings & plan - HPI HPI: 07/06/19 23:11 Pt comes with hematuria SHe has had this in the past. Related to her eliquis for afib. Pt is being worked up by her docs. Pt wants to change her docs, as they have not gotten anywhere with her care. - Physicial Exam PE: 07/07/19 00:46 Agree with resident exam Pt has no abd pain She has no spuprapubic or flank pain and no fever She is stable for discharge - Medical Decision Making 07/07/19 00:30 Patient Name: NEO NAIR THIS IS A PRELIMINARY REPORT FROM [facility] DATE OF SERVICE: 2019-07-06 23:39:53 IMAGES: 23 EXAM: Ultrasound of the urinary bladder HISTORY: Rule out bladder cancer COMPARISON: None. FINDINGS: No detectable bladder masses.. However for more accurate radiologic a Jason catheter is in the urinary bladder. This could obscure small bladder. If bladder neoplasm is still suspected then further investigation is recommended.
[2019-07-06 22:32] LABS: BASO % 1.2 % (0-2.0); HEMATOCRIT 30.7 % (32.4-45.2); HEMOGLOBIN 10.3 GM/dL (10.7-15.3); LYMPH % 19.8 % (8-40); MCH 29.1 pg (25.7-33.7); MCHC 33.5 g/dl (32.0-36.0); MEAN CELL VOLUME 86.9 fl (80-96); MEAN PLT VOLUME 7.2 fl (7.5-11.1); MONO % 10.5 % (3.8-10.2); NEUT % 65.5 % (42.8-82.8); PLATELET COUNT 269 K/MM3 (134-434); RBC 3.54 M/mm3 (3.60-5.2); RDW 16.8 % (11.6-15.6); WHITE BLOOD COUNT 4.7 K/mm3 (4.0-10.0)
[2019-07-06 22:45] LABS: INR 1.27 (0.83-1.09)
--- NOTE | 2019-07-06 22:46 | PDOC ---
History of Present Illness - General Chief Complaint: Hematuria Stated Complaint: SICK Time Seen by Provider: 07/06/19 21:41 History Source: Patient, Family (daughter in law) Exam Limitations: No Limitations - History of Present Illness Initial Comments: 07/06/19 21:58 84 yo female pmh of A-fib on apixaban, falls and syncope, hydronephrosis, rhabdomyolysis and elevated trops, pleural effusions, a liver lesion, vitamin B12 deficiency, unsteady gait and recent DC from [facility] 06/29/2019 for hematuria and UTI presents to the ED with hematuria. Daughter in law present in the ED and helps provide HPI. Yony blood noted in melchor catheter yesterday. During hospital course, apixaban stopped and bleeding resolved, Urology, Dr. Jose bowen recommended outpatient cystoscopy, pt has not yet had this procedure done. Pt denies any new symptoms including abdominal pain, abdominal distension, F/C/N?V, weakness/, lightheadedness, CP, SOB, back pain, changes in bowel habits. Past History - Past Medical History Allergies/Adverse Reactions: Allergies Allergy/AdvReac Type Severity Reaction Status Date / Time Penicillins Allergy Mild Rash Verified 07/06/19 21:38 Home Medications: Ambulatory Orders Albuterol 2.5/Ipratropium 0.5 [Duoneb -] 1 amp NEB RQID amp 05/13/19 Aspirin [ASA -] 81 mg PO DAILY tab.chew 05/13/19 Metoprolol Tartrate [Lopressor -] 25 mg PO BID tablet 05/13/19 Acetaminophen 650 mg PO Q6H 06/29/19 Apixaban [Eliquis -] 5 mg PO BID tablet 07/04/19 Docusate Sodium [Colace -] 100 mg PO BID capsule 07/04/19 Sennosides [Senna -] 2 tab PO HS tablet 07/04/19 Tamsulosin HCl [Flomax -] 0.4 mg PO DAILY@0830 cap.er.24h 07/04/19 Dextran 70/Hypromellose [Artificial Tears] 1 each OP DAILY 07/06/19 Anemia: Yes (vitamin B 12 def) Cardiac Disorders: Yes (A Fib, atherosclerotic heart) COPD: Yes Dementia: Yes GI Disorders: Yes (hiatal hernia) HTN: Yes - Psycho Social/Smoking Cessation Hx Smoking History: Never smoked Have you smoked in the past 12 months: No Number of Cigarettes Smoked Daily: 30 (1.5PPD x 60yrs) If you are a former smoker, when did you quit?: 03/2020 Information on smoking cessation initiated: No 'Breaking Loose' booklet given: 05/08/19 Hx Alcohol Use: No Drug/Substance Use Hx: No Substance Use Type: None Hx Substance Use Treatment: No Review of Systems - Review of Systems Constitutional: Yes: See HPI HEENTM: Yes: See HPI Respiratory: Yes: See HPI Cardiac (ROS): Yes: See HPI ABD/GI: Yes: See HPI : Yes: See HPI Musculoskeletal: Yes: See HPI Integumentary: Yes: See HPI Neurological: Yes: See HPI *Physical Exam - Vital Signs Last Vital Signs Temp Pulse Resp BP Pulse Ox 97.0 F L 75 20 108/68 95 07/06/19 21:38 07/06/19 21:38 07/06/19 21:38 07/06/19 21:38 07/06/19 21:38 - Physical Exam General Appearance: Yes: Nourished, Appropriately Dressed. No: Apparent Distress HEENT: positive: EOMI, REMA Neck: positive: Supple. negative: Carotid bruit Respiratory/Chest: positive: Lungs Clear, Normal Breath Sounds. negative: Respiratory Distress, Accessory Muscle Use, Rapid RR, Crackles, Rales, Rhonchi, Stridor, Wheezing Cardiovascular: positive: Regular Rhythm, Regular Rate, S1, S2. negative: Edema, JVD, Murmur Vascular Pulses: Dorsalis-Pedis (R): 4+, Doralis-Pedis (L): 4+ Gastrointestinal/Abdominal: positive: Flat, Soft, Other (yony blood in melchor). negative: Pulsatile Mass, Protuberent, Distended, Guarding, Rebound, Tenderness Musculoskeletal: negative: CVA Tenderness Extremity: positive: Normal Capillary Refill, Normal Inspection, Normal Range of Motion Integumentary: positive: Normal Color, Dry, Warm. negative: Pale Neurologic: positive: Fully Oriented, Alert, Normal Mood/Affect, Normal Response, Motor Strength 5/5 ED Treatment Course - LABORATORY CBC & Chemistry Diagram: 07/06/19 22:15 07/06/19 22:15 - RADIOLOGY Radiology Studies Ordered: Category Date Time Status CHEST X-RAY PORTABLE* [RAD] Stat Radiology 07/06/19 21:48 Ordered Medical Decision Making - Medical Decision Making 07/06/19 22:55 84 yo female pmh of A-fib on apixaban, falls and syncope, hydronephrosis, rhabdomyolysis and elevated trops, pleural effusions, a liver lesion, vitamin B12 deficiency, unsteady gait and recent DC from [facility] 06/29/2019 for hematuria and UTI presents to the ED from [facility] with hematuria. Daughter in law present in the ED and helps provide HPI. Yony blood noted in melchor catheter yesterday. During hospital course, apixaban stopped and bleeding resolved, Urology, Dr. Jose bowen recommended outpatient cystoscopy, pt has not yet had this procedure done. Pt denies any new symptoms including abdominal pain, abdominal distension, F/C/N/V, weakness/, lightheadedness, CP, SOB, back pain, changes in bowel habits. Vitals WNL Yony blood noted in melchor, no distension or abdominal pain. No clots noted HCP pt Niece (Katalina Lal, provided paperwork with pt signature stating she is HCP) at the bedside, requesting new Urologist, Dr. Ace and also do not want PCP Nelson to be part of pts care. States pt had hematuria for over 3 weeks and it has not been addressed and would like a second opinion. Pt will be admitted for hematuria and Urology evaluation in the hospital Stop AC Hemoglobin 10.3 today, on DC it was 10.8 07/06/19 23:16 Attending, Dr. Garcia discusses case with family, state that they are willing to see Dr. Jose Bowen as an outpatient Discussed Case in full with Dr. Jose Bowen, states AC should be stopped pt is safe for DC to [place] and nursing staff can set up outpatient cystoscopy bladder US done Pt s/o to night team for bladder US results and likely DC back to [place] Discharge - Discharge Information Problems reviewed: Yes Clinical Impression/Diagnosis: Hematuria Condition: Stable Disposition: HOME - Admission No - Follow up/Referral - Patient Discharge Instructions Patient Printed Discharge Instructions: DI for Hematuria Additional Instructions: Please stop taking Apixaban blood thinner medication until further instruction given by Urology and Cardiology. Make sure to have Nursing staff follow up with Dr. Jose Payne office for outpatient Cystoscopy. See your Primary Doctor within the next 24-28 hours. Return to the ER for new or concerning symptoms including but not limited to: no drainage of urine from the melchor catheter, distension of the abdomen after flushing the catheter, fevers, inability to eat or drink, abdominal pain, weakness, lightheadedness , pale. Thank you - Post Discharge Activity
[2019-07-06 22:59] LABS: BILIRUBIN,TOTAL 0.3 mg/dL (0.2-1); CALCIUM 7.9 mg/dL (8.5-10.1); CREATININE 0.5 mg/dL (0.55-1.3); POTASSIUM 3.6 mmol/L (3.5-5.1); TOT PROT 5.4 g/dl (6.4-8.2)
[2019-07-06 23:22] LABS: EPI CELLS 0 /HPF (0-5/HPF); HYALINE CASTS 0 /lpf (0-8); URINE APPEARANCE BLOODY; URINE BACTERIA FEW /hpf (NEGATIVE); URINE COLOR RED; URINE RBC >200 /hpf (0-4); URINE WBC 0 /hpf (0-5)
--- NOTE | 2019-07-07 00:32 | PDOC ---
*Physical Exam - Vital Signs Last Vital Signs Temp Pulse Resp BP Pulse Ox 97.0 F L 75 20 108/68 95 07/06/19 21:38 07/06/19 21:38 07/06/19 21:38 07/06/19 21:38 07/06/19 21:38 07/07/19 00:31 Hand-off provided by Dr. Griffin. US with no acute findings. Rest as per previous record. Plan to DC to [facility]. ED Treatment Course - LABORATORY CBC & Chemistry Diagram: 07/06/19 22:15 07/06/19 22:15 - ADDITIONAL ORDERS Additional order review: Laboratory Results 07/06/19 07/06/19 07/06/19 22:15 22:15 22:15 PT with INR 15.00 H INR 1.27 H Sodium 143 Potassium 3.6 Chloride 111 H Carbon Dioxide 26 Anion Gap 6 L BUN 9.0 Creatinine 0.5 L Est GFR (CKD-EPI)AfAm 103.73 Est GFR (CKD-EPI)NonAf 89.50 Random Glucose 87 Calcium 7.9 L Total Bilirubin 0.3 AST 17 ALT 16 Alkaline Phosphatase 95 Total Protein 5.4 L Albumin 2.0 L Urine Color Red Urine Appearance Bloody Urine pH No Result Required. Ur Specific [place] No Result Required. Urine Protein No Result Required. Urine Glucose (UA) Urine Ketones No Result Required. Urine Blood No Result Required. Urine Nitrite No Result Required. Urine Bilirubin No Result Required. Urine Urobilinogen No Result Required. Ur Leukocyte Esterase No Result Required. Urine WBC (Auto) 0 Urine RBC (Auto) >200 Urine Casts (Auto) 0 U Epithel Cells (Auto) 0 Urine Bacteria (Auto) Few 07/06/19 22:15 RBC 3.54 L MCV 86.9 MCHC 33.5 RDW 16.8 H MPV 7.2 L Neutrophils % 65.5 Lymphocytes % 19.8 D Monocytes % 10.5 H Eosinophils % 3.0 Basophils % 1.2 Discharge - Discharge Information Problems reviewed: Yes Clinical Impression/Diagnosis: Hematuria Qualifiers: Hematuria type: unspecified type Qualified Code(s): R31.9 - Hematuria, unspecified Condition: Stable Disposition: ALF FACILITY - Admission No - Follow up/Referral Referrals: Aretha Damon MD [Primary Care Provider] - - Patient Discharge Instructions Patient Printed Discharge Instructions: DI for Hematuria Additional Instructions: Please stop taking Apixaban blood thinner medication until further instruction given by Urology and Cardiology. Make sure to have Nursing staff follow up with Dr. Jose Payne office for outpatient Cystoscopy. See your Primary Doctor within the next 24-28 hours. Return to the ER for new or concerning symptoms including but not limited to: no drainage of urine from the melchor catheter, distension of the abdomen after flushing the catheter, fevers, inability to eat or drink, abdominal pain, weakness, lightheadedness , pale. Thank you - Post Discharge Activity
[2019-07-07 01:18] VITALS: BP 113/60; PULSE 72
--- NOTE | 2019-07-07 09:50 | EKG ---
Test Reason : Blood Pressure : / mmHG Vent. Rate : 070 BPM Atrial Rate : 070 BPM P-R Int : 170 ms QRS Dur : 086 ms QT Int : 414 ms P-R-T Axes : 079 -22 037 degrees QTc Int : 447 ms POOR DATA QUALITY, INTERPRETATION MAY BE ADVERSELY AFFECTED NORMAL SINUS RHYTHM NONSPECIFIC ST AND T WAVE ABNORMALITY ABNORMAL ECG WHEN COMPARED WITH ECG OF 30-JUN-2019 09:47, T WAVE INVERSION NOW EVIDENT IN ANTERIOR LEADS Confirmed by Giovani Patrick MD ([id number]) on 07/07/2019 9:50:07 AM Referred By: Confirmed By:Giovani Patrick MD
== END 2019-07-07 01:19 ==
LOC: SUPCPDRO 21:20 → JER 21:20
DX: R31.9 Hematuria, unspecified (principal); D68.32 Hemorrhagic disorder due to extrinsic circulating anticoagulants; T45.515A Adverse effect of anticoagulants, initial encounter; Y92.128 Other place in nursing home as the place of occurrence of the external cause; I48.91 Unspecified atrial fibrillation; Z79.01 Long term (current) use of anticoagulants; I10 Essential (primary) hypertension; F03.90 Unspecified dementia, unspecified severity, without behavioral disturbance, psychotic disturbance, mood disturbance, and anxiety; K44.9 Diaphragmatic hernia without obstruction or gangrene; E53.9 Vitamin B deficiency, unspecified; R26.89 Other abnormalities of gait and mobility; R29.6 Repeated falls; Z87.440 Personal history of urinary (tract) infections; Z87.39 Personal history of other diseases of the musculoskeletal system and connective tissue; Z88.0 Allergy status to penicillin
CPT/HCPCS: 36415; 71045-TC-FY; 76856-TC; 80053; 81003; 85025; 85610; 87086; 87186; 93005; 93010; 99285-25

== ENCOUNTER 2021-03-19 11:39 | Inpatient (IN) | payer OTHER, BC ==
[2021-03-19] MEDS ORDERED: ACETAMINOPHEN 1000 MG/100 ML VIAL IVPB ONE (12:40)
[2021-03-19] MEDS ORDERED: morphine CARPU-JECT 4 MG/1 ML DISP.SYRIN IVPUSH ONE (13:27)
[2021-03-19] MEDS ORDERED: LACTATED RINGERS SOLUTION 1000 ML INFUS.BAG IV ONE (13:33)
[2021-03-19 13:34] LABS: BASO % 0.2 % (0-2.0); HEMATOCRIT 46.4 % (32.4-45.2); HEMOGLOBIN 15.3 GM/dL (10.7-15.3); LYMPH % 6.4 % (8-40); MCH 27.7 pg (25.7-33.7); MCHC 33.1 g/dl (32.0-36.0); MEAN CELL VOLUME 83.6 fl (80-96); MEAN PLT VOLUME 8.1 fl (7.5-11.1); MONO % 8.5 % (3.8-10.2); NEUT % 84.9 % (42.8-82.8); PLATELET COUNT 279 10^3/uL (134-434); RBC 5.55 M/mm3 (3.60-5.2); RDW 18.1 % (11.6-15.6)
[2021-03-19 13:47] LABS: INR 1.04 (0.83-1.09); PROTHROMBIN TIME (PATIENT) 11.7 SEC (9.7-13.0)
[2021-03-19 13:50] LABS: ACTIVATED PTT 22.7 SECONDS (25.2-36.5)
[2021-03-19] MEDS ORDERED: morphine SULFATE 4 MG/ML VIAL ONE (13:52)
[2021-03-19] MEDS ORDERED: ACETAMINOPHEN INJECTION 100 ML IVPB ONE (13:52)
[2021-03-19 14:08] LABS: ALBUMIN 3.7 g/dl (3.4-5.0); BLOOD UREA NITROGEN 28.2 mg/dL (7-18); CALCIUM 10.3 mg/dL (8.5-10.1)
[2021-03-19 14:12] LABS: CREATININE 0.7 mg/dL (0.55-1.3)
[2021-03-19 14:13] LABS: BILIRUBIN,TOTAL 0.9 mg/dL (0.2-1); TOT PROT 8.6 g/dl (6.4-8.2)
[2021-03-19 14:18] LABS: LACTIC ACID 2.7 mmol/L (0.4-2.0)
[2021-03-19] MEDS ORDERED: CEFEPIME HCL/D5W 2 GM/50 ML BAG IVPB ONE (14:24)
[2021-03-19] MEDS ORDERED: MINERAL OIL ENEMA 133 ML ENEMA PR ONE (17:26)
[2021-03-19] MEDS ORDERED: CEFEPIME 1 GM/100 ML BAG IVPB ONE (18:29)
[2021-03-19] MEDS: LACTATED RINGERS SOLUTION 1,000 ML IV SCH (21:45)
[2021-03-20] MEDS ORDERED: MINERAL OIL ENEMA 133 ML ENEMA PR ONE ×2 (01:00→10:00)
[2021-03-20 08:40] LABS: HEMATOCRIT 38.3 % (32.4-45.2); HEMOGLOBIN 12.5 GM/dL (10.7-15.3); MCH 28.4 pg (25.7-33.7); MCHC 32.7 g/dl (32.0-36.0); MEAN PLT VOLUME 8.3 fl (7.5-11.1); PLATELET COUNT 181 10^3/uL (134-434); RDW 17.9 % (11.6-15.6); WHITE BLOOD COUNT 5.1 K/mm3 (4.0-10.0)
[2021-03-20 09:02] LABS: BLOOD UREA NITROGEN 30.9 mg/dL (7-18); MAGNESIUM 2.8 mg/dL (1.8-2.4)
[2021-03-20 09:05] LABS: CREATININE 0.6 mg/dL (0.55-1.3)
[2021-03-20 09:06] LABS: PHOSPHOROUS 2.6 mg/dL (2.5-4.9)
[2021-03-20 09:16] LABS: CALCIUM 8.7 mg/dL (8.5-10.1)
[2021-03-20] MEDS ORDERED: PNEUMOC 13-VAL CONJ-DIP CRM/PF 0.5 ML DISP.SYRIN IM ONE (10:00)
[2021-03-20] MEDS ORDERED: MINERAL OIL ENEMA 133 ML ENEMA RC ONE (10:55)
[2021-03-20] MEDS: LACTATED RINGERS SOLUTION 1,000 ML IV SCH (20:22)
[2021-03-21] MEDS: LACTATED RINGERS SOLUTION 1,000 ML IV SCH (06:43)
[2021-03-21 08:35] LABS: BASO % 0.4 % (0-2.0); EOS % 1.7 % (0-4.5); HEMATOCRIT 34.8 % (32.4-45.2); HEMOGLOBIN 11.5 GM/dL (10.7-15.3); LYMPH % 11.4 % (8-40); MCH 28.5 pg (25.7-33.7); MCHC 33.1 g/dl (32.0-36.0); MEAN CELL VOLUME 86.1 fl (80-96); MEAN PLT VOLUME 8.2 fl (7.5-11.1); NEUT % 73.5 % (42.8-82.8); PLATELET COUNT 162 10^3/uL (134-434); RBC 4.04 M/mm3 (3.60-5.2); WHITE BLOOD COUNT 3.9 K/mm3 (4.0-10.0)
[2021-03-21 09:30] LABS: ALBUMIN 2.3 g/dl (3.4-5.0); BILIRUBIN,TOTAL 0.8 mg/dL (0.2-1); CALCIUM 7.7 mg/dL (8.5-10.1); CREATININE 0.4 mg/dL (0.55-1.3); TOT PROT 5.4 g/dl (6.4-8.2)
[2021-03-21 14:20] VITALS: BMI 19.2
[2021-03-21] MEDS ORDERED: POTASSIUM CHLORIDE TABS 20 MEQ TABLET.ER (FP) PO ONE (14:47)
[2021-03-21] MEDS: POLYETHYLENE GLYCOL (HEALTHYLAX) 3350 17 GM PACKET PO SCH ×2 (15:34→21:15)
[2021-03-21] MEDS: ALBUTEROL SO4 2.5/IPRATROPIUM 0.5 INH SOL 3 ML VIAL.NEB. NEB SCH ×2 (15:56→20:10)
[2021-03-21] MEDS: METOPROLOL TARTRATE 25 MG TABLET (FP) PO SCH (21:16)
[2021-03-22] MEDS: LACTATED RINGERS SOLUTION 1,000 ML IV SCH ×2 (02:56→22:51)
[2021-03-22] MEDS: POLYETHYLENE GLYCOL (HEALTHYLAX) 3350 17 GM PACKET PO SCH ×3 (05:55→22:51)
[2021-03-22] MEDS: ALBUTEROL SO4 2.5/IPRATROPIUM 0.5 INH SOL 3 ML VIAL.NEB. NEB SCH ×4 (07:15→20:19)
[2021-03-22] MEDS: METOPROLOL TARTRATE 25 MG TABLET (FP) PO SCH ×2 (09:25→22:51)
[2021-03-22 11:56] LABS: BASO % 0.2 % (0-2.0); EOS % 0.3 % (0-4.5); HEMATOCRIT 35.6 % (32.4-45.2); HEMOGLOBIN 11.7 GM/dL (10.7-15.3); LYMPH % 7.8 % (8-40); MCHC 32.8 g/dl (32.0-36.0); MEAN CELL VOLUME 85.5 fl (80-96); MEAN PLT VOLUME 8.3 fl (7.5-11.1); MONO % 9.6 % (3.8-10.2); NEUT % 82.1 % (42.8-82.8); PLATELET COUNT 186 10^3/uL (134-434); RBC 4.16 M/mm3 (3.60-5.2); RDW 17.9 % (11.6-15.6); WHITE BLOOD COUNT 5.5 K/mm3 (4.0-10.0)
[2021-03-22 12:13] LABS: CHLORIDE 105 mmol/L (98-107); SODIUM 141 mmol/L (136-145)
[2021-03-22 12:14] LABS: BLOOD UREA NITROGEN 6.8 mg/dL (7-18); CO2 29 mmol/L (21-32); MAGNESIUM 2.1 mg/dL (1.8-2.4)
[2021-03-22 12:16] LABS: GLUCOSE,RANDOM 134 mg/dL (74-106)
[2021-03-22 12:19] LABS: CREATININE 0.5 mg/dL (0.55-1.3)
[2021-03-22 12:24] LABS: ANION GAP 7 MMOL/L (8-16)
[2021-03-22] MEDS: KCL 10 MEQ IVPB 10 MEQ/100 ML INFUS.BAG IVPB SCH ×3 (14:33→16:36)
[2021-03-22] MEDS ORDERED: MELATONIN 1 MG TABLET PO ONE (23:07)
[2021-03-23] MEDS: POLYETHYLENE GLYCOL (HEALTHYLAX) 3350 17 GM PACKET PO SCH ×3 (06:11→22:16)
[2021-03-23] MEDS: LACTATED RINGERS SOLUTION 1,000 ML IV SCH (06:11)
[2021-03-23] MEDS: METOPROLOL TARTRATE 25 MG TABLET (FP) PO SCH ×2 (10:32→22:16)
[2021-03-23 13:09] LABS: BLOOD UREA NITROGEN 4.5 mg/dL (7-18); CALCIUM 8.3 mg/dL (8.5-10.1); CREATININE 0.4 mg/dL (0.55-1.3); MAGNESIUM 2.1 mg/dL (1.8-2.4)
[2021-03-23] MEDS ORDERED: POTASSIUM CHLORIDE TABS 20 MEQ TABLET.ER (FP) PO ONE (13:39)
[2021-03-23] MEDS: ALBUTEROL SO4 2.5/IPRATROPIUM 0.5 INH SOL 3 ML VIAL.NEB. NEB SCH (16:20)
[2021-03-24 05:58] VITALS: TEMP 97.5
[2021-03-24] MEDS: POLYETHYLENE GLYCOL (HEALTHYLAX) 3350 17 GM PACKET PO SCH ×2 (06:45→14:54)
[2021-03-24] MEDS: ALBUTEROL SO4 2.5/IPRATROPIUM 0.5 INH SOL 3 ML VIAL.NEB. NEB SCH ×3 (07:45→16:09)
[2021-03-24 10:19] VITALS: BP 110/69; PULSE 76
[2021-03-24] MEDS: METOPROLOL TARTRATE 25 MG TABLET (FP) PO SCH (10:21)
[2021-03-24 12:07] LABS: BLOOD UREA NITROGEN 3.4 mg/dL (7-18); CALCIUM 8.5 mg/dL (8.5-10.1); CREATININE 0.5 mg/dL (0.55-1.3)
== END 2021-03-24 18:30 | DRG 389 ==
LOC: JER 11:39 → JERBED 17:14 → J7W 20:42
PROVIDERS: ADMIT Internal Medicine; ATTEND Family Medicine
DX: K56.41 Fecal impaction (principal); E87.2 Acidosis; K43.6 Other and unspecified ventral hernia with obstruction, without gangrene; I48.91 Unspecified atrial fibrillation; F03.90 Unspecified dementia, unspecified severity, without behavioral disturbance, psychotic disturbance, mood disturbance, and anxiety; E53.8 Deficiency of other specified B group vitamins; E87.6 Hypokalemia; J44.9 Chronic obstructive pulmonary disease, unspecified; I10 Essential (primary) hypertension; R79.89 Other specified abnormal findings of blood chemistry; R94.5 Abnormal results of liver function studies
CPT/HCPCS: 36415; 74018-TC-FY; 74019-TC-FY; 74176-TC; 74177-TC; 80048; 80053; 83605; 83735; 84100; 84443; 85025; 85027; 85610; 85730; 86850; 86900; 86901; 90670; 93005; 93010; 94640; 99285-25; C9803; J0131; U0003; U0005

== ENCOUNTER 2021-07-17 23:02 | Emergency (ER) | payer OTHER, BC ==
[2021-07-17 23:26] VITALS: BMI 24.0
[2021-07-18] MEDS ORDERED: ACETAMINOPHEN 1000 MG/100 ML BAG IVPB ONE (00:03)
[2021-07-18] MEDS ORDERED: ACETAMINOPHEN INJECTION 100 ML IVPB ONE (01:03)
[2021-07-18 01:27] LABS: ALBUMIN 2.7 g/dl (3.4-5.0); CALCIUM 8.9 mg/dL (8.5-10.1)
[2021-07-18 01:28] LABS: BLOOD UREA NITROGEN 11.9 mg/dL (7-18); INR 1.01 (0.83-1.09); PROTHROMBIN TIME (PATIENT) 11.6 SEC (9.7-13.0)
[2021-07-18 01:30] LABS: ACTIVATED PTT 28.3 SECONDS (25.2-36.5); CREATININE 0.6 mg/dL (0.55-1.3)
[2021-07-18 01:31] LABS: BILIRUBIN,TOTAL 0.4 mg/dL (0.2-1); TOT PROT 6.7 g/dl (6.4-8.2)
[2021-07-18 03:03] LABS: EPI CELLS 14 /uL (0-25.1); HYALINE CASTS 1 /uL (0-3.1); URINE APPEARANCE TURBID; URINE BACTERIA >9,000 /uL (0-1359); URINE BILIRUBIN NEGATIVE (NEGATIVE); URINE COLOR YELLOW; URINE GLUCOSE (UA) NEGATIVE (NEGATIVE); URINE KETONE NEGATIVE (NEGATIVE); URINE LEUK ESTERASE 3+ (NEGATIVE); URINE NITRITE POSITIVE (NEGATIVE); URINE PROTEIN 1+ (NEGATIVE); URINE RBC 5022 /uL (0-23.9); URINE UROBILINOGEN 0.2 mg/dL (0.2-1.0); URINE WBC 5022 /uL (0-25.8)
[2021-07-18 03:17] LABS: BASO % 0.5 % (0-2.0); EOS % 1.9 % (0-4.5); HEMATOCRIT 33.8 % (32.4-45.2); HEMOGLOBIN 11.2 GM/dL (10.7-15.3); LYMPH % 8.4 % (8-40); MCH 28.5 pg (25.7-33.7); MEAN CELL VOLUME 86.3 fl (80-96); MEAN PLT VOLUME 7.5 fl (7.5-11.1); MONO % 6.4 % (3.8-10.2); NEUT % 82.8 % (42.8-82.8); PLATELET COUNT 237 10^3/uL (134-434); RBC 3.91 M/mm3 (3.60-5.2); RDW 14.9 % (11.6-15.6); WHITE BLOOD COUNT 4.9 K/mm3 (4.0-10.0)
[2021-07-18] MEDS ORDERED: CEFTRIAXONE 1 GM/50 ML BAG ONE (04:20)
[2021-07-18] MEDS ORDERED: CEFTRIAXONE 1,000 MG in DEXTROSE 5%-WATER - 50 ML IVPB ONE (04:31)
[2021-07-18 07:01] VITALS: TEMP 97.1
[2021-07-18 08:42] VITALS: BP 107/98; PULSE 57
== END 2021-07-18 09:08 | disposition short-term general hospital (02) ==
LOC: JER 23:02
PROC: 3E033GC Introduction of Other Therapeutic Substance into Peripheral Vein, Percutaneous Approach (ICD-10-PCS; principal; 2021-07-17)
DX: S22.42XA Multiple fractures of ribs, left side, initial encounter for closed fracture (principal); S00.83XA Contusion of other part of head, initial encounter; N39.0 Urinary tract infection, site not specified; W19.XXXA Unspecified fall, initial encounter
CPT/HCPCS: 36415; 70450-TC; 70486-TC; 71260-TC; 72125-TC; 74177-TC; 80053; 81003; 82550; 83690; 84484; 85025; 85610; 85730; 86850; 86900; 86901; 93005; 93010; 99291; 99292; C9803-CS; Q9967; U0003; U0005